=== PATIENT | female | born 1960 | race Caucasian/White ===

== ENCOUNTER 2017-07-21 19:54 | Emergency (ER) | payer BC ==
[~2017-07-21] VITALS: Ht 175.3 cm; Wt 155.4 kg
[2017-07-21 19:58] VITALS: TEMP 36.9; Ht 175.3 cm; Wt 155.4 kg
[2017-07-21] MEDS ORDERED: METO25TA56 PO (20:48)
[2017-07-21] MEDS ORDERED: ALLO100T PO (20:49)
[2017-07-21] MEDS ORDERED: PARO1TAB27 PO (20:50)
[2017-07-21] MEDS ORDERED: LEVO112T4 PO (20:51)
[2017-07-21] MEDS ORDERED: NXM/40 PO (20:52)
[2017-07-21] MEDS ORDERED: NVLGI7030 SQ ×2 (20:53→20:54)
[2017-07-21] MEDS ORDERED: LORA-741 PO (20:55)
[2017-07-21] MEDS ORDERED: DICY20TA35 PO (20:56)
[2017-07-21 21:01] LABS: BASO % 0.6 %; BASO ABS # 0.05 K/uL (0-0.2); COMPLETE YES; EOS % 3.4 %; HEMATOCRIT 39.5 % (37-47); IG% 0.3 %; LYMPH % 35.3 %; LYMPH ABS # 2.73 K/uL (1.2-3.4); MEAN CELL VOLUME 85.1 fL (80-100); MEAN CORPUSCULAR HEMOGLOBIN 29.5 pg (25-34); MEAN CORPUSCULAR HGB CONC 34.7 g/dl (32-36); MEAN PLATELET VOLUME 9.2 fL (7.4-10.4); MONO % 7.8 %; NEUT % 52.6 %; PLATELET COUNT 310 K/uL (130-400); RED BLOOD COUNT 4.64 M/uL (4.2-5.4); WHITE BLOOD COUNT 7.73 K/uL (4.8-10.8)
[2017-07-21 21:07] LABS: ALT/SGPT 22 U/L (12-78); BLOOD UREA NITROGEN 21 mg/dl (7-18); BUN/CREATININE RATIO 25.9 (10-20); CALCIUM 9.3 mg/dl (8.5-10.1); CARBON DIOXIDE 30 mmol/L (21-32); CHLORIDE 103 mmol/L (98-107); CREATININE 0.82 mg/dl (0.60-1.20); GLUCOSE 116 mg/dl (70-99); POTASSIUM 3.7 mmol/L (3.5-5.1); SODIUM 139 mmol/L (136-145)
[2017-07-21 21:12] LABS: ALB/GLOB RATIO 1.1 (0.9-2); ALKALINE PHOSPHATASE 90 U/L (45-117); AST/SGOT 16 U/L (15-37)
--- NOTE | 2017-07-21 21:14 | DIAGNOSTIC IMAGING REPORT ---
CHEST ONE VIEW PORTABLE HISTORY: 57 years-old Female epigastric and chest pain acute epigastric and chest pain with shortness of breath COMPARISON: Chest radiograph 10/09/2014 TECHNIQUE: Upright AP view of the chest FINDINGS: Cardiac silhouette is enlarged. Hazy bibasilar opacities are likely secondary to composite density artifact. Linear subsegmental atelectasis of the lateral left midlung redemonstrated. No pneumothorax, pleural effusion or focal airspace consolidation. Patient obesity noted. Mild convex right curvature of the midthoracic spine. Bones are grossly intact. IMPRESSION: No acute cardiopulmonary process. The above report was generated using voice recognition software. It may contain grammatical, syntax or spelling errors. Electronically signed by: Adonay Hernandez M.D. 07/21/2017 9:13 PM Dictated Date/Time: 07/21/2017 9:12 PM
[2017-07-21 21:58] LABS: URINE APPEARANCE CLEAR (CLEAR); URINE BILIRUBIN NEG (NEG); URINE COLOR YELLOW; URINE EPITHELIAL CELL AUTO >30 /lpf (0-5); URINE NITRITE NEG (NEG); UROBILINOGEN NEG (NEG); ZZUR CULT IF INDIC CLEAN CATCH NO
[2017-07-21] MEDS ORDERED: BENTYL HOME PACK 10 MG VIAL PO ONE (22:15)
[2017-07-21] MEDS ORDERED: RANITIDINE HCL 150 MG TAB PO ONE (22:15)
[2017-07-21 22:22] LABS: MANUAL MICROSCOPIC REQUIRED? NO; REVIEW REQ? NO
[2017-07-21] MEDS ORDERED: DICY10CA55 PO (22:35)
[2017-07-21] MEDS ORDERED: RANITAB6 PO (22:35)
--- NOTE | 2017-07-21 22:37 | EMERGENCY ROOM VISIT NOTE ---
History First contact with patient: 20:06 Chief Complaint: SHORTNESS OF BREATH Stated Complaint: SOB WITH EXERTION,EPIGASTRIC PAIN,UTI SYMPTOMS Nursing Triage Summary: c/o SOB worsening with exertion, difficulty with deep breathing. Urinary frequency and urgency History of Present Illness The patient is a 57 year old female who presents to the Emergency Room with multiple complaints. The patient states that for the past one week, she has had epigastric pain with radiation into the chest. She states she is short of breath at times. She has some nausea, but has not vomited. She also reports a dry cough. She states the pain as a burning sensation and rates the discomfort a 2/10. She does have a history of a hiatal hernia and Perla's esophagus and takes Nexium daily. She is scheduled for an EGD next month. She reports she has had a PE in the past 7 Years Ago. She was seen in an ER in [facility] in December of this year due to similar symptoms or shortness of breath and was admitted for a cardiac workup. At that time, she had a positive stress test but negative heart catheterization. The patient states that she only has one kidney and has frequent UTIs. She states she has had increased frequency of urination the last few days and is concerned she could be developing a urinary tract infection. The patient denies any fevers/chills or recent illness. She denies any changes in bowel movements. She does report she sometimes takes Bentyl which helped her symptoms. Review of Systems A complete 10 point review of systems was reviewed with the patient with pertinent positives and negatives as per history of present illness. All else were negative. Past Medical/Surgical History Medical Problems: (1) Pneumonia Social History Smoking Status: Former Smoker Marital Status: Housing Status: lives with family Occupation Status: employed Current/Historical Medications Scheduled Allopurinol (Zyloprim), 200 MG PO DAILY Dicyclomine Hcl (Bentyl), 1 CAP PO TID Esomeprazole Magnesium (Nexium), 40 MG PO DAILY Insulin Aspart 70/30 (Novolog Mix 70/30), 12 UNITS SQ QAM Insulin Aspart 70/30 (Novolog Mix 70/30), 16 UNITS SQ QPM Levothyroxine Sodium (Levothyroxine Sodium), 112 MCG PO DAILY Metoprolol Tartrate (Lopressor) (Lopressor), 12.5 MG PO BID Paroxetine (Paxil), 20 MG PO DAILY Ranitidine Hcl (Zantac 150 Maximum Streng), 1 TAB PO BID Scheduled PRN Dicyclomine Hcl (Bentyl), 20 MG PO TID PRN for UNDECIDED Lorazepam (Ativan), 0.5 MG PO BID PRN for Anxiety Physical Exam Vital Signs Date Time Temp Pulse Resp B/P (MAP) Pulse Ox O2 Delivery O2 Flow Rate FiO2 07/21/17 22:51 75 18 135/55 96 07/21/17 21:42 67 20 133/46 94 Room Air 07/21/17 20:13 Room Air 07/21/17 19:58 36.9 80 20 180/88 95 Room Air Physical Exam VITALS: Vitals are noted on the nurse's note and reviewed by myself. Vital signs stable. GENERAL: This is a 57-year-old obese female, in no acute distress, nondiaphoretic, well-developed well-nourished. SKIN: The skin was without rashes. EARS: External auditory canals clear, tympanic membranes pearly polanco without erythema or effusion bilaterally. EYES: Pupils equal round and reactive to light and accommodation. MOUTH: Mucous membranes moist. Tonsils are not enlarged. Pharynx without erythema or exudate. NECK: Supple without nuchal rigidity. No lymphadenopathy. HEART: Regular rate and rhythm without murmurs gallops or rubs. LUNGS: Clear to auscultation bilaterally without wheezes, rales or rhonchi. ABDOMEN: Positive bowel sounds x 4. Soft, mild epigastric tenderness to palpation. NEURO: Patient was alert and oriented to person place and time. Medical Decision & Procedures ER Provider Diagnostic Interpretation: CHEST ONE VIEW PORTABLE HISTORY: 57 years-old Female epigastric and chest pain acute epigastric and chest pain with shortness of breath COMPARISON: Chest radiograph 10/09/2014 TECHNIQUE: Upright AP view of the chest FINDINGS: Cardiac silhouette is enlarged. Hazy bibasilar opacities are likely secondary to composite density artifact. Linear subsegmental atelectasis of the lateral left midlung redemonstrated. No pneumothorax, pleural effusion or focal airspace consolidation. Patient obesity noted. Mild convex right curvature of the midthoracic spine. Bones are grossly intact. IMPRESSION: No acute cardiopulmonary process. Laboratory Results 07/21/17 20:46 Red Blood Count 4.64, Mean Corpuscular Volume 85.1, Mean Corpuscular Hemoglobin 29.5, Mean Corpuscular Hemoglobin Concent 34.7, Mean Platelet Volume 9.2, Neutrophils (%) (Auto) 52.6, Lymphocytes (%) (Auto) 35.3, Monocytes (%) (Auto) 7.8, Eosinophils (%) (Auto) 3.4, Basophils (%) (Auto) 0.6, Neutrophils # (Auto) 4.07, Lymphocytes # (Auto) 2.73, Monocytes # (Auto) 0.60, Eosinophils # (Auto) 0.26, Basophils # (Auto) 0.05 07/21/17 20:46 Test 07/21/17 20:46 07/21/17 21:40 White Blood Count 7.73 K/uL (4.8-10.8) Red Blood Count 4.64 M/uL (4.2-5.4) Hemoglobin 13.7 g/dL (12.0-16.0) Hematocrit 39.5 % (37-47) Mean Corpuscular Volume 85.1 fL (80-100) Mean Corpuscular Hemoglobin 29.5 pg (25-34) Mean Corpuscular Hemoglobin Concent 34.7 g/dl (32-36) Platelet Count 310 K/uL (130-400) Mean Platelet Volume 9.2 fL (7.4-10.4) Neutrophils (%) (Auto) 52.6 % Lymphocytes (%) (Auto) 35.3 % Monocytes (%) (Auto) 7.8 % Eosinophils (%) (Auto) 3.4 % Basophils (%) (Auto) 0.6 % Neutrophils # (Auto) 4.07 K/uL (1.4-6.5) Lymphocytes # (Auto) 2.73 K/uL (1.2-3.4) Monocytes # (Auto) 0.60 K/uL (0.11-0.59) Eosinophils # (Auto) 0.26 K/uL (0-0.5) Basophils # (Auto) 0.05 K/uL (0-0.2) RDW Standard Deviation 42.1 fL (36.4-46.3) RDW Coefficient of Variation 13.6 % (11.5-14.5) Immature Granulocyte % (Auto) 0.3 % Immature Granulocyte # (Auto) 0.02 K/uL (0.00-0.02) D-Dimer 280 ug/L FEU (0-500) Anion Gap 6.0 mmol/L (3-11) Est Creatinine Clear Calc Drug Dose 123.2 ml/min Estimated GFR () 92.7 Estimated GFR (Non- 80.0 BUN/Creatinine Ratio 25.9 (10-20) Calcium Level 9.3 mg/dl (8.5-10.1) Total Bilirubin 0.5 mg/dl (0.2-1) Aspartate Amino Transf (AST/SGOT) 16 U/L (15-37) Alanine Aminotransferase (ALT/SGPT) 22 U/L (12-78) Alkaline Phosphatase 90 U/L (45-117) Troponin I < 0.015 ng/ml (0-0.045) Total Protein 7.7 gm/dl (6.4-8.2) Albumin 4.0 gm/dl (3.4-5.0) Globulin 3.7 gm/dl (2.5-4.0) Albumin/Globulin Ratio 1.1 (0.9-2) Lipase 124 U/L (73-393) Urine Color YELLOW Urine Appearance CLEAR (CLEAR) Urine pH 6.0 (4.5-7.5) Urine Specific [place] 1.010 (1.000-1.030) Urine Protein NEG (NEG) Urine Glucose (UA) NEG (NEG) Urine Ketones NEG (NEG) Urine Occult Blood NEG (NEG) Urine Nitrite NEG (NEG) Urine Bilirubin NEG (NEG) Urine Urobilinogen NEG (NEG) Urine Leukocyte Esterase TRACE (NEG) Urine WBC (Auto) 1-5 /hpf (0-5) Urine RBC (Auto) 0-4 /hpf (0-4) Urine Hyaline Casts (Auto) 0 /lpf (0-5) Urine Epithelial Cells (Auto) >30 /lpf (0-5) Urine Bacteria (Auto) NEG (NEG) Date/Time Source Procedure Growth Status 07/21/17 21:40 Urine , Clean Catch Urine Culture - Final Escherichia Coli Complete Medications Administered Medications (Trade) Dose Ordered Sig/Vikki Route Start Time Stop Time Status Last Admin Dose Admin Dicyclomine HCl (Dicyclomine HCl 10MG Home Pack) 1 ea UD ONCE PO 07/21/17 22:15 07/21/17 22:16 DC 07/21/17 22:28 1 EA Ranitidine HCl (zANTac TAB) 150 mg NOW ONCE PO 07/21/17 22:15 07/21/17 22:16 DC 07/21/17 22:28 150 MG ECG Rate (beats per minute): 65 Rhythm: normal sinus Findings: other (poor R-wave progression) Comparison ECG Date: no prior available ED Course The patient was evaluated as above. Labs were drawn and IV access was obtained. Patient was medicated with by mouth Zantac. Discharge instructions were reviewed with the patient. The patient verbalized understanding of my assessment and treatment plan and was discharged home in good condition. Medical Decision Differential diagnosis includes ACS, VT, PE, GERD, gastritis, gallbladder disease, urinary tract infection, among others. The patient is a 57-year-old female who presents today complaining of epigastric discomfort, intermittent shortness of breath as well as urinary burning and frequency. Patient evidently has a long history of GERD and takes Nexium daily. She has an EGD scheduled within the next month. The patient has had a negative heart catheterization within the last year. Her troponin today is negative, and with symptoms for greater than 6 hours if do not feel a repeat troponin is indicated. D-dimer was not elevated. Chest x-ray was unremarkable. Labs showed no leukocytosis, anemia or concerning electrolyte abnormalities. Urinalysis was not suggestive of infection, however given the patient's history of recurrent UTIs a culture will be sent and is pending. Patient was advised to follow-up closely with her primary care provider at home regarding today's symptoms. I do not feel they are likely to be cardiac in nature and seem to be related to her chronic GERD. She was given a dose of Zantac and instructed to start this at home. She requested a prescription for Bentyl and was given this as well. She was advised to return to the emergency department with any worsening or new/concerning symptoms. The patient's case was reviewed with Dr. Cerrato, ED attending physician, who agreed with my assessment and treatment plan. Based on the patient's presentation and work up, I feel the patient is stable for outpatient treatment. The patient was educated to return to the emergency department for any worsening of their current condition or new/concerning symptoms. She will follow up with her PCP. Medication Reconcilliation Current Medication List: was personally reviewed by me Blood Pressure Screening Patient's blood pressure: Normal blood pressure Impression Primary Impression: Epigastric abdominal pain Departure Information Dispostion Home / Self-Care Condition GOOD Prescriptions Ranitidine Hcl (ZANTAC 150 MAXIMUM STRENG) 150 Mg Tab 1 TAB PO BID for 14 Days, #28 TAB Prov: Roxane Vines PA-C 07/21/17 Dicyclomine Hcl (BENTYL) 10 Mg Cap 1 CAP PO TID for 7 Days, #21 CAP Prov: Roxane Vines PA-C 07/21/17 Referrals No Doctor, Assigned (PCP) Patient Instructions My [facility] Additional Instructions Zantac as prescribed. Rest and drink plenty of fluids. Follow up with your PCP this week. Call for appointment. Return to the ED with any worsening or new/concerning symptoms.
[2017-07-21 22:51] VITALS: BP 135/55; PULSE 75; O2SAT 96
--- NOTE | 2017-07-23 12:28 | Pharmacy Progress Note ---
ED Pharmacist Culture FollowUp Date of Service: Jul 23, 2017. Called patient regarding E. coli urine culture. Prescription for bactrim 1 DS tab PO BID X 5 days called to [facility] ([phone]) at the patient's request. Case discussed with Dr. Arredondo, who is the prescribing provider.
== END 2017-07-21 22:53 | disposition home or self-care (01) ==
LOC: C.EDB 19:56
DX: R10.13 Epigastric pain (principal); R06.02 Shortness of breath; R35.0 Frequency of micturition; K21.9 Gastro-esophageal reflux disease without esophagitis; Z87.891 Personal history of nicotine dependence

== ENCOUNTER 2024-09-24 20:07 | Observation (INO) ==
[2024-09-24 21:03] LABS: Albumin Globulin Ratio 1.7 (0.9-2); Albumin Level 4.8 gm/dl (3.4-5.0); BUN Creatinine Ratio 23.3 (10-20); Bilirubin,Total 0.6 mg/dl (0.2-1.0); Calcium 9.8 mg/dl (8.6-10.3); Creatinine Clr Calc Pharmacy 106.7 ml/min; Globulin 2.8 gm/dl (2.5-4.0); Potassium 3.4 mmol/L (3.5-5.1); Total Protein 7.6 gm/dl (6.0-8.3)
[2024-09-24 21:09] LABS: Troponin I High Sensitivity 2.7 pg/ml (0-14)
[2024-09-24 21:22] LABS: INR 0.9 (0.9-1.1); Partial Thromboplastin Time 26 Seconds (21-31); Prothrombin Time 10.3 Seconds (9.0-12.0)
[2024-09-24 21:33] LABS: Adenovirus PCR Not Detected (NotDetected); Bordetella parapertussis PCR Not Detected (NotDetected); Bordetella pertussis PCR Not Detected (NotDetected); Chlamydia pneumoniae PCR Not Detected (NotDetected); Coronavirus 229E PCR Not Detected (NotDetected); Coronavirus CoV-2 (COVID19)PCR Not Detected (NotDetected); Coronavirus HKU1 PCR Not Detected (NotDetected); Coronavirus NL63 PCR Not Detected (NotDetected); Coronavirus OC43PCR Not Detected (NotDetected); Human Metapneumovirus PCR Not Detected (NotDetected); Influenza A PCR Not Detected (NotDetected); Influenza B PCR Not Detected (NotDetected); Mycoplasma pneumoniae PCR Not Detected (NotDetected); Parainfluenza Virus 1 PCR Not Detected (NotDetected); Parainfluenza Virus 2 PCR Not Detected (NotDetected); Parainfluenza Virus 3 PCR Not Detected (NotDetected); Parainfluenza Virus 4 PCR Not Detected (NotDetected); Respiratory Syncytial VirusPCR Not Detected (NotDetected); Rhinovirus/Enterovirus PCR Not Detected (NotDetected)
[2024-09-24] MEDS: NITROGLYCERIN 2% OINTMENT 30GM TUBE EXT STA (21:37)
[2024-09-24 21:38] LABS: Basophils # (auto) 0.07 K/uL (0.00-0.20); Basophils % (auto) 1.3 %; Eosinophils # (auto) 0.18 K/uL (0.00-0.50); Eosinophils % (auto) 3.4 %; Hematocrit (blood only) 37.8 % (37.0-47.0); Immature Granulocytes # (auto) 0.01 K/uL (0.01-0.20); Immature Granulocytes % (auto) 0.2 %; Lymphocytes # (auto) 1.98 K/uL (1.20-3.40); Lymphocytes % (auto) 37.5 %; Mean Corpuscular Hemoglobin 30.2 pg (25.0-34.0); Mean Corpuscular Hgb Conc 34.4 g/dL (32.0-36.0); Mean Corpuscular Volume 87.7 fL (80.0-100.0); Mean Platelet Volume 10.1 fL (9.4-12.4); Monocytes # (auto) 0.51 K/uL (0.11-0.59); Monocytes % (auto) 9.7 %; Neutrophils # (auto) 2.53 K/uL (1.40-6.50); Neutrophils % (auto) 47.9 %; Platelet Count 288 K/uL (130-400); RDW Coefficient of Variation 13.3 % (11.5-14.5); RDW Standard Deviation 42.5 fL (36.4-46.3); Red Blood Count 4.31 M/uL (4.20-5.40); White Blood Count 5.28 K/ul (4.8-10.8)
[2024-09-24] MEDS: FAMOTIDINE 20MG IV PUSH 20 MG/5 ML SYR IV STA (21:38)
[2024-09-24] MEDS: ASPIRIN CHEW 324 MG PO STA (21:38)
--- NOTE | 2024-09-24 21:53 | Emergency Department Note ---
Impression & Plan Precordial chest pain ED Provider Note NAME: RAQUEL HERNANDEZ AGE: 64 SEX: F : 1960 ARRIVES VIA: Walk-In INFORMANT: [Patient] ED PROVIDER(S): [Rufus Yao MD] CHIEF COMPLAINT: Chest pain HISTORY OF PRESENT ILLNESS: The patient is a 64-year-old female who has not felt herself for 3 days. She has been fatigued, she has no energy. She has had some headache and neck pain for several weeks but she states this is not really all that unusual. The headache and neck pain are more of a chronic issue, the fatigue and weakness are new. Today, she was doing some shopping, she was walking. She developed some chest pressure and pain. She felt short of breath and exhausted. She had pain to her left neck and left arm/shoulder. She had to rest the feel better. She has had symptoms now for 2.5 hours. The patient was nauseated with her symptoms, no sweating. The patient has no known coronary disease. She had a stress test performed many years ago and passed. There is a strong family history of aortic stenosis and she is checked yearly with an echo for this possibility. PMHx/PSHx/Social Hx: See Below PHYSICAL EXAM: GENERAL: Patient is in no acute distress. HEENT: No acute trauma, normocephalic atraumatic, mucous membranes moist, no nasal congestion. NECK: No stridor, no adenopathy, no meningismus, trachea is midline. LUNGS: Clear to auscultation bilaterally, no wheeze, no rhonchi, breath sounds equal. HEART: Subtle systolic murmur, regular rate and rhythm. ABDOMEN: Soft, nontender, no peritonitis. Obese. EXTREMITIES: No cyanosis, full range of motion of all the joints without pain or difficulty. NEUROLOGIC: Oriented x 3, no acute motor or sensory deficits, no focal weakness. SKIN: No jaundice, no diaphoresis. DIFFERENTIAL DIAGNOSIS: Cardiac ischemia, [place], reflux, musculoskeletal pain, viral illness, anemia, among others. EMERGENCY DEPARTMENT PROCEDURES: MEDICAL DECISION MAKING: There is no leukocytosis or concerning anemia. There is a normal platelet count. No coagulopathy. Potassium slightly low but not in need of emergent correction. No renal failure. No concerning liver enzyme elevation. TSH was slightly high however, the T4 was normal. Respiratory bio fire was negative. Chest x-ray shows some mild cardiomegaly, there was no pneumonia or CHF. ECG showed a normal sinus rhythm, no ischemia. Cardiac enzyme testing x 1 was not consistent with acute cardiac injury. The patient was given 4 baby aspirin. She was given 1 inch of nitroglycerin paste. She was given IV Pepcid. The patient is currently resting comfortably. She presents with exertional chest pain with shortness of breath and nausea. I do think further cardiac workup is warranted. Angina is a concern. I spoke with the patient and case management. The on-call hospitalist was consulted. Prior/Outside records/notes reviewed: None ECG per my interpretation: Indication was chest pain. The ECG shows a normal sinus rhythm with a rate of 60. There is an incomplete right bundle branch block. There is no ST elevation, no PVCs. There is potential old anterior lateral infarct as there is some poor wave R wave progression. QTc was 420. Continuous Cardiac Monitoring per my interpretation: An order was placed for continuous cardiac monitoring. The monitor shows a rate of 61 with normal sinus rhythm. Imaging/x-ray results per my interpretation: Chest x-ray does show some cardiomegaly, no pneumonia or CHF. Chronic Medical/Social conditions affecting care: None Care/Management discussed with: Case management, the on-call hospitalist. Level of care consideration(s): After review of the information above and other included data: --I believe the patient requires escalation of care to admission DISPOSITION: Admission Past Med/Surg History Problem List (Updated 09/25/24 @ 02:21 by Rufus Yao MD) Precordial chest pain (Acute) Epigastric abdominal pain (Acute) Influenza (Acute) Pneumonitis (Acute) Encounter for pre-operative examination Medical History Sleep apnea cpap Solitary left kidney Hyperlipidemia Hypothyroidism Kidney stones Hypertension GERD (gastroesophageal reflux disease) Deep vein thrombosis ~2010, unknown reason, possibly r/t sedentary job. no problems since. Pulmonary embolism ~2010, unknown reason, possibly r/t sedentary. no problems since. Diabetes mellitus, type 2 hx -- no medications since gastric surgery Surgical History History of cataract surgery RT History of colonoscopy History of esophagogastroduodenoscopy (EGD) S/P cystoscopy with ureteral stent placement multiple S/P bilateral breast reduction History of cholecystectomy History of section H/O eye surgery left tear duct reattachment (as a child) Status post surgery right ureter removal H/O right nephrectomy (~1960) History of bladder surgery as an infant "removed a sac of pus" S/P gastric sleeve procedure sleeve gastrectomy Family History Other No family history of adverse response to anesthesia Social History Smoking Status: Former smoker Tobacco Type: Cigarettes Second Hand Exposure: No; Do You Dip or Chew Tobacco: No; Hx Alcohol Use: Yes Alcohol type: wine Hx Substance Use: No Preferred Language: Armenian Communication Ability: Effective Adult Remedial Education Instructor Required: No Beliefs That Will Affect Care: None Current Living Situation: Alone Feels Safe at Home: Yes Assistive Devices: CPAP and Glasses Allergies Allergies Allergy/AdvReac Type Severity Reaction Status Date / Time diphenhydramine Allergy Severe Anaphylaxis Verified 02/11/24 02:17 nitrofurantoin Allergy Intermediate throat Verified 09/25/24 01:26 [From Macrobid] irritation and itch all over shellfish derived Allergy Intermediate SEAFOOD-RED/ITCH Verified 09/24/24 23:36 ALL OVER Home Meds Home Medications Medication Instructions Recorded Confirmed lorazepam 0.5 mg tablet 0.5 mg PO BID PRN Anxiety 07/04/21 09/24/24 allopurinol 100 mg tablet 200 mg PO QAM kidney stone 08/29/21 09/24/24 prevention atorvastatin 20 mg tablet 20 mg PO 3XWK 08/29/21 09/24/24 biotin 1 mg capsule 1 mg PO 3XWK 08/29/21 09/24/24 levothyroxine 112 mcg tablet 112 mcg PO QAM 08/29/21 09/24/24 multivitamin 1 tab PO QAM 08/29/21 09/24/24 pantoprazole 40 mg tablet,delayed 40 mg PO BID 08/29/21 09/24/24 release aspirin 81 mg tablet,delayed 162 mg PO QAM 09/14/23 09/24/24 release gabapentin 300 mg capsule 300 mg PO HS 09/14/23 09/24/24 ascorbic acid (vitamin C) 500 mg 500 mg PO QAM 02/11/24 09/24/24 tablet (Vitamin C) cyanocobalamin (vitamin B-12) 500 500 mcg PO QAM 02/11/24 09/24/24 mcg tablet (Vitamin B-12) cholecalciferol (vitamin D3) 25 25 mcg PO QAM 09/24/24 09/24/24 mcg (1,000 unit) tablet (Vitamin D3) Results & Data (ED) Vital Signs Vital Signs - 24 hr 09/24/24 20:09 09/24/24 21:08 09/24/24 21:08 Temperature 36.6 C Temperature Source Oral Pulse Rate 68 Pulse Rate [Apical] 65 Respiratory Rate 18 20 Respiratory Effort / Characteristics Non-Labored Spontaneous Non-Labored Spontaneous Respiratory Depth Normal Normal Respiratory Pattern Regular Regular Blood Pressure 160/92 H Blood Pressure [Right Arm] 146/72 H Blood Pressure Mean 114 Blood Pressure Mean [Right Arm] 96 Blood Pressure Position Sitting Pulse Oximetry 100 99 99 Oxygen Delivery Method Room Air Room Air Room Air Sepsis Recent Fever Within 48 Hours No Sepsis New/Unexplained Change in Mental Status N/A Sepsis Action Taken by Nursing No Action Required 09/24/24 21:09 09/24/24 21:09 09/24/24 22:20 Temperature Temperature Source Pulse Rate 61 Pulse Rate [Apical] 77 Respiratory Rate 17 20 Respiratory Effort / Characteristics Respiratory Depth Normal Respiratory Pattern Blood Pressure Blood Pressure [Right Arm] 146/67 H Blood Pressure Mean Blood Pressure Mean [Right Arm] 93 Blood Pressure Position Pulse Oximetry 99 99 98 Oxygen Delivery Method Room Air Room Air Room Air Sepsis Recent Fever Within 48 Hours Sepsis New/Unexplained Change in Mental Status Sepsis Action Taken by [facility] Medications Current Medication List: was personally reviewed by me Laboratory Data Attestation: I reviewed the patient's lab results. 09/24/24 20:30 09/24/24 20:30 Lab Results 09/24/24 Range/Units 20:30 WBC 5.28 (4.8-10.8) K/ul RBC 4.31 (4.20-5.40) M/uL Hgb 13.0 (12.0-16.0) g/dl Hct 37.8 (37.0-47.0) % MCV 87.7 (80.0-100.0) fL MCH 30.2 (25.0-34.0) pg MCHC 34.4 (32.0-36.0) g/dL RDW Std Deviation 42.5 (36.4-46.3) fL RDW Coeff of Silvia 13.3 (11.5-14.5) % Plt Count 288 (130-400) K/uL MPV 10.1 (9.4-12.4) fL Immature Gran % (Auto) 0.2 % Neut % (Auto) 47.9 % Lymph % (Auto) 37.5 % [place] % (Auto) 9.7 % Eos % (Auto) 3.4 % Baso % (Auto) 1.3 % Neut # (Auto) 2.53 (1.40-6.50) K/uL Lymph # (Auto) 1.98 (1.20-3.40) K/uL [place] # (Auto) 0.51 (0.11-0.59) K/uL Eos # (Auto) 0.18 (0.00-0.50) K/uL Baso # (Auto) 0.07 (0.00-0.20) K/uL Immature Gran # (Auto) 0.01 (0.01-0.20) K/uL PT 10.3 (9.0-12.0) Seconds INR 0.9 (0.9-1.1) APTT 26 (21-31) Seconds PTT Ratio 1.0 Sodium 138 (136-145) mmol/L Potassium 3.4 L (3.5-5.1) mmol/L Chloride 101 (98-107) mmol/L Carbon Dioxide 29 (21-32) mmol/L Anion Gap 8 (3-11) BUN 17 (6-23) mg/dl Creatinine 0.73 (0.6-1.2) mg/dl Est Cr Clr Drug Dosing 106.7 ml/min eGFR 92.35 BUN/Creatinine Ratio 23.3 H (10-20) Glucose 86 (70-99(Fasting)) mg/dl Calcium 9.8 (8.6-10.3) mg/dl Magnesium 2.1 (1.7-2.4) mg/dl Total Bilirubin 0.6 (0.2-1.0) mg/dl AST 18 (13-39) U/L ALT 12 (7-52) U/L Alkaline Phosphatase 71 (34-104) U/L Troponin I High Sens 2.7 (0-14) pg/ml Total Protein 7.6 (6.0-8.3) gm/dl Albumin 4.8 (3.4-5.0) gm/dl Globulin 2.8 (2.5-4.0) gm/dl Albumin/Globulin Ratio 1.7 (0.9-2) Adenovirus (PCR) Not Detected (NotDetected) B. pertussis DNA (PCR) Not Detected (NotDetected) B.parapertussis DNA PCR Not Detected (NotDetected) Lyme Disease Screen Negative (Negative) C. pneumoniae DNA (PCR) Not Detected (NotDetected) Coronavirus OC43 (PCR) Not Detected (NotDetected) Coronavirus HKU1 (PCR) Not Detected (NotDetected) Coronavirus 229E (PCR) Not Detected (NotDetected) SARS-CoV-2 (PCR) Not Detected (NotDetected) Coronavirus NL63 (PCR) Not Detected (NotDetected) Human Metapneumovir PCR Not Detected (NotDetected) Influenza Type A (PCR) Not Detected (NotDetected) Influenza Type B (PCR) Not Detected (NotDetected) M. pneumoniae (PCR) Not Detected (NotDetected) Parainfluenza 1 (PCR) Not Detected (NotDetected) Parainfluenza 2 (PCR) Not Detected (NotDetected) Parainfluenza 3 (PCR) Not Detected (NotDetected) Parainfluenza 4 (PCR) Not Detected (NotDetected) RSV (PCR) Not Detected (NotDetected) Entero/Rhino (PCR) Not Detected (NotDetected) Administered Medications Potassium Chloride/Sodium Chloride (Normal Saline W/20 Meq Kcl) 20 meq in 1,000 mls @ 60 mls/hr IV .[id number] ONE Stop: 09/25/24 18:54 Last Admin: 09/25/24 02:05 Dose: 60 mls/hr Documented By: AES Insulin Aspart (Insulin Aspart Per Unit Charge) 0 units SC Q6 JAKE Stop: 10/25/24 01:14 Last Admin: 09/25/24 01:51 Dose: Not Given Documented By: AES Co-signed By: SG Loratadine (Loratadine 10 Mg Tab) 10 mg PO HS [facility] Stop: 10/25/24 01:44 Last Admin: 09/25/24 02:02 Dose: 10 mg Documented By: KENNA Discontinued Medications Acetaminophen (Acetaminophen 325 Mg Tab) 650 mg PO NOW STA Stop: 09/25/24 01:42 Last Admin: 09/25/24 02:01 Dose: 650 mg Documented By: KENNA Aspirin (Aspirin Chew 324 Mg) 324 mg PO NOW STA Stop: 09/24/24 21:32 Last Admin: 09/24/24 21:38 Dose: 324 mg Documented By: JE Gabapentin (Gabapentin 300 Mg Cap) 300 mg PO ONE STA Stop: 09/24/24 23:35 Last Admin: 09/25/24 00:13 Dose: 300 mg Documented By: MICAELA Famotidine (Pepcid 20mg Iv Push) 20 mg in 5 mls @ 2.5 mls/min IV NOW STA Stop: 09/24/24 21:32 Last Admin: 09/24/24 21:38 Dose: 2.5 mls/min Documented By: JE Potassium Chloride/Dextrose/Sod Cl (D5nss + 20meq Kcl) 20 meq in 1,000 mls @ 50 mls/hr IV .Q20H STA Stop: 09/25/24 19:32 Last Infusion: 09/25/24 01:57 Dose: Infused Documented By: Admin: 09/25/24 00:14 Dose: 50 mls/hr Documented By: MICAELA Nitroglycerin (Nitroglycerin 2% Ointment 30gm Tube) 1 inch EXT NOW STA Stop: 09/24/24 21:32 Last Admin: 09/24/24 21:37 Dose: 1 inch Documented By: JE Potassium Chloride (Potassium Chloride Crtab 20 Meq Tabcr) 40 meq PO NOW STA Stop: 09/24/24 21:53 Last Admin: 09/24/24 22:18 Dose: 40 meq Documented By: JE Tizanidine HCl (Tizanidine Hcl 4 Mg Tablet) 2 mg PO NOW STA Stop: 09/25/24 01:44 Last Admin: 09/25/24 02:03 Dose: 2 mg Documented By: KENNA Discharge Plan Visit Data Chief Complaint: Chest Pain Stated Complaint: CHEST PAIN, SOB, WEAK, NAUSEA. ED Provider: Rufus Yao Discharge Problem: Precordial chest pain Patient Disposition: Admitted As Inpatient Condition: Fair Discharge Instructions Interventions: ED Discharge Assessment Last Done: 09/25/24 00:45
[2024-09-24] MEDS: POTASSIUM CHLORIDE CRTAB 20 MEQ TABCR PO STA (22:18)
[2024-09-24 22:21] LABS: Magnesium 2.1 mg/dl (1.7-2.4)
--- NOTE | 2024-09-24 23:23 | History & Physical Report ---
Date of Service September 24, 2024 Assessment & Plan (1) Chest pain: Plan: Chest pain rule out ACS given nitroglycerin relief Patient has risk factors for ischemic heart disease Lacunar infarct on CT head Patient denies prior history of strokes. 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 until patient seen by cardiology in anticipation of ischemic workup Carotid Dopplers and TTE for stroke workup given CT head findings Update lipid profile Recheck TSH outpatient next month Replace potassium ISS BG goal 1 10-1 40 DVT prophylaxis. Lovenox subcu Full code Patient son requesting updates providers. Mr. Rufus Shafer, contact #[phone]. Text document was generated using [employer] voice recognition software. It may contain grammatical or spelling errors. Kindly contact undersigned for clarification of any documentation item in question. History of Present Illness Chief Complaint: Chest pain Primary Care Provider: Mine Beverly MD History obtained from patient, family, and records. Medical history significant for hypertension, hyperlipidemia, history PVCs, PE/DVT status post Coumadin, KEELY on BiPAP, history gastric bypass, history renal agenesis/duplicated ureter status post nephrectomy as per records, DM2 diet- controlled, hypothyroidism, GERD, gout, past tobacco abuse. Patient achy headache, neck pain symptoms the last few weeks. Tired more than usual. Denies depression. Admits to personal stressors. Denies inordinate OTC NSAID intake. Compliant with home medications. No recollection of trauma, no arm or leg weakness. 3 days ago, patient noted intermittent left-sided chest pain going to the neck and arm with some SOB. Discomfort relieved by nitroglycerin at the ER. Medical History as above Surgical History : section, cholecystectomy, nephrectomy, breast reduction, sleeve gastrectomy Family History : Dementia, aortic stenosis, DM Personal/Social history : Past tobacco abuse, no Et[facility] intake, [facility] Allergies Allergy/AdvReac Type Severity Reaction Status Date / Time diphenhydramine Allergy Severe Anaphylaxis Verified 02/11/24 02:17 nitrofurantoin Allergy Intermediate throat Verified 09/25/24 01:26 [From Macrobid] irritation and itch all over shellfish derived Allergy Intermediate SEAFOOD-RED/ITCH Verified 09/24/24 23:36 ALL OVER Home Medications Medication Instructions Recorded Confirmed Type lorazepam 0.5 mg tablet 0.5 mg PO BID PRN Anxiety 07/04/21 09/24/24 History allopurinol 100 mg tablet 200 mg PO QAM kidney stone 08/29/21 09/24/24 History prevention atorvastatin 20 mg tablet 20 mg PO 3XWK 08/29/21 09/24/24 History biotin 1 mg capsule 1 mg PO 3XWK 08/29/21 09/24/24 History levothyroxine 112 mcg tablet 112 mcg PO QAM 08/29/21 09/24/24 History multivitamin 1 tab PO QAM 08/29/21 09/24/24 History pantoprazole 40 mg tablet,delayed 40 mg PO BID 08/29/21 09/24/24 History release aspirin 81 mg tablet,delayed 162 mg PO QAM 09/14/23 09/24/24 History release gabapentin 300 mg capsule 300 mg PO HS 09/14/23 09/24/24 History ascorbic acid (vitamin C) 500 mg 500 mg PO QAM 02/11/24 09/24/24 History tablet (Vitamin C) cyanocobalamin (vitamin B-12) 500 500 mcg PO QAM 02/11/24 09/24/24 History mcg tablet (Vitamin B-12) cholecalciferol (vitamin D3) 25 25 mcg PO QAM 09/24/24 09/24/24 History mcg (1,000 unit) tablet (Vitamin D3) Past Med/Surg History Problem List (Updated 09/25/24 @ 07:38 by Antwan Macdonald MD) Chest pain Precordial chest pain (Acute) Epigastric abdominal pain (Acute) Influenza (Acute) Pneumonitis (Acute) Encounter for pre-operative examination Medical History Sleep apnea cpap Solitary left kidney Hyperlipidemia Hypothyroidism Kidney stones Hypertension GERD (gastroesophageal reflux disease) Deep vein thrombosis ~2010, unknown reason, possibly r/t sedentary job. no problems since. Pulmonary embolism ~2010, unknown reason, possibly r/t sedentary. no problems since. Diabetes mellitus, type 2 hx -- no medications since gastric surgery Surgical History History of cataract surgery RT History of colonoscopy History of esophagogastroduodenoscopy (EGD) S/P cystoscopy with ureteral stent placement multiple S/P bilateral breast reduction History of cholecystectomy History of section H/O eye surgery left tear duct reattachment (as a child) Status post surgery right ureter removal H/O right nephrectomy (~196) History of bladder surgery as an "removed a sac of pus" S/P gastric sleeve procedure sleeve gastrectomy Family History Other No family history of adverse response to anesthesia Social History Smoking Status: Former smoker Tobacco Type: Cigarettes Second Hand Exposure: No; Do You Dip or Chew Tobacco: No; Hx Alcohol Use: Yes Alcohol type: wine Hx Substance Use: No Preferred Language: Georgian Communication Ability: Effective Search Consultant Required: No Beliefs That Will Affect Care: None Current Living Situation: Alone Feels Safe at Home: Yes Assistive Devices: CPAP and Glasses Review of Systems Review of Systems: As per HPI, all other systems reviewed and negative Physical Exam Physical Exam: GENERAL: Comfortable, slightly anxious, morbidly obese, pleasant, no respiratory distress SKIN: Normal color, warm HEENT: Bespectacled, [place] palpebral conjunctivae, no ptosis, moist buccal mucosa NECK : Supple, minimal posterior cervical tenderness CHEST : CTA, no tenderness HEART : RRR, no obvious murmurs ABDOMEN: Some distention, nontender EXTREMITIES : Minimal LE swelling, no LE tenderness, no other conspicuous deformities noted NEUROLOGIC : Coherent, no facial asymmetry, no other gross focality Results & Data Results & Data Vital Signs (Past 12 Hours) Vital Signs Temp Pulse Pulse Resp BP BP Pulse Ox 09/24/24 22:20 77 20 146/67 H 98 09/24/24 21:09 61 17 99 09/24/24 21:09 99 09/24/24 21:08 65 20 146/72 H 99 09/24/24 21:08 99 09/24/24 20:09 36.6 C 68 18 160/92 H 100 O2 Del Method 09/24/24 22:20 Room Air 09/24/24 21:09 Room Air 09/24/24 21:09 Room Air 09/24/24 21:08 Room Air 09/24/24 21:08 Room Air 09/24/24 20:09 Room Air Laboratory Results Laboratory Results WBC 5.28 K/ul (4.8-10.8) 09/24/24 20:30 RBC 4.31 M/uL (4.20-5.40) 09/24/24 20:30 Hgb 13.0 g/dl (12.0-16.0) 09/24/24 20:30 Hct 37.8 % (37.0-47.0) 09/24/24 20:30 MCV 87.7 fL (80.0-100.0) 09/24/24 20:30 MCH 30.2 pg (25.0-34.0) 09/24/24 20:30 MCHC 34.4 g/dL (32.0-36.0) 09/24/24 20:30 RDW Std Deviation 42.5 fL (36.4-46.3) 09/24/24 20:30 RDW Coeff of Silvia 13.3 % (11.5-14.5) 09/24/24 20:30 Plt Count 288 K/uL (130-400) 09/24/24 20:30 MPV 10.1 fL (9.4-12.4) 09/24/24 20:30 Immature Gran % (Auto) 0.2 % 09/24/24 20:30 Neut % (Auto) 47.9 % 09/24/24 20:30 Lymph % (Auto) 37.5 % 09/24/24 20:30 [place] % (Auto) 9.7 % 09/24/24 20:30 Eos % (Auto) 3.4 % 09/24/24 20:30 Baso % (Auto) 1.3 % 09/24/24 20:30 Neut # (Auto) 2.53 K/uL (1.40-6.50) 09/24/24 20:30 Lymph # (Auto) 1.98 K/uL (1.20-3.40) 09/24/24 20:30 [place] # (Auto) 0.51 K/uL (0.11-0.59) 09/24/24 20:30 Eos # (Auto) 0.18 K/uL (0.00-0.50) 09/24/24 20:30 Baso # (Auto) 0.07 K/uL (0.00-0.20) 09/24/24 20:30 Immature Gran # (Auto) 0.01 K/uL (0.01-0.20) 09/24/24 20:30 PT 10.3 Seconds (9.0-12.0) 09/24/24 20:30 INR 0.9 (0.9-1.1) 09/24/24 20:30 APTT 26 Seconds (21-31) 09/24/24 20:30 PTT Ratio 1.0 09/24/24 20:30 Sodium 138 mmol/L (136-145) 09/24/24 20:30 Potassium 3.4 mmol/L (3.5-5.1) L 09/24/24 20:30 Chloride 101 mmol/L (98-107) 09/24/24 20:30 Carbon Dioxide 29 mmol/L (21-32) 09/24/24 20:30 Anion Gap 8 (3-11) 09/24/24 20:30 BUN 17 mg/dl (6-23) 09/24/24 20:30 Creatinine 0.73 mg/dl (0.6-1.2) 09/24/24 20:30 Est Cr Clr Drug Dosing 106.7 ml/min 09/24/24 20:30 eGFR 92.35 09/24/24 20:30 BUN/Creatinine Ratio 23.3 (10-20) H 09/24/24 20:30 Glucose 86 mg/dl (70-99(Fasting)) 09/24/24 20:30 Calcium 9.8 mg/dl (8.6-10.3) 09/24/24 20:30 Magnesium 2.1 mg/dl (1.7-2.4) 09/24/24 20:30 Total Bilirubin 0.6 mg/dl (0.2-1.0) 09/24/24 20:30 AST 18 U/L (13-39) 09/24/24 20:30 ALT 12 U/L (7-52) 09/24/24 20:30 Alkaline Phosphatase 71 U/L (34-104) 09/24/24 20:30 Troponin I High Sens 2.7 pg/ml (0-14) 09/24/24 20:30 Total Protein 7.6 gm/dl (6.0-8.3) 09/24/24 20:30 Albumin 4.8 gm/dl (3.4-5.0) 09/24/24 20:30 Globulin 2.8 gm/dl (2.5-4.0) 09/24/24 20:30 Albumin/Globulin Ratio 1.7 (0.9-2) 09/24/24 20:30 Adenovirus (PCR) Not Detected (NotDetected) 09/24/24 20:30 B. pertussis DNA (PCR) Not Detected (NotDetected) 09/24/24 20:30 B.parapertussis DNA PCR Not Detected (NotDetected) 09/24/24 20:30 C. pneumoniae DNA (PCR) Not Detected (NotDetected) 09/24/24 20:30 Coronavirus OC43 (PCR) Not Detected (NotDetected) 09/24/24 20:30 Coronavirus HKU1 (PCR) Not Detected (NotDetected) 09/24/24 20:30 Coronavirus 229E (PCR) Not Detected (NotDetected) 09/24/24 20:30 SARS-CoV-2 (PCR) Not Detected (NotDetected) 09/24/24 20:30 Coronavirus NL63 (PCR) Not Detected (NotDetected) 09/24/24 20:30 Human Metapneumovir PCR Not Detected (NotDetected) 09/24/24 20:30 Influenza Type A (PCR) Not Detected (NotDetected) 09/24/24 20:30 Influenza Type B (PCR) Not Detected (NotDetected) 09/24/24 20:30 M. pneumoniae (PCR) Not Detected (NotDetected) 09/24/24 20:30 Parainfluenza 1 (PCR) Not Detected (NotDetected) 09/24/24 20:30 Parainfluenza 2 (PCR) Not Detected (NotDetected) 09/24/24 20:30 Parainfluenza 3 (PCR) Not Detected (NotDetected) 09/24/24 20:30 Parainfluenza 4 (PCR) Not Detected (NotDetected) 09/24/24 20:30 RSV (PCR) Not Detected (NotDetected) 09/24/24 20:30 Entero/Rhino (PCR) Not Detected (NotDetected) 09/24/24 20:30 Chest x-ray: No acute pulmonary abnormalities are identified. No interval chnages. CT head: 1. No evidence of acute intracranial hemorrhage, gross territorial infarction or mass-effect. 2. Mild periventricular deep white matter ischemic changes. 3. Small hypodensity is identified in inferior aspect of the basal ganglia bilaterally, likely prominent virchow daria spaces/lacunar infarcts. 4. Tiny hypodensity in left external capsule, likely lacunar infarct 5. Redemonstration of interval stable hyperostosis frontalis interna. CT cervical spine: 1. Straightening of cervical curvature most likely due to paraspinal muscle spasm. 2. No evidence of acute fracture 3. Multilevel disc osteophyte complexes more marked, at C5-C6 and C6-C7. MRI cervical spine may be obtained for further evaluation. 4. Subtle lucent areas, in cervical vertebral bodies at multiple levels, likely due to osteopenia 5. Cervical spondylosis Diagnostic Findings EKG as per my interpretation : Rate 50, sinus bradycardia, LAD, LAFB, incomplete RBBB, T wave abnormalities septal leads
[2024-09-24] MEDS ORDERED: LORazepam 0.5 MG TAB PO PRN (23:26)
[2024-09-24] MEDS ORDERED: MoRPHine SULFATE 4 MG/ML 1 ML CARP\\VIAL IV PRN (23:26)
[2024-09-24] MEDS ORDERED: oxyCODONE HCL IR 5 MG TAB (IMMEDIATE RELEASE) PO PRN (23:26)
[2024-09-24] MEDS ORDERED: PROMETHAZINE 12.5 MG/50.5 ML BAG IV PRN (23:26)
[2024-09-24] MEDS ORDERED: NITROGLYCERIN SL 0.4 MG/TAB TAB SL PRN (23:33)
[2024-09-25] MEDS: GABAPENTIN 300 MG CAP PO STA (00:13)
[2024-09-25] MEDS: D5NSS + 20MEQ KCL 20 MEQ/1,000 ML BAG IV STA (00:14)
[2024-09-25 00:53] LABS: Troponin I High Sensitivity 3.8 pg/ml (0-14)
--- NOTE | 2024-09-25 00:53 | CT Scan Report ---
EXAM: CT head/brain wo con CLINICAL HISTORY: HEADACHE AND NECK PAIN TECHNIQUE: Axial non-contrast CT scan of the brain was performed from the skull base to the high parietal region. One of the following dose reduction techniques were utilized for this exam: Automated exposure control, adjustment of the mA and/or kV according to patient size, use of iterative reconstruction. COMPARISON: This examination has been compared with prior CT dated 02/05/2023. FINDINGS: Brain Parenchyma: Mild diffuse hypodensity in the periventricular deep white matter bilaterally. Tiny hypodensity is identified in left external capsule Normal attenuation of the cerebellum, and brainstem. No evidence of acute infarct, hemorrhage, or mass effect. Small hypodensity is identified in the inferior aspect of the basal ganglia bilaterally Atherosclerotic changes seen bilaterally in internal carotid and vertebral arteries Ventricular System: Ventricles are normal in size and configuration. No evidence of hydrocephalus or ventricular enlargement. Cavum septum pellucidum seen which is a normal variant Subarachnoid Spaces: Normal sulci and cisterns. No evidence of subarachnoid hemorrhage or extra-axial fluid collections. Cerebellum and Brainstem: Normal size and signal. No masses, lesions, or areas of abnormal density Orbits: Normal appearance of the globes, optic nerves, and extraocular muscles. No evidence of orbital masses or abnormal density. Sinuses: Clear paranasal sinuses. No evidence of sinusitis or mucosal thickening. Mild deviation of the nasal septum towards the left side. Mastoid Air Cells: Clear mastoid air cells. No evidence of mastoiditis. Skull and Meninges: Hyperostosis frontalis interna seen IMPRESSION: 1. No evidence of acute intracranial hemorrhage, gross territorial infarction or mass-effect. 2. Mild periventricular deep white matter ischemic changes. 3. Small hypodensity is identified in inferior aspect of the basal ganglia bilaterally, likely prominent virchow daria spaces/lacunar infarcts. 4. Tiny hypodensity in left external capsule, likely lacunar infarct 5. Redemonstration of interval stable hyperostosis frontalis interna. 6. No other significant change since last examination Electronically signed by Shanae Johnson 09-25-2024 12:52 AM
--- NOTE | 2024-09-25 00:59 | CT Scan Report ---
EXAM: CT cervical spine wo con CLINICAL HISTORY: HEADACHE AND NECK PAIN TECHNIQUE: CT scan of the cervical spine was performed without the administration of intravenous contrast. Contiguous axial images were obtained from the skull base to the upper thoracic spine. Coronal and sagittal reformatted images were also reviewed. One of the following dose reduction techniques was utilized for this exam. Automated exposure control, adjustment of the mA and/or kV according to patient size, and use of iterative reconstruction. COMPARISON: No previous studies are available for comparison. FINDINGS: Vertebrae: Straightening of cervical curvature is identified Degenerative changes are identified in cervical spine with osteophytes The vertebral bodies are normal in height and alignment. No evidence of acute fracture or dislocation. The cortical and trabecular bone patterns are normal. Subtle lucent areas are seen, in cervical vertebral bodies at multiple levels Normal configuration of the posterior elements. Intervertebral Discs: Reduced intervertebral disc space at C5-C6 and C6-C7 No calcifications or ossifications noted within the discs. Multilevel disc osteophyte complexes are identified marked at C5-C6 and C6-C7 Facet Joints: Facet arthropathy seen at multiple levels Additional Findings: Suggestion of ossification of posterior longitudinal ligament along C6 IMPRESSION: 1. Straightening of cervical curvature most likely due to paraspinal muscle spasm. 2. No evidence of acute fracture 3. Multilevel disc osteophyte complexes more marked, at C5-C6 and C6-C7. MRI cervical spine may be obtained for further evaluation. 4. Subtle lucent areas, in cervical vertebral bodies at multiple levels, likely due to osteopenia 5. Cervical spondylosis Electronically signed by Shanae Johnson 09-25-2024 12:57 AM
[2024-09-25 01:02] LABS: Thyroid Stimulating Hormone 5.06 uIu/ml (0.300-4.500)
[2024-09-25] MEDS ORDERED: CARBOHYDRATES FOR HYPOGLYCEMIA PO PRN (01:15)
[2024-09-25] MEDS ORDERED: DEXTROSE 50% 50 ML SYRINGE IV PRN (01:15)
[2024-09-25] MEDS ORDERED: GLUCAGON FOR INJ 1 MG VIAL SQ PRN (01:15)
[2024-09-25] MEDS ORDERED: GLUCOSE 10 TAB/TUBE PO PRN (01:15)
[2024-09-25] MEDS ORDERED: GLUCOSE 40% GEL 15 GM TUBE PO PRN (01:15)
[2024-09-25 01:38] LABS: T4 Free Thyroxine 0.84 ng/dl (0.61-1.60)
[2024-09-25] MEDS: INSULIN ASPART PER UNIT CHARGE SC SCH (01:51)
[2024-09-25] MEDS: ACETAMINOPHEN 325 MG TAB PO STA (02:01)
[2024-09-25] MEDS: LORATADINE 10 MG TAB PO SCH (02:02)
[2024-09-25] MEDS: tiZANidine HCL 4 MG TABLET PO STA (02:03)
[2024-09-25] MEDS: NSS + 20MEQ KCL 20 MEQ/1,000 ML BAG IV ONE (02:05)
[2024-09-25] MEDS: LEVOTHYROXINE SODIUM 112 MCG TABLET PO SCH (05:39)
[2024-09-25] MEDS: ACETAMINOPHEN 325 MG TAB PO PRN (05:42)
[2024-09-25 05:55] LABS: Basophils # (auto) 0.07 K/uL (0.00-0.20); Basophils % (auto) 1.7 %; Eosinophils % (auto) 4.7 %; Hematocrit (blood only) 32.7 % (37.0-47.0); Hemoglobin 11.1 g/dl (12.0-16.0); Immature Granulocytes # (auto) 0.01 K/uL (0.01-0.20); Immature Granulocytes % (auto) 0.2 %; Lymphocytes % (auto) 40.3 %; Mean Corpuscular Hemoglobin 29.5 pg (25.0-34.0); Mean Corpuscular Hgb Conc 33.9 g/dL (32.0-36.0); Mean Platelet Volume 9.7 fL (9.4-12.4); Monocytes # (auto) 0.46 K/uL (0.11-0.59); Monocytes % (auto) 10.9 %; Neutrophils # (auto) 1.78 K/uL (1.40-6.50); Neutrophils % (auto) 42.2 %; Platelet Count 230 K/uL (130-400); RDW Coefficient of Variation 13.3 % (11.5-14.5); RDW Standard Deviation 41.9 fL (36.4-46.3); Red Blood Count 3.76 M/uL (4.20-5.40); White Blood Count 4.22 K/ul (4.8-10.8)
[2024-09-25 06:11] LABS: BUN Creatinine Ratio 21.7 (10-20); Calcium 8.9 mg/dl (8.6-10.3); Chol HDL Ratio 2.3 (0-5); Creatinine Clr Calc Pharmacy 113.2 ml/min; Potassium 3.9 mmol/L (3.5-5.1)
[2024-09-25 06:18] LABS: Troponin I High Sensitivity 3.3 pg/ml (0-14)
[2024-09-25 06:22] LABS: Partial Thromboplastin Time 26 Seconds (21-31)
--- NOTE | 2024-09-25 07:32 | XRay Report ---
EXAM: XR chest 1V not portable CLINICAL HISTORY: CHEST PAIN KFK TECHNIQUE: An X-ray image of the chest is obtained in 1 AP projection. COMPARISON: 02/11/2024 CR. FINDINGS: Pulmonary Parenchyma: Lungs are clear bilaterally. No evidence of consolidation, collapse, or focal opacities. No pulmonary nodules are identified. No evidence of pleural effusion or pleural thickening. Heart and Mediastinum: Limited evaluation of the cardiac size given an AP projection. No mediastinal widening or masses. No hilar or mediastinal lymphadenopathy. Bony Thorax: Bony thorax appears intact without fractures or deformities. Soft Tissues: Soft tissues overlying the chest wall are unremarkable. IMPRESSION: No acute pulmonary abnormalities are identified. No interval chnages. Electronically signed by Shanae Johnson 09-25-2024 07:32 AM
--- NOTE | 2024-09-25 08:30 | Cardiology Consultation ---
Date of Consultation September 25, 2024 Assessment & Plan (1) Chest pain: (2) Hypertension: (3) Old cerebrovascular accident (CVA) without late effect: Plan Patient admitted with CP and r/o ACS. Negative cardiac enzymes x3 EKG without ischemic changes. Echo with Normal LVEF at 55-60%, normal wall motion, no intraatrial shunt, nor valvular disease Given risk factors for CAD and intermittent chest pain, recommend ischemic work up with dobutamine stress echo. Patient has chronic knee pain, possible future knee replacement surgery and is not able to ambulate on a treadmill. She had a normal cath in 2017. She has been hypertensive since admission. May be contributing to prior headaches. Resume low dose losartan 25 mg daily. (Previously on 100 mg last year but stopped due to hypotension) Continue ASA and statin Lacunar infarct on head CT - old. No prior knowledge of CVA. Recommend outpatient ZIO monitor, r/o afib. Negative bubble study. No PFO. Further recommendations pending review of DSE Case discussed with Dr. Tatum I spent a total of 65 minutes on the date of service in preparation, delivery, and documentation of the care provided to this patient, excluding any time spent in the performance of separately billed services. Estee Manuel PA-C Department of Cardiology, [facility] This chart was completed in part utilizing Speech Voice Recognition Software. Grammatical errors, random word insertions, pronoun errors, and incomplete sentences are an occasional consequence of this system due to software limitations, ambient noise, and hardware issues. Any formal questions or concerns about the content, text, or information contained within the body of this dictation should be directly addressed to the provider for clarification. Supervising Physician Co-Signing Physician Notes Attending attestation: Case reviewed with the advanced practitioner. I have personally performed a history and physical examination on the patient. I have reviewed the advanced practitioner's documentation on the date of service referenced in note, and I agree with, and take responsibility for the plan of care. Negative serial troponin levels. Resting echocardiogram without resting wall motion abnormalities. Dobutamine stress echocardiogram negative for ischemia. Patient had previously been on losartan 100 mg daily but discontinued as blood pressure improved when she lost weight. Dating back to 2022 her blood pressure has been trending up. Recommend resuming losartan at a lower dose, 25 mg daily. Patient stable from a cardiac perspective for discharge. I spent a total of 20 minutes coordinating, documenting, and providing care for this patient excluding time spent in the performance of separately billed services or time spent by another provider. Vicente Tatum, History of Present Illness Reason for Consultation: Chest pain Requesting Physician: Eriberto Hospitalist Attending Physician: Dr. Tatum History of Present Illness Patient is a 64 year old female who presented to [facility] with complaints of chest pain. Symptoms started last evening when walking into [employer]. She describes the pain as a left sided heaviness with SOB. She went home and symptoms persisted, so she came to the ER for evaluation. CP improved in the ER with SL nitro. She had nitro paste placed which alleviated her symptoms. HS troponin x3 since admission. EKG demonstrating NSR without ischemic changes compared to outpatient EKG Over the last few weeks patient reports significant stressors with son and ill family members. She notes generalized weakness and fatigue. Not sleeping well. 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 She also reports intermittent headaches and neck pain. Her BP has been trending higher as well. She has been off all antihypertensive therapies (previously on losartan and metoprolol). At time of consult, patient reports vague left sided chest pain since nitro oint was removed. Due to headaches and neck pain, patient underwent CT of the head upon admission. She was found to have old lacunar infarct. NO prior knowledge of CVA. no history of atrial fibrillation. History includes: 1. Angiographically normal coronary arteries per cardiac catheterization in 2017, due to false-positive stress testing Normal nuclear stress 10/2020 2. Hypertension 3. KEELY, on BiPAP 4. Morbid obesity, status post gastrectomy 01/2021 5. Type 2 diabetes 6. Chronic ventricular ectopy 7. Single kidney, status post right nephrectomy, 9 months of age 8. Remote hx of PE approx 2011- on AC x 6 months. 9. Familial history of aortic valve disease, mother and brother Allergies Allergy/AdvReac Type Severity Reaction Status Date / Time diphenhydramine Allergy Severe Anaphylaxis Verified 02/11/24 02:17 nitrofurantoin Allergy Intermediate throat Verified 09/25/24 01:26 [From Macrobid] irritation and itch all over shellfish derived Allergy Intermediate SEAFOOD-RED/ITCH Verified 09/24/24 23:36 ALL OVER Home Medications Medication Instructions Recorded Confirmed Type lorazepam 0.5 mg tablet 0.5 mg PO BID PRN Anxiety 07/04/21 09/24/24 History allopurinol 100 mg tablet 200 mg PO QAM kidney stone 08/29/21 09/24/24 History prevention atorvastatin 20 mg tablet 20 mg PO 3XWK 08/29/21 09/24/24 History biotin 1 mg capsule 1 mg PO 3XWK 08/29/21 09/24/24 History levothyroxine 112 mcg tablet 112 mcg PO QAM 08/29/21 09/24/24 History multivitamin 1 tab PO QAM 08/29/21 09/24/24 History pantoprazole 40 mg tablet,delayed 40 mg PO BID 08/29/21 09/24/24 History release aspirin 81 mg tablet,delayed 162 mg PO QAM 09/14/23 09/24/24 History release gabapentin 300 mg capsule 300 mg PO HS 09/14/23 09/24/24 History ascorbic acid (vitamin C) 500 mg 500 mg PO QAM 02/11/24 09/24/24 History tablet (Vitamin C) cyanocobalamin (vitamin B-12) 500 500 mcg PO QAM 02/11/24 09/24/24 History mcg tablet (Vitamin B-12) cholecalciferol (vitamin D3) 25 25 mcg PO QAM 09/24/24 09/24/24 History mcg (1,000 unit) tablet (Vitamin D3) Patient History Medical History Sleep apnea cpap Solitary left kidney Hyperlipidemia Hypothyroidism Kidney stones Hypertension GERD (gastroesophageal reflux disease) Deep vein thrombosis ~2010, unknown reason, possibly r/t sedentary job. no problems since. Pulmonary embolism ~2010, unknown reason, possibly r/t sedentary. no problems since. Diabetes mellitus, type 2 hx -- no medications since gastric surgery Surgical History History of cataract surgery RT History of colonoscopy History of esophagogastroduodenoscopy (EGD) S/P cystoscopy with ureteral stent placement multiple S/P bilateral breast reduction History of cholecystectomy History of section H/O eye surgery left tear duct reattachment (as a child) Status post surgery right ureter removal H/O right nephrectomy (~1960) History of bladder surgery as an infant "removed a sac of pus" S/P gastric sleeve procedure sleeve gastrectomy Family History Other No family history of adverse response to anesthesia Social History Smoking Status: Former smoker Tobacco Type: Cigarettes Second Hand Exposure: No; Do You Dip or Chew Tobacco: No; Hx Alcohol Use: Yes Alcohol type: wine Hx Substance Use: No Preferred Language: Fijian Communication Ability: Effective 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 Beliefs That Will Affect Care: None Current Living Situation: Alone Feels Safe at Home: Yes Assistive Devices: CPAP and Glasses Review of Systems Review of Systems: All systems reviewed & are unremarkable except as noted in HPI & below Physical Exam Constitutional: WD/WN, vitals as above well developed; no acute distress Neck: normal visual inspection Respiratory: normal respiratory effort; no labored breathing Auscultation: lungs clear to auscultation bilaterally Cardiovascular: Rate/Rhythm: regular rate and regular rhythm Heart Sounds: + murmur (I/ systolic murmur) Vessels: no JVD Extremities: no edema Gastrointestinal (Abdomen): normal bowel sounds, soft, nontender, no hepatosplenomegaly Neurologic: PERRL, EOMI, accommodation nl, no face palsy, no dysarthria Psychiatric: A+Ox3, euthymic affect Results & Data Vital Signs (Past 12 Hours) Vital Signs Temp Pulse Pulse Pulse Resp BP BP 09/25/24 08:02 36.5 C 57 L 17 154/70 H 09/25/24 04:01 36.4 C L 52 L 16 125/71 09/25/24 03:05 66 09/25/24 01:15 36.5 C 62 18 139/81 09/25/24 00:45 67 17 121/60 09/24/24 23:33 63 17 136/67 09/24/24 22:20 77 20 146/67 H 09/24/24 21:09 61 17 09/24/24 21:09 09/24/24 21:08 65 20 146/72 H 09/24/24 21:08 Pulse Ox O2 Del Method 09/25/24 08:02 99 Room Air 09/25/24 04:01 98 CPAP 09/25/24 03:05 09/25/24 01:15 98 Room Air 09/25/24 00:45 97 Room Air 09/24/24 23:33 99 Room Air 09/24/24 22:20 98 Room Air 09/24/24 21:09 99 Room Air 09/24/24 21:09 99 Room Air 09/24/24 21:08 99 Room Air 09/24/24 21:08 99 Room Air Laboratory Results Cardiac Enzymes 09/24/24 09/25/24 09/25/24 Range/Units 20:30 00:15 05:30 AST 18 (13-39) U/L Troponin I High Sens 2.7 3.8 3.3 (0-14) pg/ml Coagulation 09/24/24 09/25/24 Range/Units 20:30 05:30 PT 10.3 (9.0-12.0) Seconds APTT 26 26 (21-31) Seconds Lipids 09/25/24 Range/Units 05:30 Triglycerides 83 (0-150) mg/dl Cholesterol 154 (0-200) mg/dl HDL Cholesterol 66 mg/dl Cholesterol/HDL Ratio 2.3 (0-5) CBC 09/24/24 09/25/24 Range/Units 20:30 05:30 WBC 5.28 4.22 L (4.8-10.8) K/ul RBC 4.31 3.76 L (4.20-5.40) M/uL Hgb 13.0 11.1 L (12.0-16.0) g/dl Hct 37.8 32.7 L (37.0-47.0) % Plt Count 288 230 (130-400) K/uL Neut # (Auto) 2.53 1.78 (1.40-6.50) K/uL Lymph # (Auto) 1.98 1.70 (1.20-3.40) K/uL [place] # (Auto) 0.51 0.46 (0.11-0.59) K/uL Eos # (Auto) 0.18 0.20 (0.00-0.50) K/uL Baso # (Auto) 0.07 0.07 (0.00-0.20) K/uL Comprehensive Metabolic Panel 09/24/24 09/25/24 Range/Units 20:30 05:30 Sodium 138 140 (136-145) mmol/L Potassium 3.4 L 3.9 (3.5-5.1) mmol/L Chloride 101 106 (98-107) mmol/L Carbon Dioxide 29 29 (21-32) mmol/L BUN 17 15 (6-23) mg/dl Creatinine 0.73 0.69 (0.6-1.2) mg/dl Glucose 86 88 (70-99(Fasting)) mg/dl Calcium 9.8 8.9 (8.6-10.3) mg/dl AST 18 (13-39) U/L ALT 12 (7-52) U/L Alkaline Phosphatase 71 (34-104) U/L Total Protein 7.6 (6.0-8.3) gm/dl Albumin 4.8 (3.4-5.0) gm/dl Intake and Output 09/24/24 09/25/24 09/25/24 22:59 06:59 14:59 Intake Total 85.833 / 85.833 Balance 85.833 / 85.833 Intake: IV 85.833 / 85.833 D5nss + 20Meq KCl 20 meq In 1, 85.833 / 85.833 000 ml @ 50 mls/hr IV .Q20H STA Rx#:[id number] Other: Other Intake Source NPO # Unmeasured Voids 2 Weight 121.9 kg 122.4 kg Weight Measurement Method Chair Scale Standing Scale Diagnostic Findings Telemetry reviewed: NSR, no arrhythmias Echo report reviewed from 09/25/24: Mild LVH LV systolic is normal EF 55-60% LV wall motion is normal No significant valvular disease No PFO EKG reviewed from admission 09/24/24: NSR LAD incomplete RBBB possible old anterolateral infarct Compared with prior outpatient EKG in Sep 2023, no significant changes noted Repeat EKG reviewed from 09/25/2024: Sinus bradycardia Low voltage QRS incomplete RBBB old anterior infarct Carotid duplex report reviewed: IMPRESSION: 1. There is no sonographic evidence of hemodynamically significant stenosis in the right or left carotid arterial system. 2. Antegrade flow is shown in the vertebral arteries. Chest X-Ray 09/24/24 20:18 IMPRESSION: No acute pulmonary abnormalities are identified. No interval changes Head CT 09/24/24 23:26 IMPRESSION: 1. No evidence of acute intracranial hemorrhage, gross territorial infarction or mass-effect. 2. Mild periventricular deep white matter ischemic changes. 3. Small hypodensity is identified in inferior aspect of the basal ganglia bilaterally, likely prominent virchow daria spaces/lacunar infarcts. 4. Tiny hypodensity in left external capsule, likely lacunar infarct 5. Redemonstration of interval stable hyperostosis frontalis interna. 6. No other significant change since last examination Electronically signed by Shanae Johnson 09-25-2024 12:52 AM Echo report reviewed dated December 2023: Interpretation Summary The examination is adequate to evaluate the referral indication. The LV wall thickness is normal. The left ventricular wall motion is normal. The left ventricular diastolic function is mildly abnormal (grade I). Mild aortic valve sclerosis is present. Aortic stenosis is absent. The qualitative LV ejection fraction is 60-64% (normal). Compared to the previous study dated 12/29/2022, there has been no significant interval change. Medications Administered Current Inpatient Medications Acetaminophen (Acetaminophen 325 Mg Tab) 650 mg PO QID PRN PRN Reason: pain/fever Stop: 10/25/24 01:40 Last Admin: 09/25/24 05:42 Dose: 650 mg Allopurinol (Allopurinol 100 Mg Tab) 200 mg PO QAM JAKE Stop: 10/25/24 08:59 Aspirin (Aspirin 81 Mg Ectab) 162 mg PO QAM JAKE Stop: 10/25/24 08:59 Atorvastatin Calcium (Atorvastatin 20 Mg Tab) 20 mg PO MoWeFr JAKE Stop: 10/26/24 20:59 Dextrose (Dextrose 50% 50 Ml Syringe) 25 - 50 ml IV UD PRN; Protocol PRN Reason: Hypoglycemia Protocol Stop: 10/25/24 01:14 Enoxaparin Sodium (Enoxaparin Inj 40 Mg/0.4 Ml Syr) 40 mg SQ QAM JAEK Stop: 10/25/24 08:59 Gabapentin (Gabapentin 300 Mg Cap) 300 mg PO HS JAKE Stop: 10/25/24 20:59 Glucagon (Glucagon For Inj 1 Mg Vial) 1 mg SQ UD PRN; Protocol PRN Reason: Hypoglycemia Protocol Stop: 10/25/24 01:14 Glucose (Glucose 40% Gel 15 Gm Tube) 15 - 30 gm PO UD PRN; Protocol PRN Reason: Hypoglycemia Protocol Stop: 10/25/24 01:14 Glucose (Glucose 10 Tab/Tube) 4 - 8 tab PO UD PRN; Protocol PRN Reason: Hypoglycemia Protocol Stop: 10/25/24 01:14 Promethazine HCl (Phenergan) 12.5 mg in 50.5 mls @ 202 mls/hr IV Q6H PRN PRN Reason: Nausea And Vomiting Stop: 10/24/24 23:25 Potassium Chloride/Sodium Chloride (Normal Saline W/20 Meq Kcl) 20 meq in 1,000 mls @ 60 mls/hr IV .[id number] ONE Stop: 09/25/24 18:54 Last Admin: 09/25/24 02:05 Dose: 60 mls/hr Insulin Aspart (Insulin Aspart Per Unit Charge) 0 units SC Q6 [facility] Stop: 10/25/24 01:14 Last Admin: 09/25/24 06:01 Dose: Not Given Levothyroxine Sodium (Levothyroxine Sodium 112 Mcg Tablet) 112 mcg PO DAILYBB [facility] Stop: 10/25/24 06:29 Last Admin: 09/25/24 05:39 Dose: 112 mcg Loratadine (Loratadine 10 Mg Tab) 10 mg PO HS [facility] Stop: 10/25/24 01:44 Last Admin: 09/25/24 02:02 Dose: 10 mg Lorazepam (Lorazepam 0.5 Mg Tab) 0.5 mg PO TID PRN PRN Reason: Anxiety Stop: 10/24/24 23:25 Losartan Potassium (Losartan Potassium 25 Mg Tab) 25 mg PO QAM [facility] Stop: 10/26/24 08:59 Miscellaneous (Carbohydrates For Hypoglycemia ) 15 - 30 gm PO UD PRN PRN Reason: Hypoglycemia Protocol Stop: 10/25/24 01:14 Morphine Sulfate (Morphine Sulfate 4 Mg/Ml 1 Ml Carp\\Vial) 4 mg IV Q4H PRN PRN Reason: Pain Stop: 10/08/24 23:25 [facility]ivit[facility] ([facility]amin Tab) [facility] [place] Stop: 10/25/24 08:59 Nitroglycerin (Nitroglycerin Sl 0.4 Mg/Tab Tab) 0.4 mg SL Q5M PRN PRN Reason: Chest Pain Stop: 10/24/24 23:32 Oxycodone HCl (Oxycodone Hcl Ir 5 Mg Tab (Immediate Release)) 5 mg PO Q4H PRN PRN Reason: Pain Stop: 10/08/24 23:25 Pantoprazole Sodium (Pantoprazole 40 Mg Tab) 40 mg PO BID JAKE Stop: 10/25/24 08:59
--- NOTE | 2024-09-25 08:47 | Electrocardiogram Report ---
Test Reason : Blood Pressure : */* mmHG Vent. Rate : 60 BPM Atrial Rate : 60 BPM P-R Int : 206 ms QRS Dur : 104 ms QT Int : 420 ms P-R-T Axes : 50 -33 14 degrees QTcB Int : 420 ms Normal sinus rhythm Left atrial enlargement Left anterior fascicular block Incomplete right bundle branch block Old Anterolateral infarct (cited on or before 21-Jul-2017) Abnormal ECG When compared with ECG of 11-Feb-2024 01:04, No significant change was found Confirmed by Rishi Espinoza ([id number]) on 09/25/2024 8:47:11 AM Referred By: REFERRED SELF Confirmed By: Rishi Espinoza
--- NOTE | 2024-09-25 09:12 | Ultrasound Report ---
ULTRASOUND OF THE CAROTID ARTERIES CLINICAL HISTORY: cva on ct TECHNIQUE: Real-time, grayscale, and color Doppler sonography of the bilateral carotid arteries is pe rformed. Images are reviewed in the transverse and longitudinal planes. COMPARISON: None available at the time of this dictation. FINDINGS: The carotid arteries are patent bilaterally and demonstrate antegrade flow. There is no atherosclerot ic plaque on the right and no atherosclerotic plaque on the left. Normal doppler arterial waveforms a re seen throughout. Velocity measurements are listed below. Common carotid peak systolic velocity (cm/sec): RIGHT: 75 LEFT: 69 ICA peak systolic velocity (cm/sec): RIGHT: 75 LEFT: 88 ICA/CC peak systolic ratio: RIGHT: 1.0 LEFT: 1.3 Antegrade flow was shown in the vertebral arteries. The external carotid arteries are patent. IMPRESSION: 1. There is no sonographic evidence of hemodynamically significant stenosis in the right or left car otid arterial system. 2. Antegrade flow is shown in the vertebral arteries. Society of Radiologists in Ultrasound consensus guidelines: Normal: ICA PSV is <125 cm/sec and no plaque or intimal thickening is visible sonographically additional criteria include ICA/CCA PSV ratio <2.0 and ICA EDV <40 cm/sec <50% ICA stenosis: ICA PSV is <125 cm/sec and plaque or intimal thickening is visible sonographically additional criteria include ICA/CCA PSV ratio <2.0 and ICA EDV <40 cm/sec 50-69% ICA stenosis: ICA PSV is 125-230 cm/sec and plaque is visible sonographically additional criteria include ICA/CCA PSV ratio of 2.0-4.0 and ICA EDV of 40-100 cm/sec ?70% ICA stenosis but less than near occlusion: ICA PSV is >230 cm/sec and visible plaque and luminal narrowing are seen at polanco-scale and color Dopp ler ultrasound (the higher the Doppler parameters lie above the threshold of 230 cm/sec, the greater the likelihood of severe disease) additional criteria include ICA/CCA PSV ratio >4 and ICA EDV >100 cm/sec ACT 112: Negative or not required by law. Electronically signed by: Kofi Greene M.D. 09/25/2024 9:11 AM
[2024-09-25 09:47] LABS: Estimated Average Glucose 108 mg/dl; Hemoglobin A1C 5.4 % (4.5-5.6)
[2024-09-25] MEDS ORDERED: DOBUTamine HCL 12.5 MG/ML 20 ML VIAL IV ONE (11:03)
[2024-09-25] MEDS ORDERED: ATROPINE SULFATE 0.1 MG/ML 10ML SYR IV ONE (11:03)
[2024-09-25] MEDS ORDERED: METOPROLOL TARTRATE 1 MG/ML VIAL IV ONE (11:03)
[2024-09-25] MEDS: allopurinoL 100 MG TAB PO SCH (12:13)
[2024-09-25] MEDS: ASPIRIN 81 MG ECTAB PO SCH (12:13)
[2024-09-25] MEDS: ENOXAPARIN INJ 40 MG/0.4 ML SYR SQ SCH (12:14)
[2024-09-25] MEDS: MULTIVITAMIN TAB PO SCH (12:14)
[2024-09-25] MEDS: PANTOprazole 40 MG TAB PO SCH (12:14)
--- NOTE | 2024-09-25 12:37 | Electrocardiogram Report ---
Test Reason : Blood Pressure : */* mmHG Vent. Rate : 52 BPM Atrial Rate : 52 BPM P-R Int : 202 ms QRS Dur : 108 ms QT Int : 458 ms P-R-T Axes : 58 -10 46 degrees QTcB Int : 425 ms Sinus bradycardia Low voltage QRS Incomplete right bundle branch block Old Anterior infarct (cited on or before 21-Jul-2017) Abnormal ECG When compared with ECG of 24-Sep-2024 20:21, No significant change Confirmed by Rishi Espinoza ([id number]) on 09/25/2024 12:37:43 PM Referred By: REFERRED SELF Confirmed By: Rishi Espinoza
[2024-09-25 15:18] VITALS: RESP 17; TEMP 98.2; O2SAT 96
--- NOTE | 2024-09-25 15:36 | Discharge Summary ---
Date of Service September 25, 2024 Admission HPI Per Admitting Provider History obtained from patient, family, and records. Medical history significant for hypertension, hyperlipidemia, history PVCs, PE/DVT status post Coumadin, KEELY on BiPAP, history gastric bypass, history renal agenesis/duplicated ureter status post nephrectomy as per records, DM2 diet- controlled, hypothyroidism, GERD, gout, past tobacco abuse. Patient achy headache, neck pain symptoms the last few weeks. Tired more than usual. Denies depression. Admits to personal stressors. Denies inordinate OTC NSAID intake. Compliant with home medications. No recollection of trauma, no arm or leg weakness. 3 days ago, patient noted intermittent left-sided chest pain going to the neck and arm with some SOB. Discomfort relieved by nitroglycerin at the ER. Medical History as above Surgical History : section, cholecystectomy, nephrectomy, breast reduction, sleeve gastrectomy Family History : Dementia, aortic stenosis, DM Personal/Social history : Past tobacco abuse, no EtOH intake, [facility] Admission Exam Per Admitting Provider GENERAL: Comfortable, slightly anxious, morbidly obese, pleasant, no respiratory distress SKIN: Normal color, warm HEENT: Bespectacled, [place] palpebral conjunctivae, no ptosis, moist buccal mucosa NECK : Supple, minimal posterior cervical tenderness CHEST : CTA, no tenderness HEART : RRR, no obvious murmurs ABDOMEN: Some distention, nontender EXTREMITIES : Minimal LE swelling, no LE tenderness, no other conspicuous deformities noted NEUROLOGIC : Coherent, no facial asymmetry, no other gross focality Principal Diagnosis Hypertension Chest pain rule out ACS Old CVA Discharge Exam GENERAL: Comfortable, morbidly obese, pleasant, no respiratory distress SKIN: Normal color, warm HEENT: Bespectacled, [place] palpebral conjunctivae, no ptosis, moist buccal mucosa NECK : Supple, minimal posterior cervical tenderness CHEST : CTA, no tenderness HEART : RRR, no obvious murmurs ABDOMEN: No distention, nontender EXTREMITIES : Minimal LE swelling, no LE tenderness, no other conspicuous deformities noted NEUROLOGIC : Coherent, no facial asymmetry, no other gross focality, power 5/5 in all limbs. Discharge Data Allergies Allergy/AdvReac Type Severity Reaction Status Date / Time diphenhydramine Allergy Severe Anaphylaxis Verified 02/11/24 02:17 nitrofurantoin Allergy Intermediate throat Verified 09/25/24 01:26 [From Macrobid] irritation and itch all over shellfish derived Allergy Intermediate SEAFOOD-RED/ITCH Verified 09/24/24 23:36 ALL OVER Consultations 09/24/24 21:46 ED Decision to Admit Stat 09/25/24 01:15 Consult Cardiology Routine Ordered Studies 09/24/24 23:26 CT cervical spine wo con Stat CT head/brain wo con Stat 09/25/24 06:00 Carotid duplex [US carotid doppler BI] Routine Hospital Course (1) Chest pain: per prior attending with addendum: Chest pain rule out ACS given nitroglycerin relief Patient has risk factors for ischemic heart disease Lacunar infarct on CT head Patient denies prior history of strokes. 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 until patient seen by cardiology in anticipation of ischemic workup Carotid Dopplers and TTE for stroke workup given CT head findings Update lipid profile Recheck TSH outpatient next month Replace potassium ISS BG goal 1 10-1 40 DVT prophylaxis. Lovenox subcu Full code Patient son requesting updates providers. Mr. Rufus Shafer, contact #[phone]. Addendum 09/25/2024: Patient was seen and examined at bedside as a follow-up of chest pain rule out ACS/hypertension/old lacunar stroke. Patient underwent stress test, negative for inducible ischemia. Cardiology evaluated, patient started on losartan. Patient was made aware of old lacunar stroke, patient denies any numbness or tingling or any focal weakness of the limbs. Carotid Doppler with no sonographic evidence of hemodynamically significant stenosis in the right or left carotid arterial system. Echo with EF of 55 to 60%, interatrial septum intact. Patient stated that she went back to 20 mg atorvastatin every other day because of concern of calf pain but she is not very sure if the pain was due to the medication, patient is willing to try 20 mg atorvastatin daily for now with a goal to uptitrate to 40 mg daily if she tolerates the statin. Patient has been made aware to coordinate with PCP office for ongoing evaluation/management. Patient has been made aware to follow-up with neurology at least once after discharge, she voiced understanding. Patient's son Rufus was also given a phone call, update him and went over the below instructions with him. Patient is being discharged with following instruction at the point of discharge: Follow-up with your primary care physician within a week time and likely you will need labs CBC/CMP/magnesium/phosphorus. Cardiology evaluated you for your chest pain, you underwent stress test which came back negative. You have been started on losartan at 25 Mg daily. Follow- up with cardiology as an outpatient. You will benefit from outpatient Zio patch monitoring to rule out afib, coordinate with your cardiology office or primary care office to set up the test. As discussed at the bedside, in inpatient head scan you were noted to have old stroke. Take your atorvastatin 20 mg daily instead of 3 times a week and see if it can be uptitrated to 40 mg daily, continue to follow-up with PCP office for continued monitoring/evaluation. Recommend that you visit with neurology at least once after discharge, coordinate with your PCP office to set up the referral. Take your medications as prescribed. Please make sure that you are able to get your medications today by calling your pharmacy before you leave the hospital so that your treatment continuity is not broken. Text document was generated using [employer] voice recognition software. It may contain grammatical or spelling errors. Kindly contact undersigned for clarification of any documentation item in question. Home Health Attestation I certify that this patient is under my care and that I, or a physicians criminal legal assistant working with me, had a face to-face encounter that meets the home health [id number] encounter requirements with this patient. The encounter with the patient was in whole, or in part, for the following medical condition, which is the primary reason for home health care (list medical condition): I certify that, based on my findings, the following services are medically necessary home health services: My clinical findings support the need for the above services because: Further, I certify that my clinical findings support that this patient is homebound (i.e. absences from home require considerable and taxing effort and are for medical reasons or taoist services or infrequently or of short duration when for other reasons) because: Certification for Home Health Services: Based on the above findings, I certify that this patient is confined to the home and needs intermittent alf care, physical therapy and/or speech therapy or continues to need occupational therapy. The patient is under my care, and I have initiated the establishment of the plan of care. This patient will be followed by a physician who will periodically review the plan of care. Total Time Total Time Spent Total Time Spent (In Minutes): 45 Discharge Plan Discharge Items Patient Disposition: Home - Self-Care Reason For Visit: CP Discharge Diagnosis: Incidental finding of old CVA Chest pain, rule out ACS Hypertension Condition on Discharge: Fair Activity: Resume your previous activity Non-emergency contact: Primary Care Provider Call non-emergency contact if: you have any medication questions and your symptoms worsen Follow-up/Referrals: Mine Beverly MD [Primary Care Provider] - Diet: Carb Consistent or DM2 and Heart Healthy Addtl Attending Provider Instructions: Follow-up with your primary care physician within a week time and likely you will need labs CBC/CMP/magnesium/phosphorus. Cardiology evaluated you for your chest pain, you underwent stress test which came back negative. You have been started on losartan at 25 Mg daily. Follow- up with cardiology as an outpatient. You will benefit from outpatient Zio patch monitoring to rule out afib, coordinate with your cardiology office or primary care office to set up the test. As discussed at the bedside, in inpatient head scan you were noted to have old stroke. Take your atorvastatin 20 mg daily instead of 3 times a week and see if it can be uptitrated to 40 mg daily, continue to follow-up with PCP office for continued monitoring/evaluation. Recommend that you visit with neurology at least once after discharge, coordinate with your PCP office to set up the referral. Take your medications as prescribed. Please make sure that you are able to get your medications today by calling your pharmacy before you leave the hospital so that your treatment continuity is not broken. Pending Studies at Discharge: No Stand-Alone Forms: [employer], Smoking Cessation Medications and DC Order Prescriptions: New losartan 25 mg Tablet 25 mg PO QAM Qty: 30 0RF Continued lorazepam 0.5 mg tablet 0.5 mg PO BID PRN (Reason: Anxiety) allopurinol 100 mg Tablet 200 mg PO QAM pantoprazole 40 mg Tablet,Delayed Release (Dr/Ec) 40 mg PO BID levothyroxine 112 mcg Tablet 112 mcg PO QAM multivitamin Tablet 1 tab PO QAM biotin 1 mg Capsule 1 mg PO [id number] Rx Instructions: TAKE SUNDAY,SUNDAY,SUNDAY MORNINGS aspirin [Aspir-Low] 81 mg Tablet,Delayed Release (Dr/Ec) 162 mg PO QAM gabapentin 300 mg capsule 300 mg PO HS cyanocobalamin (vitamin B-12) [Vitamin B-12] 500 mcg Tablet 500 mcg PO QAM ascorbic acid (vitamin C) [Vitamin C] 500 mg Tablet 500 mg PO QAM cholecalciferol (vitamin D3) [Vitamin D3] 25 mcg (1,000 unit) Tablet 25 mcg PO QAM Changed atorvastatin 20 mg Tablet 20 mg PO DAILY Qty: 30 0RF Rx Instructions: TAKE SUNDAY/SUNDAY/FRIDAYS AT BEDTIME Discharge Orders: Discharge Order (Routine); Ordered 09/25/24 Ordered By: Pearl Dumont Admission Data Admit Date/Time: 09/24/24 23:24 Attending Provider: Pearl Dumont Admit Provider: Antwan Macdonald Primary Care Provider: Mine Beverly Other Providers: Antwan Macdonald; Caroline Medina; Vicente Tatum; Todd Msos; Sam Villalobos; Aldo He; Mango Kenny; Estee Manuel; Argelia Lai; Teja Blanchard Ashley M.; Adis Arias; Timmy Suarez; Geno Birmingham; Zoe Correia; Sonia Farrar; Ashley Osullivan; Quan Fernandez; Fabi Tierney; Mila Stahl
--- NOTE | 2024-09-25 15:41 | Communication Note ---
Date of Service: September 25, 2024 Pt reassessed. Having musculoskeletal neck / shoulder pain. No angina. Unrelieved with Tylenol. OK to proceed with Toradol 10 mg IV x 1. OK for DC
[2024-09-25] MEDS: KETOROLAC TROMETHAMINE 15 MG/ML VIAL IV ONE (15:46)
[2024-09-25 16:14] VITALS: BP 154/70; PULSE 63
[2024-09-25] MEDS ORDERED: INSULIN ASPART PER UNIT CHARGE SC SCH (16:30)
[2024-09-25] MEDS ORDERED: GABAPENTIN 300 MG CAP PO SCH (21:00)
[2024-09-26] MEDS ORDERED: LOSARTAN POTASSIUM 25 MG TAB PO SCH (09:00)
--- OUTSIDE RECORDS SUMMARY | 2024-09-26 11:37 | External Medical Summary | Summary of Care ---
Author Name Unknown Organization [facility] Address [address] [place] [address] Phone [phone] Care Team Providers Care Lining Stitcher Name Role Phone Mine Beverly MD Primary Care Provid er Reason for Visit * Reason Comments Follow Up Neck pain Encounter Details Date Type Department Care Team (Late st Contact Info) Description 09/15/2024 5:40 PM EST Office Visit [facility] Evy Rich [address] [phone] Mine Beverly MD [address] [phone] Dysuria*; Need for pneumococcal vaccination; Cervicalgia Allergies Active Allergy Reactions Criticality Noted Date Comments Diphenhydramine Anaphylaxis High 03/12/2019 Nitrofurantoin Anaphylaxis,Itching High 08/12/2024 Shellfish-Derived Products High 2 anaphylaxis documented as of this encounter (statuses as of 09/15/2024) Medications Docusate Sodium 250 MG Oral Capsule Take 1 Capsule by mouth. Active Aspirin 81 MG Oral Tablet Delayed Release Take 2 Tablets by mouth in the morning. Active One-Daily Multi Vitamins Oral Tablet Take 1 Tablet by mouth. Active Vitamin D3 50 MCG (2000 UT) Oral Capsule Take 1 Capsule by mouth in the morning. Active Vitamin C 250 MG Oral Tablet (Ascorbic Acid) Take 1 Tablet by mouth in the morning. Active Vitamin B-12 1000 MCG Oral Tablet Take 0.5 Tablets by mouth in the morning. Active Biotin 10 MG Oral Capsule Take 1 Capsule by mouth every other day. Take 1 tab by mouth every other day Active Zinc 50 MG Oral Tablet Take 1 Tablet by mouth every other day. Take 1 Tab by mouth every other day. Active BiPAP every night at bedtime . Active Polyethylene Glycol 3350 17 GM Oral Packet Take 1 Packet by mouth as needed. Active Melatonin 5 MG Oral Capsule Take 1 Capsule by mouth at bedtime. Active Gabapentin 300 MG Oral Capsule (Neurontin)Indicat ions:Peripheral polyneuropathy TAKE 1 CAPSULE BY MOUTH AT BEDTIME 90 Capsule 3 01/21/20 24 Active EpiPen 2-Caleb 0.3 MG/0.3ML Injection Solution Auto-injectorIndic ations:Severe allergy, initial encounter For a severe reaction: Place orange end against the outer thigh, press firmly, hold in place for 10 seconds and go to the Emergency room. 2 Each 3 02/12/20 24 Active Allopurinol 100 MG Oral Tablet (Zyloprim)Indicati ons:H/O: gout TAKE TWO TABLETS BY MOUTH IN THE MORNING 180 Tablet 3 03/10/20 24 Active Levothyroxine Sodium 112 MCG Oral Tablet (Levoxyl)Indicatio ns:Acquired hypothyroidism Take 1 Tablet by mouth daily first thing in the morning. 30 min before other food or meds. 90 Tablet 05/13/20 24 Active Famotidine 20 MG Oral Tablet (Pepcid)Indication s:Rash and nonspecific skin eruption Take 1 Tablet by mouth in the morning and 1 Tablet before bedtime. 60 Tablet 5 05/15/20 24 Active Additional Information Patient taking differently:20 mg OralPRN, Reported on 09/15/2024 Loratadine 10 MG Oral Tablet (Claritin)Indicati ons:Rash and nonspecific skin eruption Take 1 Tablet by mouth in the morning and 1 Tablet before bedtime. 60 Tablet 3 06/22/20 24 Active LORazepam 0.5 MG Oral Tablet (Ativan)Indication s:Long-term current use of benzodiazepine,Anx iety Take 1 Tablet by mouth 2 times a day as needed for Anxiety. 60 Tablet 07/04/20 24 Active Atorvastatin Calcium 20 MG Oral Tablet (Lipitor)Indicatio ns:takes in the evening Take 1 Tablet by mouth every other day. 45 Tablet 1 07/04/20 24 Active Pantoprazole Sodium 40 MG Oral Tablet Delayed Release (Protonix)Indicati ons:Gastroesophage al reflux disease with esophagitis without hemorrhage Take 1 Tablet by mouth in the morning and 1 Tablet in the evening. 180 Tablet 3 07/04/20 24 Active documented as of this encounter (statuses as of 09/15/2024) Active Problems Problem Noted Date Diagnosed Date Single kidney 05/21/2023 Body mass index (BMI) of 40.0 to 44.9 in adult 0 03/26/2023 Overview: Per Obesity protocol Morbid obesity due to excess calories 02/09/2023 Diet-controlled type 2 diabetes mellitus 023 Severe allergy 04/30/2022 H/O unilateral nephrectomy 07/12/2021 H/O bariatric surgery 07/12/2021 Long-term current use of benzodiazepine 07/12/20 21 Chronic midline back pain 08/25/2020 Gait disturbance 08/25/2020 Primary osteoarthritis of both knees 09/08/2019 KEELY on CPAP Type 2 diabetes mellitus wit hout complication, without long-term current use of insulin Overview (07/12/2021): diet controlled since bariatric surgery Acquired hypothyroidism Other insomnia GERD (gastroesophageal reflux disease) Frequent PVCs documented as of this encounter (statuses as of 09/15/2024) Immunizations Name Administration Dates Next Due COVID-19 mRNA, LNP-s, No Pre serve, 2-Dose Series (Moderna) 11/09/2020,10/12/2020 COVID-19, MRNA-LNP, PF, 25 M CG/0.25 mL, 6MO-11YRS, IM (MODERNA) 07/29/2024 COVID-19, mRNA, LNP-s, PF, B ooster, 100mcg/0.5mg (Moderna) 03/22/2022,09/09/2021 Covid-19, Mrna, Lnp-s, Pf, B ivalent, 50 Mcg, IM, 12 yrs and above (Moderna) 08/09/2022 Pneumococcal Conjugate Vaccine, 20-valent (Prevn ar20) 09/15/2024 Seasonal Influenza Virus Vac cine, Unspecified Formulation 08/09/2022 Seasonal Influenza, Quadrivalent, No Preserve, I M 07/29/2024,08/09/2022 documented as of this encounter Social History Tobacco Use Types Packs/Day Years Used Date Smoking Tobacco: Former Cigarettes 1 5 0 10/15/1975 - 10/15/1980 Smokeless Tobacco: Never Tobacco Cessation:Counseling Given: Not Answered Alcohol Use Standard Drinks/Week Comments Never 0 (1 standard drink = 0.6 oz pur e alcohol) PHQ-2 Answer Date Recorded PHQ Adult Total Score 0 09/15/2024 Hunger Vital Sign Answer Date Recorded Within the past 12 months, y ou worried that your food would run out before you got the money to buy more. Never true 09/15/20 24 Within the past 12 months, t he food you bought just didn't last and you didn't have money to get more. Never true 09/15/2024 Childcare Answer Date Recorded Do you feel overwhelmed with taking care of a child, family member or friend? No 09/15/2024 Does your family need help f inding childcare? (Household - for ages 0-17 years) Not on file 09/15/2024 Clothing Answer Date Recorded Have you been unable to get clothing when it was really needed? No 09/15/2024 Is your family able to get c lothes or diapers when needed? (Household - for ages 0-17 years) Not on file 09/15/2024 Personal Safety Answer Date Recorded Do you feel unsafe or have concerns for your saf ety? No 09/15/2024 Do you have concerns for you r family's safety? (Household - for ages 0-17 years) Not on file 09/15/2024 Utilities Answer Date Recorded Do you have trouble paying y our heating, water, or electric bill? No 09/15/2024 Is your family able to pay t he heat, water, or electric bill? (Household - for ages 0-17 years) Not on file 09/15/2024 Does your family have access to good internet? (Household - for ages 0-17 years) Not on file 09/15/2024 Employment Status Answer Date Recorded Are you unemployed or without regular income? No 09/15/2024 Does the household have a re gular source of income? (Household - for ages 0-17 years) Not on file 09/15/2024 Social Connections Answer Date Recorded How often do you feel lonely or isolated from th ose around you? Never 09/15/2024 Financial Resource Strain Answer Date R ecorded Do you have any trouble payi ng for your medications, or do you think you might in the future? No 09/15/2024 Does your family have troubl e paying for medicine? (Household - for ages 0-17 years) Not on file 09/15/2024 Transportation Needs Answer Date Record ed Do you have trouble getting a ride to medical visits or work? (Adult - for ages 18 years and over) Not on file 09/15/2024 Does your family have a hard time getting a ride to doctors visits? (Household - for ages 0-17 years) Not on file 09/15/2024 Has lack of transportation k ept you from medical appointments, meetings, work, or from getting things needed for daily living? Check all that apply. No 09/15/2024 Do you (or your family) have trouble finding or paying for a ride (transportation)? (Household - for ages 0-17 years) Not on file 09/15/2024 Housing Stability Answer Date Recorded Do you currently live in a s helter or have no steady place to sleep at night? No 09/15/2024 Do you think you are at risk of becoming homeless? (Adult - for ages 18 years and over) Not on file 09/15/2024 Does your family worry about paying for your home or becoming homeless? (Household - for ages 0-17 years) Not on file 1 11/16/2023 Are you homeless or worried that you might be in the future? No 09/15/2024 Are you (or your family) davida eless or worried that you might be in the future? (Household - for ages 0-17 years) Not on file Food Insecurity Answer Date Recorded Do you need food for this week? No 09/15/2024 Are you able to get enough f ood for your family? (Household - for ages 0-17 years) Not on file 09/15/2024 Does your family need food t his week? (Household - for ages 0-17 years) Not on file 09/15/2024 Do you always have enough fo od for your family? (Household - for ages 0-17 years) Not on file 09/15/2024 Comments No Sex and Gender Information Value Date Recorded Sex Assigned at Female 05/19/2022 12:17 PM EDT Legal Sex Female 11:46 AM EDT Gender Identity Female 05/19/2022 12:17 PM EDT Sexual Orientation Straight 05/19/2022 12 :17 PM EDT Occupation Industry Job Start Date Job End Date RN Not on file Not on file Not on file documented as of this encounter Last Filed Vital Signs Vital Sign Reading Time Taken Comments Blood Pressure 122/76 09/15/2024 5:26 PM EST Pulse 62 09/15/2024 5:26 PM EST Temperature 36.3 C (97.3 F) 09/15/2024 5:26 PM ES T Respiratory Rate 18 09/15/2024 5:26 PM EST Oxygen Saturation 99% 09/15/2024 5:26 PM EST Inhaled Oxygen Concentration - - Weight 121.7 kg (268 lb 4.8 oz) 09/15/2024 5:26 PM EST Height 167.6 cm (5' 6") 09/15/2024 5:26 PM EST Body Mass Index 43.3 09/15/2024 5:26 PM EST documented in this encounter Progress Notes * Mine Beverly MD - 09/15/2024 5:59 PM EST ASSESSMENT / PLAN: Angy Shafer is a 64 year old female with PMHx h/o gastric sleeve 2020 / h/o unilateral nephrectomy in childhood / diet controlled T2DM / HTN / OA / PVCs on BB / hypothyroidism / GERD / peripheral neuropathy on gabapentin / KEELY on cpap - here for recheck Dysuria Resolved If recurs - she can message me and I will put in orders for UA and Vag panel Neck pain Related to stress Supportive care Other chronic conditions: #T2DM Remains well controlled on diet alone Last A1C 5.4 Recommend reduce BSG readings to morning/ fasting only Chronic arthritis Knee pain - sees Ortho - plan for surgery - has also gotten plastic surgery removal of excess tissue in prep for knee replacements Limits her physical activity Handicap placard processed today KEELY on CPAP Adherent Insomnia Melatonin and ativan prn #Obesity Weight is increasing somewhat, she is following with GI Nutrition. Did not tolerate ozempic #Epigastric pain Improved with protonix twice daily no longer on pepcid once daily Follows with gastro / s/p gastric bypass #Frequent PVCs Improved Cardiology dc'd BB #Asthma Mild Exacerbated by allergies Cont claritin (benadryl allergy) Add singulair Kidney stone prevention / single kidney Cont allopurinol Screenings/anticipatory guidance reviewed include if applicable nutrition, family planning/contraception, physical activity, healthy weight, injury prevention, misuse of tobacco, alcohol and drugs, sexual behavior and STDs, dental health, mental health, immunizations, age appropriate screenings: Paps with - [facility] - next appt in Oct - went well - annually Next colonoscopy 2032 (10 yr recall) Mammograms UTD - - Dysuria (Primary) Need for pneumococcal vaccination - PNEUMOCOCCAL VACC, PCV20, IM ([id number]) Cervicalgia If needed, prefers contact by: Ok to leave message on phone: SUBJECTIVE: Nursing Notes: Jesica Sims LPN 09/15/24 1543 Signed The patient has been properly identified by confirmation of name and date of . Chief Complaint Patient presents with Follow Up Neck pain Patient reports she is here for a follow up visit from telemedicine visit. Reports symptoms have resolved. Has been having increased pain in neck, arthritis pain in knees/hands HPI: Angy Shafer is a 64 year old female. Here for recheck. Dysuria has resolved Neck pain - she thinks is due to stressors She is trying to lose weight with more swimming Reviewed sources 1- Patient Active Problem List Diagnosis Chronic midline back pain Gait disturbance Primary osteoarthritis of both knees H/O unilateral nephrectomy H/O bariatric surgery KEELY on CPAP Type 2 diabetes mellitus without complication, without long-term current use of insulin ([facility]) Acquired hypothyroidism Other insomnia GERD (gastroesophageal reflux disease) Frequent PVCs Long-term current use of benzodiazepine Severe allergy Morbid obesity due to excess calories ([facility]) Diet-controlled type 2 diabetes mellitus ([facility]) Body mass index (BMI) of 40.0 to 44.9 in adult ([facility]) Single kidney Current Outpatient Medications Medication Sig Dispense Refill Docusate Sodium 250 MG Oral Capsule Take 1 Capsule by mouth. Aspirin 81 MG Oral Tablet Delayed Release Take 2 Tablets by mouth in the morning. One-Daily Multi Vitamins Oral Tablet Take 1 Tablet by mouth. Vitamin D3 50 MCG (1999 UT) Oral Capsule Take 1 Capsule by mouth in the morning. Vitamin C 250 MG Oral Tablet (Ascorbic Acid) Take 1 Tablet by mouth in the morning. Vitamin B-12 1000 MCG Oral Tablet Take 0.5 Tablets by mouth in the morning. Biotin 10 MG Oral Capsule Take 1 Capsule by mouth every other day. Take 1 tab by mouth every other day Zinc 50 MG Oral Tablet Take 1 Tablet by mouth every other day. Take 1 Tab by mouth every other day. BiPAP every night at bedtime . /16 Polyethylene Glycol 3350 17 GM Oral Packet Take 1 Packet by mouth as needed. Melatonin 5 MG Oral Capsule Take 1 Capsule by mouth at bedtime. Gabapentin 300 MG Oral Capsule (Neurontin) TAKE 1 CAPSULE BY MOUTH AT BEDTIME 90 Capsule 3 EpiPen 2-Caleb 0.3 MG/0.3ML Injection Solution Auto-injector For a severe reaction: Place orange end against the outer thigh, press firmly, hold in place for 10 seconds and go to the Emergency room. 2 Each 3 Allopurinol 100 MG Oral Tablet (Zyloprim) TAKE TWO TABLETS BY MOUTH IN THE MORNING 180 Tablet 3 Levothyroxine Sodium 112 MCG Oral Tablet (Levoxyl) Take 1 Tablet by mouth daily first thing in the morning. 30 min before other food or meds. 90 Tablet 0 Famotidine 20 MG Oral Tablet (Pepcid) Take 1 Tablet by mouth in the morning and 1 Tablet before bedtime. (Patient taking differently: Take 1 Tablet by mouth as needed.) 60 Tablet 5 Loratadine 10 MG Oral Tablet (Claritin) Take 1 Tablet by mouth in the morning and 1 Tablet before bedtime. 60 Tablet 3 LORazepam 0.5 MG Oral Tablet (Ativan) Take 1 Tablet by mouth 2 times a day as needed for Anxiety. 60 Tablet 0 Atorvastatin Calcium 20 MG Oral Tablet (Lipitor) Take 1 Tablet by mouth every other day. 45 Tablet 1 Pantoprazole Sodium 40 MG Oral Tablet Delayed Release (Protonix) Take 1 Tablet by mouth in the morning and 1 Tablet in the evening. 180 Tablet 3 No current facility-administered medications for this visit. OBJECTIVE: BP 122/76 | Pulse 62 | Temp 97.3 F (36.3 C) (Tympanic) | Resp 18 | Ht 5' 6" (1.676 m) | Wt 268 lb 4.8 oz (121.7 kg) | SpO2 99% | BMI 43.30 kg/m | BSA 2.38 m Vitals reviewed and is normotensive / afebrile / and not tachycardic General: No acute distress. Neuro: Alert Pleasant & interactive. Respiratory: Good inspiratory effort, no labored breathing. HEENT: Conjunctivae appear clear. No swelling noted face or lips. Skin: No rash visible on exposed skin areas, normal coloration & appears dry. Psych: Normal affect. Fluent speech. I spent a total of 20-29 minutes (exact time 20 mins) on the date of service in preparation, delivery, and documentation of the care provided to Angy Shafer excluding any time spent in the performance of separately billed services or time spent by another provider/QHP. Mine Beverly MD [facility], [address] [phone] There are no Patient Instructions on file for this visit. documented in this encounter Nursing Notes * Jesica Sims LPN - 09/15/2024 5:26 PM EST The patient has been properly identified by confirmation of name and date of . Chief Complaint Patient presents with Follow Up Neck pain Patient reports she is here for a follow up visit from telemedicine visit. Reports symptoms have resolved. Has been having increased pain in neck, arthritis pain in knees/hands documented in this encounter Plan of Treatment Upcoming Encounters Date Type Department Care Team (Late st Contact Info) Description 11/11/2024 2:00 PM EST Office Visit Nutrition & Weight Management, [facility] [address] [address] Celena Hogan PA-C [address] [address] 11/11/2024 3:10 PM EST Nutrition Services Nutrition & Weight Management, [facility] [address] [place] [address] Merissa Shankar RDN [address] [address] 01/01/2025 4:00 PM EDT Cardiac Studies Cardiac Studies, [facility] [address] [facility] [address] [place] [address] 01/14/2025 3:30 PM EDT Office Visit Cardiology, [facility] [address] [facility] [place] [address] Sonia Farrar CRNP [address] [place] [address] 02/27/2025 4:00 PM EDT [facility] [address] [facility] [phone] Mine Beverly MD [address] [facility] [place] [address] Scheduled Procedures Name Priority Associated Diagnoses Date/Ti me COLONOSCOPY FLEXIBLE PROXIMA L DIAGNOSTIC Recall Screening for colon cancer ROBOTIC ARTHROPLASTY KNEE TOTAL Knee osteoarthritis Health Maintenance Due Date Last Done Comments Pap Smear 1982 HPV/Co-Test 1991 Cologuard 2006 Fecal Occult Blood Test 2006 Sigmoidoscopy 2006 Zoster Vaccines (1 of 2) 2011 Mammogram 05/23/2024 05/23/2023, 05/16, 12/16/2019 Diabetic Foot Exam 08/14/2024 08/14/2023, 08/14/2022 COVID-19 Vaccine ( season) 2024 07/29/2024, 08/09/2022, 03/22/2022, Additional history exists Cervical Cancer Screening 10/18/2024 Po stponed from 1991 (Patient Declined After Education) DTap/Tdap Vaccines (1 - Tdap) 10/18/2024 Postponed from 1980 (Patient Declined After Education) Diabetic Eye Exam 10/18/2024 03/27/2023, , 02/07/2022, Additional history exists Postponed from 03/27/2024 (Unavailable) HIV Screening 10/18/2024 Postponed from 1976 (Patient Declined After Education) Hepatitis C Screening 10/18/2024 Postpo ana from 1979 (Patient Declined After Education) HbA1c 01/11/2025 07/14/2024, 03/15, 07/11/2023, Additional history exists Albumin/Creatinine Ratio 03/24/2025 024, 01/30/2023, 01/02/2022 TSH 03/24/2025 03/24/2024, 01/13, 01/02/2022 GFR 07/14/2025 07/14/2024, 06/16, 05/21/2023, Additional history exists Depression Screening 09/15/2025 09/15/2024 Lipid Panel 07/14/2029 07/14/2024, 06/16, 07/07/2022, Additional history exists Colonoscopy 07/06/2033 07/06/2023, 07/06/2023 Colorectal Cancer Screening 07/06/2033 Influenza Vaccine (FLU shot) Completed 07/29/2024, 08/09/2023, 08/09/2022, Additional history exists Pneumococcal Vaccine: Pediatrics (0 to 5 Years) and At-Risk Patients (6 to 64 Years) Completed 09/15/2024 HPV (Gardasil) Vaccine Aged Out No lo nger eligible based on patient's age to complete this topic Hepatitis B Vaccine Aged Out No longe r eligible based on patient's age to complete this topic MENINGOCOCCAL (MENACTRA/MENVEO) Aged Out No longer eligible based on patient's age to complete this topic documented as of this encounter Medical Devices Not on filedocumented as of this encounter Visit Diagnoses Diagnosis Dysuria- Primary Need for pneumococcal vaccination Need for prophylactic vaccination against streptococcus pneumoniae (pneumococcus) Cervicalgia documented in this encounter Care Teams Lining Stitcher Relationship Specialty Start Date End Date Mine Beverly MD [address] [id number] PCP - General Family Medicine 07/12/21 documented as of this encounter
--- OUTSIDE RECORDS SUMMARY | 2024-09-26 11:37 | External Medical Summary | Summary of Care ---
Author Name Unknown Organization [facility] Address [address] [place] [address] Phone [phone] Care Team Providers Care Interventional Physician Name Role Phone Mine Beverly MD Primary Care Provid er Reason for Visit * Reason Onset Date Comments Medication Problem 08/12/2024 Side effects Encounter Details Date Type Department Care Team (Late st Contact Info) Description 08/12/2024 Telephone Family Practice [facility] [address] [place] [address] Cesar Anderson DO [address] [place] [id number] Medication Problem (Side effects) Allergies Active Allergy Reactions Criticality Noted Date Comments Diphenhydramine Anaphylaxis High 03/12/2019 Nitrofurantoin Anaphylaxis,Itching High 08/12/2024 Shellfish-Derived Products High 2 anaphylaxis documented as of this encounter (statuses as of 08/22/2024) Medications Docusate Sodium 250 MG Oral Capsule [...] Patient taking differently:20 mg OralPRN, Reported on 06/10/2024 Loratadine 10 MG Oral Tablet (Claritin)Indicati ons:Rash [...] evening. 180 Tablet 3 07/04/20 24 Active Nitrofurantoin Monohyd Macro 100 MG Oral Capsule (Macrobid)Indicati ons:Dysuria Take 1 Capsule by mouth in the morning and 1 Capsule before bedtime. Do all this for 7 days. With food until gone. 14 Capsule 08/11/20 24 024 documented as of this encounter (statuses as of 08/22/2024) Active Problems Problem Noted Date Diagnosed Date [...] as of this encounter (statuses as of 08/22/2024) Immunizations Name Administration Dates Next Due COVID-19 mRNA, LNP-s, No Pre serve, 2-Dose Series (Moderna) 11/09/2020,10/12/2020 COVID-19, mRNA, LNP-s, PF, B ooster, 100mcg/0.5mg (Moderna) 03/22/2022,09/09/2021 Covid-19, Mrna, Lnp-s, Pf, B ivalent, 50 Mcg, IM, 12 yrs and above (Moderna) 08/09/2022 Seasonal Influenza Virus Vac cine, Unspecified Formulation 08/09/2022 Seasonal Influenza, Quadrivalent, No Preserve, I M 08/09/2022 documented as of this encounter Social History Tobacco Use Types Packs/Day Years Used Date Smoking Tobacco: Former Cigarettes 1 5 0 10/15/1975 - 10/15/1980 Smokeless Tobacco: Never Alcohol Use Standard Drinks/Week Comments Never 0 (1 standard drink = 0.6 oz pur e alcohol) PHQ-2 Answer Date Recorded PHQ Adult Total Score 0 05/19/2022 Hunger Vital Sign Answer Date Recorded Within the past 12 months, y ou worried that your food would run out before you got the money to buy more. Never true 05/19/20 22 Within the past 12 months, t he food you bought just didn't last and you didn't have money to get more. Never true 05/19/2022 Comments No Sex and Gender Information Value Date Recorded Sex Assigned at Female 05/19/2022 12:17 PM EDT Legal Sex Female 11:46 AM EDT Gender Identity Female 05/19/2022 12:17 PM EDT Sexual Orientation Straight 05/19/2022 12 :17 PM EDT Occupation Industry Job Start Date Job End Date RN Not on file Not on file Not on file documented as of this encounter Miscellaneous Notes * Telephone Encounter - Cat Chavez OSA - 08/22/2024 12:05 PM EST Patient scheduled for Sep 15 appt. * Telephone Encounter - Cesar Anderson DO - 08/12/2024 1:58 PM EDT Should be seen in person With PCP/PCP office if possible UA is not suggestive of UTI * Telephone Encounter - Ana Desir [facility] - 08/12/2024 9:21 AM EDT Patient was experiencing itching since started on the Macrobid. Also reports her throat was feelingitchy and swollen. Patient has an allergy to Benadryl. Has epipen at home. Took one dose of Macrobid last night at 5pm. She thinks she remembers now that she has had a problem with Macrobid in the past. Has not taken the medication since then. She took a claritin and famotidine and is feeling better today. Added Macrobid to allergy list based off these symptoms. Patient still does feel malaise. Doesn't usually have pain and burning, but has frequency/urgency and overall not feeling well. Please advise how patient should proceed. As of time note is written, urine culture is not back yet. Thank you, Ana Desir, PharmD Clinical Pharmacist [facility] ([facility]) 08/12/24 9:24 AM [phone] * Telephone Encounter - Phylicia Ibanez CPhT - 08/12/2024 9:15 AM EDT Patient called in with side effects from Nitrofurantoin Monohyd Macro 100 MG Oral Capsule (Macrobid) . Warm transferred to Ana for consultation. Thank you, Phylicia Ibanez CPhT Battery Service Technician III [facility] ([facility]) 08/12/2024, 9:16 AM documented in this encounter Plan of Treatment Upcoming Encounters Date Type Department Care Team (Late st Contact Info) Description 09/15/2024 5:40 PM EST Office Visit [facility] [address] [facility] [address] Mine [facility] [address] [facility] [address] 11/11/2024 2:00 PM EST Office Visit Nutrition & Weight Management, [facility] [address] [place] [address] Celena Hogan PA-C [address] [place] [place] [address] 11/11/2024 2:50 PM EST Nutrition Services Nutrition & Weight Management, [facility] [address] [facility] [place] [address] Merissa Shankar RDN [address] [place] [address] 01/01/2025 4:00 PM EDT Cardiac Studies Cardiac Studies, [facility] [address] [facility] [place] [address] 01/14/2025 3:30 PM EDT Office Visit Cardiology, [facility] [address] [facility] [place] [address] Sonia Farrar CRNP [address] [place] [address] 02/27/2025 4:00 PM EDT Office Visit Family [facility] [address] [place] [address] Mine Beverly MD [address] [place] [address] Scheduled Procedures Name Priority Associated Diagnoses Date/Ti me COLONOSCOPY FLEXIBLE PROXIMA L DIAGNOSTIC Recall Screening for colon cancer ROBOTIC ARTHROPLASTY KNEE TOTAL Knee osteoarthritis Health Maintenance Due Date Last Done Comments Pneumococcal Vaccine: Pediatrics (0 to 5 Years) and At-Risk Patients (6 to 64 Years) (1 of 2 - PCV) 1967 HIV Screening 1976 Hepatitis C Screening 1979 DTap/Tdap Vaccines (1 - Tdap) 1980 Pap Smear 1982 Cervical Cancer Screening 1991 HPV/Co-Test 1991 Cologuard 2006 Fecal Occult Blood Test 2006 Sigmoidoscopy 2006 Zoster Vaccines (1 of 2) 2011 Depression Screening 05/19/2023 05/19/2022 Diabetic Eye Exam 03/27/2024 03/27/2023, , 02/07/2022, Additional history exists Mammogram 05/23/2024 05/23/2023, 05/16, 12/16/2019 COVID-19 Vaccine ( season) 2024 08/09/2022, 03/22/2022, 09/09/2021, Additional history exists Influenza Vaccine (FLU shot) (#1) 2024 08/09/2023, 08/09/2022, 08/09/2022 Diabetic Foot Exam 08/14/2024 08/14/2023, 08/14/2022 HbA1c 01/11/2025 07/14/2024, 03/15, 07/11/2023, Additional history exists Albumin/Creatinine Ratio 03/24/2025 024, 01/30/2023, 01/02/2022 TSH 03/24/2025 03/24/2024, 01/13, 01/02/2022 GFR 07/14/2025 07/14/2024, 06/16, 05/21/2023, Additional history exists Lipid Panel 07/14/2029 07/14/2024, 06/16, 07/07/2022, Additional history exists Colonoscopy 07/06/2033 07/06/2023, 07/06/2023 Colorectal Cancer Screening 07/06/2033 HPV (Gardasil) Vaccine Aged Out No lo nger eligible based on patient's age to complete this topic Hepatitis B Vaccine Aged Out No longe r eligible based on patient's age to complete this topic MENINGOCOCCAL (MENACTRA/MENVEO) Aged Out No longer eligible based on patient's age to complete this topic documented as of this encounter Medical Devices Not on filedocumented as of this encounter Care Teams Interventional Physician Relationship Specialty Start Date End Date Mine Beverly MD [address] [place] [address] PCP - General Family Medicine 07/12/21 documented as of this encounter
--- OUTSIDE RECORDS SUMMARY | 2024-09-26 11:38 | External Medical Summary | Summary of Care ---
Author Name Unknown Organization [facility] Address [address] [place] [address] Phone [phone] Care Team Providers Care Revenue Field Auditor Name Role Phone Mine Beverly MD Primary Care Provid er Reason for Visit * Reason Onset Date Comments Urinary Tract Infection Symptoms 08/11/2024 Encounter Details Date Type Department Care Team (Late st Contact Info) Description 08/11/2024 Telephone [facility] [address] [place] [phone] Mine Beverly MD [address] [place] [address] Urinary Tract Infection Symptoms Allergies Active Allergy Reactions Criticality Noted Date Comments Diphenhydramine Anaphylaxis High 03/12/2019 Shellfish-Derived Products High 2 anaphylaxis documented as of this encounter (statuses as of 08/12/2024) Medications Medication Sig Dispensed Refills Start Date End Date Status Docusate Sodium 250 MG Oral Capsule Take [...] bedtime. Active Gabapentin 300 MG Oral Capsule (Neurontin)Indicatio ns:Peripheral polyneuropathy TAKE 1 CAPSULE BY MOUTH AT BEDTIME 90 Capsule 3 01/21/2024 Active EpiPen 2-Caleb 0.3 MG/0.3ML Injection Solution Auto-injectorIndicat ions:Severe allergy, initial encounter For a severe reaction: Place orange end against the outer thigh, press firmly, hold in place for 10 seconds and go to the Emergency room. 2 Each 3 02/12/2024 Active Allopurinol 100 MG Oral Tablet (Zyloprim)Indication s:H/O: gout TAKE TWO TABLETS BY MOUTH IN THE MORNING 180 Tablet 3 03/10/2024 Active Levothyroxine Sodium 112 MCG Oral Tablet (Levoxyl)Indications :Acquired hypothyroidism Take 1 Tablet by mouth daily first thing in the morning. 30 min before other food or meds. 90 Tablet 05/13/2024 Active Famotidine 20 MG Oral Tablet (Pepcid)Indications: Rash and nonspecific skin eruption Take 1 Tablet by mouth in the morning and 1 Tablet before bedtime. 60 Tablet 5 05/15/2024 Active Additional Information Patient taking differently:20 mg OralPRN, Reported on 06/10/2024 Loratadine 10 MG Oral Tablet (Claritin)Indication s:Rash and nonspecific skin eruption Take 1 Tablet by mouth in the morning and 1 Tablet before bedtime. 60 Tablet 3 06/22/2024 Active LORazepam 0.5 MG Oral Tablet (Ativan)Indications: Long-term current use of benzodiazepine,Anxie ty Take 1 Tablet by mouth 2 times a day as needed for Anxiety. 60 Tablet 07/04/2024 Active Atorvastatin Calcium 20 MG Oral Tablet (Lipitor)Indications :takes in the evening Take 1 Tablet by mouth every other day. 45 Tablet 1 07/04/2024 Active Pantoprazole Sodium 40 MG Oral Tablet Delayed Release (Protonix)Indication s:Gastroesophageal reflux disease with esophagitis without hemorrhage Take 1 Tablet by mouth in the morning and 1 Tablet in the evening. 180 Tablet 3 07/04/2024 Active documented as of this encounter (statuses as of 08/12/2024) Active Problems Problem Noted Date Diagnosed Date [...] complication, without long-term current use of insulin Overview: diet controlled since bariatric surgery Acquired hypothyroidism Other insomnia GERD (gastroesophageal reflux disease) Frequent PVCs documented as of this encounter (statuses as of 08/12/2024) Immunizations Name Administration Dates Next Due COVID-19 [...] money to get more. Never true 05/19/2022 Sex and Gender Information Value Date Recorded Sex Assigned at Female 05/19/2022 12:17 PM EDT Gender Identity Female 05/19/2022 12:17 PM EDT Sexual Orientation Straight 05/19/2022 12 :17 PM EDT Job Start Date Occupation Industry Not on file Not on file Not on file documented as of this encounter Miscellaneous Notes * Telephone Encounter - Angela Vaz LPN - 08/12/2024 9:10 AM EDT Sent MyG message to patient regarding message from provider. * Telephone Encounter - Cesar Anderson DO - 08/12/2024 9:05 AM EDT Unlikely to be UTI given clear urine But can follow culture out Advise f/u in clinic with Dr Beverly to explore reasons for dysuria in the absence of UTI - her last few cultures have been negative * Telephone Encounter - Corrina John LPN - 08/11/2024 1:37 PM EDT Urine orders signed for UA and Urine Culture. Pt notified. * Telephone Encounter - Phylicia Hylton LPN - 08/11/2024 1:30 PM EDT Patient calling in to check on the status of urine order. She wants to be able to go prior to the appt as she does not think that she will be able to go after her video visit. Spoke with Jody in office, she is sending message high priority and sending a teams message to be addressed. * Telephone Encounter - Marcela Purvis LPN - 08/11/2024 9:44 AM EDT UTI Symptoms Review Patient is an Adult Female ages 18-65: yes Patient called to c/o of dysuria, frequency or urgency: yes Chief Complaint: Dysuria: no Frequency: yes Urgency: yes Symptoms above greater than 7 days: no- 2-3 days Focus Questions: Temperature greater than 101 degrees F: no- Low grade fever Flank Pain (mid-back, severe, new occurring with onset of these symptoms): no Blood in Urine: no Nausea: yes Vomiting: no Abdominal Pain: no History of Urinary Tract Infections: yes Greater than or equal to 4 UTI's within last 12 months: yes Have you completed a course of antibiotics for a UTI within the past 28 days: no History: Recent onset of/or change in vaginal discharge, odor, itching or painful sexual intercourse: yes- odor Contact with a partner infected with an STD: no Currently : no Renal Calculi (kidney stones) or structural urologic abnormalities: no Acute Pyelonephritis within last 3 months: no Urinary Tract Catheterization (or other urologic procedure or instrumentation within last 2 weeks):no Discharge from hospital or jail within last 2 weeks: no Are you a diabetic: yes Immunosuppressed (taking steroids, chemotherapy): no [id number] Results for orders placed or performed in visit on 08/15/23 CULTURE, URINE, QUANTITATIVE Specimen: Urine, Clean Catch Result Value Ref Range Culture Growth No significant growth Requested Video Visit. Refused urgent care Scheduled today at 3:20 with for Video visit. Request UA C& S orders prior to appt. Will go to [facility]. Please call her back if orders signed. Please advice documented in this encounter Plan of Treatment Upcoming Encounters Date Type Department Care Team (Late st Contact Info) Description 11/11/2024 2:00 PM EST Office Visit Nutrition & Weight Management, [address] [place] [address] Celena Hogan PA-C [address] [facility] [place] [address] 11/11/2024 2:50 PM EST Nutrition Services Nutrition & Weight Management, [facility] [address] [place] [address] Merissa Shankar, RUFINA [address] [facility] [address] 01/01/2025 4:00 PM EDT Cardiac Studies Cardiac Studies, [facility] [address] [place] [address] 01/14/2025 3:30 PM EDT Office Visit Cardiology, [facility] [address] [place] [address] Sonia Farrar CRNP [address] [facility] [place] [address] 02/27/2025 4:00 PM EDT Office Visit [place] [address] [place] [phone] Mine Beverly MD [address] [place] [address] Scheduled Orders Name Type Priority Associated Diagnoses Orde r Schedule URINALYSIS, REFLEX TO MICROSCOPIC Lab Routine Dysuria Expected: 08/11/2024, Expires: 08/11/2025 Scheduled Procedures Name Priority Associated Diagnoses Date/Ti [...] 03/24/2025 024, 01/30/2023, 01/02/2022 TSH 03/24/2025 03/24/2024, 0405/2023, 01/02/2022 GFR 07/14/2025 07/14/2024, 06/16, 05/21/2023, Additional [...] this encounter Visit Diagnoses Diagnosis Dysuria- Primary documented in this encounter Care Teams Revenue Field Auditor Relationship Specialty Start Date End Date Mine Beverly MD [address] [place] [address] PCP - General Family Medicine 07/12/21 documented as of this encounter
--- OUTSIDE RECORDS SUMMARY | 2024-09-26 11:38 | External Medical Summary | Summary of Care ---
Author Name Unknown Organization [facility] Address [address] [place] [address] Phone [phone] Care Team Providers Care Front Tender Name Role Phone Mine Beverly MD Primary Care Provid er Reason for Visit * Reason Onset Date Comments Medication Problem 08/12/2024 Side effects Encounter Details Date Type Department Care Team (Late st Contact Info) Description 08/12/2024 Telephone Family Practice [facility] [address] [place] [address] Cesar Anderson DO [address] [place] [phone] Medication Problem (Side effects) Allergies Active Allergy [...] the evening. 180 Tablet 3 07/04/2024 Active Nitrofurantoin Monohyd Macro 100 MG Oral Capsule (Macrobid)Indication s:Dysuria Take 1 Capsule by mouth in the morning and 1 Capsule before bedtime. Do all this for 7 days. With food until gone. 14 Capsule 08/11/2024 4 Active documented as of this encounter (statuses [...] encounter Miscellaneous Notes * Telephone Encounter - Cesar Anderson DO - 08/12/2024 1:58 PM EDT Should be seen in person With PCP/PCP office if possible UA is not suggestive of UTI * Telephone Encounter - Ana Desir, [facility] - 08/12/2024 9:21 AM EDT Patient was [...] Clinical Pharmacy Services ([facility]) 08/12/24 9:24 AM [phone] Electronically signed by Ana Desir [facility] at 08/12/2024 9:28 AM EDT * Telephone Encounter - Phylicia Ibanez CPhT - 08/12/2024 9:15 AM EDT Patient called in with side effects from Nitrofurantoin Monohyd Macro 100 MG Oral Capsule (Macrobid) . Warm transferred to Ana for consultation. Thank you, Phylicia Ibanez CPhT Manganese Heater III [facility] ([facility]) 08/12/2024, 9:16 AM documented in this encounter Plan of Treatment Upcoming Encounters Date Type Department Care Team (Late st Contact Info) Description 11/11/2024 2:00 PM EST Office Visit Nutrition & Weight Management, [facility] [place] [address] Celena Hogan PA-C [address] [place] [address] 11/11/2024 2:50 PM EST Nutrition Services Nutrition & Weight Management, [facility] [address] [place] [address] Merissa Shankar RDN [address] [place] [address] 01/01/2025 4:00 PM EDT Cardiac Studies Cardiac Studies, [facility] [address] [facility] [place] [address] 01/14/2025 3:30 PM EDT Office Visit Cardiology, [facility] [address] [place] [address] Sonia Farrar CRNP [address] [place] [address] 02/27/2025 4:00 PM EDT Office Visit [facility] [address] [facility] [address] Mine Beverly MD [address] [facility] [place] [id number] Scheduled Procedures Name Priority Associated Diagnoses Date/Ti [...] filedocumented as of this encounter Care Teams Front Tender Relationship Specialty Start Date End Date Mine Beverly MD [address] [facility] [address] PCP - General Family Medicine 07/12/21 documented as of this encounter
--- OUTSIDE RECORDS SUMMARY | 2024-09-26 11:38 | External Medical Summary | Summary of Care ---
Author Name Unknown Organization [facility] Address [address] [place] [address] Phone [phone] Care Team Providers Care Load Out Person Name Role Phone Meaghan Dominguez MD Primary Care Provid er Reason for Visit * Reason Onset Date Comments Urinary Tract Infection Symptoms 08/11/2024 Encounter Details Date Type Department Care Team (Late st Contact Info) Description 08/11/2024 Telephone [facility] [address] [place] [phone] Meaghan Dominguez MD [address] [place] [address] Urinary Tract Infection Symptoms Allergies Active Allergy Reactions Criticality Noted Date Comments Diphenhydramine Anaphylaxis High 03/12/2019 Nitrofurantoin Anaphylaxis,Itching High 08/12/2024 Shellfish-Derived Products High anaphylaxis documented as of this encounter (statuses [...] as of this encounter Miscellaneous Notes * Addendum Note - Meaghan Dominguez MD - 08/12/2024 1:16 PM EDTAddended by: MEAGHAN DOMINGUEZ on: 08/12/2024 01:16 PM Modules accepted: Orders * Telephone Encounter - Angela Vaz LPN - 08/12/2024 9:10 AM EDT Sent Digly message to patient regarding message from provider. * Telephone Encounter - Cesar Anderson DO - 08/12/2024 9:05 AM EDT Unlikely to be UTI given clear urine But can follow culture out Advise f/u in clinic with Dr Dominguez to explore reasons for dysuria in the [...] last 2 weeks):no Discharge from hospital or halfway within last 2 weeks: no Are you a diabetic: yes Immunosuppressed (taking steroids, chemotherapy): no [id number] [address] [facility] Results for orders placed or performed in visit on 08/15/23 CULTURE, URINE, QUANTITATIVE Specimen: Urine, Clean Catch Result Value Ref Range Culture Growth No significant growth Requested Video Visit. Refused urgent care Scheduled today at 3:20 with for Video visit. Request UA C& S orders prior to appt. Will go to [facility]. Please call her back if orders signed. Please advice documented in this encounter Plan of Treatment Upcoming Encounters Date Type Department Care Team (Late st Contact Info) Description 11/11/2024 2:00 PM EST Office Visit Nutrition & Weight Management, [facility] [address] [facility] [place] [address] Celena Hogan PA-C 132 [facility] [place] [address] 11/11/2024 2:50 PM EST Nutrition Services Nutrition & Weight Management, [facility] [address] [facility] [place] [address] Merissa Shankar RDN [address] [facility] [address] 01/01/2025 4:00 PM EDT Cardiac Studies Cardiac Studies, [facility] [address] [facility] [place] [address] 01/14/2025 3:30 PM EDT Office Visit Cardiology, [facility] [address] [facility] [place] [address] Sonia Farrar CRNP [address] [facility] [place] [address] 02/27/2025 4:00 PM EDT Office Visit Family [facility] [address] [place] [phone] Meaghan Dominguez MD [address] [place] [address] Scheduled Orders Name Type Priority Associated Diagnoses Orde r Schedule URINALYSIS, REFLEX TO MICROSCOPIC Lab Routine Dysuria Expected: 08/11/2024, Expires: 08/11/2025 VAGINOSIS PANEL, PCR Lab Routine Dysuria Expected: 08/12/2024, Expires: 08/12/2025 Scheduled Procedures Name Priority Associated Diagnoses Date/Ti [...] Primary documented in this encounter Care Teams Load Out Person Relationship Specialty Start Date End Date Meaghan Dominguez MD [address] [place] [address] PCP - General Family Medicine 07/12/21 documented as of this encounter
--- OUTSIDE RECORDS SUMMARY | 2024-09-26 11:38 | External Medical Summary | Summary of Care ---
Author Name Unknown Organization [facility] Address [address] [place] [address] Phone [phone] Care Team Providers Care Manufacturing Area Manager Name Role Phone Mine Beverly MD Primary Care Provid er Reason for Visit * Reason Onset Date Comments Medication Problem 08/12/2024 Side effects Encounter Details Date Type Department Care Team (Late st Contact Info) Description 08/12/2024 Telephone Family Practice [facility] [address] [place] [address] Cesar Anderson DO [address] [place] [id number] Medication Problem (Side effects) Allergies Active Allergy [...] encounter Miscellaneous Notes * Telephone Encounter - Ana Desir [facility] - 08/12/2024 9:21 AM EDT Patient was [...] Clinical Pharmacy Services ([facility]) 08/12/24 9:24 AM [phone] * Telephone Encounter - Phylicia Ibanez CPhT - 08/12/2024 9:15 AM EDT Patient called in with side effects from Nitrofurantoin Monohyd Macro 100 MG Oral Capsule (Macrobid) . Warm transferred to Ana for consultation. Thank you, Phylicia Ibanez CPhT Boat Finisher III Centralized Clinical Pharmacy Services ([facility]) 08/12/2024, 9:16 AM documented in this encounter Plan of Treatment Upcoming Encounters Date Type Department Care Team (Late st Contact Info) Description 11/11/2024 2:00 PM EST Office Visit Nutrition & Weight Management, [facility] [address] [place] [address] Celena Hogan PA-C [address] [place] [address] 11/11/2024 2:50 PM EST Nutrition Services Nutrition & Weight Management, [facility] [address] [place] [address] Merissa Shankar RDN [address] [place] [address] 01/01/2025 4:00 PM EDT Cardiac Studies Cardiac Studies, [facility] [address] [place] [address] 01/14/2025 3:30 PM EDT Office Visit Cardiology, [facility] [place] [address] Sonia Farrar CRNP [address] [place] [address] 02/27/2025 4:00 PM EDT Office Visit [place] [address] [facility] [address] Mine Beverly MD [address] [place] [address] Scheduled Procedures Name Priority Associated Diagnoses Date/Ti [...] filedocumented as of this encounter Care Teams Manufacturing Area Manager Relationship Specialty Start Date End Date Mine Beverly MD [address] [place] [facility] [place] [address] PCP - General Family Medicine 07/12/21 documented as of this encounter
--- OUTSIDE RECORDS SUMMARY | 2024-09-26 11:38 | External Medical Summary | Summary of Care ---
Author Name Unknown Organization [facility] Address [address] [place] [address] Phone [phone] Care Team Providers Care Customer Service Trainer Name Role Phone Mine Beverly MD Primary Care Provid er Reason for Visit * Reason Onset Date Comments Medication Problem 08/12/2024 Side effects Encounter Details Date Type Department Care Team (Late st Contact Info) Description 08/12/2024 Telephone Family Practice [facility] [address] [place] [address] Cesar Anderson DO [address] [place] [phone] Medication Problem (Side effects) Allergies Active Allergy [...] Notes * Telephone Encounter - Ana Desir [facility] - 08/12/2024 9:21 AM EDT Patient was [...] Clinical Pharmacy Services ([facility]) 08/12/24 9:24 AM [phone] * Telephone Encounter - Phylicia Ibanez CPhT - 08/12/2024 9:15 AM EDT Patient called in with side effects from Nitrofurantoin Monohyd Macro 100 MG Oral Capsule (Macrobid) . Warm transferred to Ana for consultation. Thank you, Phylicia Ibanez CPhT Oil Well Service Operator Helper III Centralized [facility] Pharmacy Services ([facility]) 08/12/2024, 9:16 AM documented in this encounter Plan of Treatment Upcoming Encounters Date Type Department Care Team (Late st Contact Info) Description 11/11/2024 2:00 PM EST Office Visit Nutrition & Weight Management, [facility] [address] [place] [address] Celena Hogan PA-C [address] [place] [address] 11/11/2024 2:50 PM EST Nutrition Services Nutrition & Weight Management, [facility] [address] [place] [address] Merissa Shankar RDN [address] [place] [address] 01/01/2025 4:00 PM EDT Cardiac Studies Cardiac Studies, [facility] [address] [place] [address] 01/14/2025 3:30 PM EDT Office Visit Cardiology, [facility] [place] [address] Sonia Farrar CRNP [address] [place] [address] 02/27/2025 4:00 PM EDT Office Visit [place] [address] [facility] [phone] Mine Beverly MD [address] [place] [address] Scheduled Procedures Name Priority Associated Diagnoses Date/Ti [...] filedocumented as of this encounter Care Teams Customer Service Trainer Relationship Specialty Start Date End Date Mine Beverly MD [address] [facility] [place] [address] PCP - General Family Medicine 07/12/21 documented as of this encounter
--- OUTSIDE RECORDS SUMMARY | 2024-09-26 11:38 | External Medical Summary | Summary of Care ---
Author Name Unknown Organization [facility] Address [address] [place] [address] Phone [phone] Care Team Providers Care Certified Driver Examiner Name Role Phone Mine Beverly MD Primary Care Provid er Reason for Visit * Reason Comments Outpatient Testing Encounter Details Date Type Department Care Team (Late st Contact Info) Description 08/11/2024 3:40 PM EDT Laboratory Laboratory, [facility] [address] [place] [phone] [facility] [address], [place] [phone] Dysuria Allergies Active Allergy Reactions Criticality Noted Date Comments Diphenhydramine Anaphylaxis High 03/12/2019 Shellfish-Derived Products High 2 anaphylaxis documented as of this encounter (statuses as of 08/11/2024) Medications Medication Sig Dispensed Refills Start Date [...] as of this encounter (statuses as of 08/11/2024) Active Problems Problem Noted Date Diagnosed Date [...] as of this encounter (statuses as of 08/11/2024) Immunizations Name Administration Dates Next Due COVID-19 [...] on file documented as of this encounter Plan of Treatment Upcoming Encounters Date Type Department Care Team (Late st Contact Info) Description 11/11/2024 2:00 PM EST Office Visit Nutrition & Weight Management, [facility] [address] [place] [address] Celena Hogan PA-C [address] [place] [address] 11/11/2024 2:50 PM EST Nutrition Services Nutrition & Weight Management, [facility] [address] [place] [address] Merissa Shankar RDN [address] [place] [address] 01/01/2025 4:00 PM EDT Cardiac Studies Cardiac Studies, [facility] [address] [place] [address] 01/14/2025 3:30 PM EDT Office Visit Cardiology, [facility] [address] [place] [address] Sonia Farrar CRNP [address] [place] [address] 02/27/2025 4:00 PM EDT [address] [address] Mine Lunsford MD [address] [place] [address] Pending Results Name Type Priority Associated Diagnoses Date /Time CULTURE, URINE, QUANTITATIVE Lab Routine Dysuria 08/11/2024 3:12 PM EDT URINALYSIS WITH MICROSCOPIC EXAM Lab Routine Dysuria 08/11/2024 3:12 PM EDT Scheduled Procedures Name Priority Associated Diagnoses Date/Ti [...] as of this encounter Visit Diagnoses Diagnosis Dysuria documented in this encounter Care Teams Certified Driver Examiner Relationship Specialty Start Date End Date Mine Beverly MD [address] [place] [address] PCP - General Family Medicine 07/12/21 documented as of this encounter
--- OUTSIDE RECORDS SUMMARY | 2024-09-26 11:38 | External Medical Summary | Summary of Care ---
Author Name Unknown Organization [facility] Address [address] [place] [address] Phone [phone] Care Team Providers Care Casting Molder Name Role Phone Mine Beverly MD Primary Care Provid er Reason for Visit * Reason Onset Date Comments Test Results 08/12/2024 Encounter Details Date Type Department Care Team (Late st Contact Info) Description 08/12/2024 Telephone Family Practice [facility] [address] [facility] [place] [address] Corrina John LPN Test Results Allergies Active Allergy Reactions Criticality Noted Date [...] encounter Miscellaneous Notes * Telephone Encounter - Corrina John LPN - 08/12/2024 1:53 PM EDT Contacted pt by phone to discuss information per Dr. Anderson on 08/11/24 and 08/12/24 TE. Also, discussed with pt as per [employer] G message per Dr. Beverly of information for vaginal culture order. Pt is aware of information. documented in this encounter Plan of Treatment Upcoming Encounters Date Type Department Care Team (Late st Contact Info) Description 11/11/2024 2:00 PM EST Office Visit Nutrition & Weight Management, [facility] [address] [place] [address] Celena Hogan PA-C [address] [place] [address] 11/11/2024 2:50 PM EST Nutrition Services Nutrition & Weight Management, [facility] [address] [place] [address] Merissa Shankar RDN [address] [place] [address] 01/01/2025 4:00 PM EDT Cardiac Studies Cardiac Studies, [facility] [address] [facility] [place] [address] 01/14/2025 3:30 PM EDT Office Visit Cardiology, [facility] [address] [facility] [place] [address] Sonia Farrar CRNP [address] [place] [address] 02/27/2025 4:00 PM EDT Office Visit [facility] [address] [place] [address] Mine Beverly MD [address] [place] [address] Scheduled Procedures Name Priority Associated Diagnoses Date/Ti [...] filedocumented as of this encounter Care Teams Casting Molder Relationship Specialty Start Date End Date Mine Beverly MD [address] [place] [address] PCP - General Family Medicine 07/12/21 documented as of this encounter
--- OUTSIDE RECORDS SUMMARY | 2024-09-26 11:38 | External Medical Summary | Summary of Care ---
Author Name Unknown Organization [facility] Address [address] [place] [address] Phone [phone] Care Team Providers Care Rectangular Tank Cooper Name Role Phone Mine Beverly MD Primary Care Provid er Reason for Visit * Reason Onset Date Comments Urinary Tract Infection Symptoms 08/11/2024 Encounter Details Date Type Department Care Team (Late st Contact Info) Description 08/11/2024 Telephone [facility] [address] [place] [phone] Mine Beverly MD [address] [place] [address] Urinary Tract Infection Symptoms Allergies [...] yes Immunosuppressed (taking steroids, chemotherapy): no E [id number] Results for orders placed or performed in visit on 08/15/23 CULTURE, URINE, QUANTITATIVE Specimen: Urine, Clean Catch Result Value Ref Range Culture Growth No significant growth Requested Video Visit. Refused urgent care Scheduled today at 3:20 with for Video visit. Request UA C& S orders prior to appt. Will go to [facility]. Please call her back if orders signed. Please advice documented in this encounter Plan of Treatment Upcoming Encounters Date Type Department Care Team (Late st Contact Info) Description 11/11/2024 2:00 PM EST Office Visit Nutrition & Weight Management, [address] [place] [address] Celena Hogan PA-C [address] [place] [address] 11/11/2024 2:50 PM EST Nutrition Services Nutrition & Weight Management, [facility] [address] [place] [address] Merissa Shankar, RUFINA 132 [place] [address] 01/01/2025 4:00 PM EDT Cardiac Studies Cardiac Studies, [facility] [address] [place] [address] 01/14/2025 3:30 PM EDT Office Visit Cardiology, [facility] [address] [place] [address] Sonia Farrar CRNP [address] [place] [address] 02/27/2025 4:00 PM EDT Office Visit [place] [address] [place] [phone] Mine Beverly MD [address] [place] [address] Scheduled Orders Name Type Priority Associated Diagnoses [...] Primary documented in this encounter Care Teams Rectangular Tank Cooper Relationship Specialty Start Date End Date Mine Beverly MD [address] [place] [address] PCP - General Family Medicine 07/12/21 documented as of this encounter
--- OUTSIDE RECORDS SUMMARY | 2024-09-26 11:38 | External Medical Summary | Summary of Care ---
Author Name Unknown Organization [facility] Address [address] [place] [address] Phone [phone] Care Team Providers Care Fisher Sponge Hooking Name Role Phone Mine Beverly MD Primary Care Provid er Encounter Details Date Type Department Care Team (Late st Contact Info) Description 08/13/2024 Orders Only PATIENT PORTAL DO NOT DELETE THIS DEPT USED BY [place] [address] Allergies Active Allergy Reactions Criticality Noted Date Comments Diphenhydramine Anaphylaxis High 03/12/2019 Nitrofurantoin Anaphylaxis,Itching High 08/12/2024 Shellfish-Derived Products High 2 anaphylaxis documented as of this encounter (statuses as of 08/13/2024) Medications Medication Sig Dispensed Refills Start Date [...] as of this encounter (statuses as of 08/13/2024) Active Problems Problem Noted Date Diagnosed Date [...] as of this encounter (statuses as of 08/13/2024) Immunizations Name Administration Dates Next Due COVID-19 [...] EST Office Visit Nutrition & Weight Management, [facility] [address] [place] [address] Celena Hogan PA-C [address] [place] [address] 11/11/2024 2:50 PM EST Nutrition Services Nutrition & Weight Management, [facility] [address] [place] [address] Merissa Shankar RDN [address] [place] [address] 01/01/2025 4:00 PM EDT Cardiac Studies Cardiac Studies, [facility] [address] [place] [address] 01/14/2025 3:30 PM EDT Office Visit Cardiology, [facility] [address] [place] [address] Sonia Farrar CRNP [address] [place] [address] 02/27/2025 4:00 PM EDT Office Visit [address] [place] [address] Mine Beverly MD [address] [facility] [place] [address] Scheduled Procedures Name Priority Associated Diagnoses Date/Ti [...] 03/15, 07/11/2023, Additional history exists Albumin/Creatinine Ratio 03/24/20252 024, 01/30/2023, 01/02/2022 TSH 03/24/2025 03/24/2024, 01/13, [...] filedocumented as of this encounter Care Teams Fisher Sponge Hooking Relationship Specialty Start Date End Date Mine Beverly MD [address] [place] [address] PCP - General Family Medicine 07/12/21 documented as of this encounter
--- OUTSIDE RECORDS SUMMARY | 2024-09-26 11:38 | External Medical Summary | Summary of Care ---
Author Name Unknown Organization [facility] Address [address] [place] [address] Phone [phone] Care Team Providers Care Slitter Service And Setter Name Role Phone Mine Beverly MD Primary Care Provid er Reason for Visit * Reason Onset Date Comments Medication Problem 08/12/2024 Side effects Encounter Details Date Type Department Care Team (Late st Contact Info) Description 08/12/2024 Telephone Family Practice [facility] [address] [place] [address] Cesar Anderson DO [address] [place] [phone] Medication Problem (Side effects) Allergies Active Allergy [...] UTI * Telephone Encounter - Ana Desir, [facility] - 08/12/2024 9:21 AM EDT Patient was [...] Clinical Pharmacy Services ([facility]) 08/12/24 9:24 AM [phone] * Telephone Encounter - Phylicia Ibanez CPhT - 08/12/2024 9:15 AM EDT Patient called in with side effects from Nitrofurantoin Monohyd Macro 100 MG Oral Capsule (Macrobid) . Warm transferred to Ana for consultation. Thank you, Phylicia Ibanez CPhT Lawn Mower Mechanic III Centralized Clinical Pharmacy Services ([facility]) 08/12/2024, 9:16 AM documented in this encounter Plan of Treatment Upcoming Encounters Date Type Department Care Team (Late st Contact Info) Description 11/11/2024 2:00 PM EST Office Visit Nutrition & Weight Management, [facility] [place] [address] Celena Hogan PA-C [address] [place] [address] 11/11/2024 2:50 PM EST Nutrition Services Nutrition & Weight Management, [facility] [address] [place] [address] Merissa Shankar RDN [address] [place] [address] 01/01/2025 4:00 PM EDT Cardiac Studies Cardiac Studies, [facility] [place] [address] 01/14/2025 3:30 PM EDT Office Visit Cardiology, [facility] [address] [place] [address] Sonia Farrar CRNP [address] [place] [address] 02/27/2025 4:00 PM EDT Office Visit [facility] [address] [facility] [address] Mine Beverly MD [address] [facility] [place] [phone] Scheduled Procedures Name Priority Associated Diagnoses Date/Ti [...] filedocumented as of this encounter Care Teams Slitter Service And Setter Relationship Specialty Start Date End Date Mine Beverly MD [address] [facility] [address] PCP - General Family Medicine 07/12/21 documented as of this encounter
--- OUTSIDE RECORDS SUMMARY | 2024-09-26 11:38 | External Medical Summary | Summary of Care ---
Author Name Unknown Organization [facility] Address [address] [place] [address] Phone [phone] Care Team Providers Care Laser Cutter Name Role Phone Mine Beverly MD Primary Care Provid er Encounter Details Date Type Department Care Team (Late st Contact Info) Description 08/11/2024 3:20 PM EDT Telemedicine Family [facility] [address] [place] [address] Cesar Anderson DO [address] [place] [address] Dysuria* Allergies Active Allergy Reactions Criticality Noted Date [...] With food until gone. 14 Capsule 08/11/2024 Active documented as of this encounter (statuses [...] on file documented as of this encounter Progress Notes * Cesar Anderson, - 08/11/2024 3:30 PM EDT Images from the original note were not included. Assessment and Plan Assessment & Plan Suspected Urinary Tract Infection History of recurrent UTIs, currently symptomatic. Past treatments have included Bactrim, Macrobid, and Cipro. Urine culture pending. -Start Macrobid empirically. -Monitor urine culture results and adjust treatment as necessary. History of Diabetes Increased risk for UTIs. -No changes to current management. History of Renal Surgery Single kidney due to past surgical removal. -No changes to current management. History of Present Illness Angy Shafer is a 64 year old female that presents for No chief complaint on file. History of Present Illness The patient, with a history of diabetes and a single kidney due to past surgeries, presents with symptoms suggestive of a urinary tract infection (UTI). She reports not feeling well and has a historyof recurrent UTIs, often treated at an urgent care center. She has previously been treated with various antibiotics including sulfa, Bactrim, Macrobid, and Cipro. The patient notes that on one occasion, initial antibiotic treatment was ineffective, necessitating a switch to Cipro. She also mentionsthat she has occasionally experienced UTI symptoms, but subsequent urine cultures have been negative. Physical Exam There were no vitals filed for this visit. Physical Exam Constitutional: Appearance: Normal appearance. Neurological: General: No focal deficit present. Mental Status: She is alert and oriented to person, place, and time. Wrap-Up Time: Total time today was 20 minutes excluding any time spent in the performance of separately billed services. Telemedicine: Patient location: HOME. I was in a hospital or clinic location. After connecting through televideo,patient was verified with two unique identifiers. Patient (or authorized legal ambulatory services representative) was then informed that this was a Telemedicine visit and being conducted confidentially over secure lines. Methods to assure confidentiality were taken. Patient acknowledged consent and understanding of pr ivacy and security of the Telemedicine visit. The patient agreed to participate. Text in this note was generated using an [employer] documentation service. I discussed the use of a device to record and summarize our discussion today. All persons present during the encounter consented to its use. documented in this encounter Plan of Treatment Upcoming Encounters Date Type Department Care Team (Late st Contact Info) Description 11/11/2024 2:00 PM EST Office Visit Nutrition & Weight Management, [facility] 132 [facility] [place] [address] Celena Hogan PA-C [address] [place] [address] 11/11/2024 2:50 PM EST Nutrition Services Nutrition & Weight Management, [facility] [place] [address] Merissa Shankar RDN [address] [place] [address] 01/01/2025 4:00 PM EDT Cardiac Studies Cardiac Studies, [facility] 132 [facility] [place] [address] 01/14/2025 3:30 PM EDT Office Visit Cardiology, [facility] 132 [facility] [place] [address] Sonia Farrar CRNP [address] [place] [address] 02/27/2025 4:00 PM EDT Office Visit [facility] [address] [facility] [address] Mine Beverly MD [address] [facility] [place] [phone] Scheduled Procedures Name Priority Associated Diagnoses Date/Ti [...] Primary documented in this encounter Care Teams Laser Cutter Relationship Specialty Start Date End Date Mine Beverly MD [address] [place] [address] PCP - General Family Medicine 07/12/21 documented as of this encounter
--- OUTSIDE RECORDS SUMMARY | 2024-09-26 11:38 | External Medical Summary | Summary of Care ---
Author Name Unknown Organization [facility] Address [address] [place] [address] Phone [phone] Care Team Providers Care Assistant Spa Manager Name Role Phone Mine Beverly MD Primary Care Provid er Reason for Visit * Reason Onset Date Comments Urinary Tract Infection Symptoms 08/11/2024 Encounter Details Date Type Department Care Team (Late st Contact Info) Description 08/11/2024 Telephone [facility] [address] [place] [phone] Mine Beverly MD [address] [place] [address] Urinary Tract Infection Symptoms Allergies [...] last 2 weeks):no Discharge from hospital or [facility] within last 2 weeks: no Are you a diabetic: yes Immunosuppressed (taking steroids, chemotherapy): no E [id number] [facility] Results for orders placed or performed in visit on 08/15/23 CULTURE, URINE, QUANTITATIVE Specimen: Urine, Clean Catch Result Value Ref Range Culture Growth No significant growth Requested Video Visit. Refused urgent care Scheduled today at 3:20 with for Video visit. Request UA C& S orders prior to appt. Will go to [facility]. Please call her back if orders signed. Please advice documented in this encounter Plan of Treatment Upcoming Encounters Date Type Department Care Team (Late st Contact Info) Description 11/11/2024 2:00 PM EST Office Visit Nutrition & Weight Management, [facility] [address] [place] [address] Celena Hogan PA-C [address] [place] [address] 11/11/2024 2:50 PM EST Nutrition Services Nutrition & Weight Management, [facility] 132 [facility] [place] [address] Merissa Shankar RDN 132 [facility] [place] [address] 01/01/2025 4:00 PM EDT Cardiac Studies Cardiac Studies, [facility] [address] [facility] [place] [address] 01/14/2025 3:30 PM EDT Office Visit Cardiology, [facility] [address] [facility] [place] [address] Sonia Farrar CRNP [address] [place] [address] 02/27/2025 4:00 PM EDT Office Visit [facility] [address] [place] [phone] Mine Beverly MD [address] [place] [address] Scheduled Orders Name Type Priority Associated Diagnoses [...] Primary documented in this encounter Care Teams Assistant Spa Manager Relationship Specialty Start Date End Date Mine Beverly MD [address] [place] [address] PCP - General Family Medicine 07/12/21 documented as of this encounter
--- OUTSIDE RECORDS SUMMARY | 2024-09-26 11:38 | External Medical Summary | Summary of Care ---
Author Name Unknown Organization [facility] Address [address] [place] [address] Phone [phone] Care Team Providers Care Shop Manager Name Role Phone Mine Beverly MD Primary Care Provid er Reason for Visit * Reason Onset Date Comments Pre Cert/Prior Auth 08/08/2024 Encounter Details Date Type Department Care Team (Late st Contact Info) Description 08/08/2024 Telephone [facility] [address] [place] [phone] Mine Beverly MD [address] [place] [address] Pre Cert/Prior Auth Allergies Active Allergy Reactions Criticality Noted Date [...] by mouth. Active Vitamin D3 50 MCG (1999 UT) Oral [...] encounter Miscellaneous Notes * Telephone Encounter - Aleksandra Mcbride LPN - 08/08/2024 2:24 PM EDT Prior auth submitted through [facility] for protonix, Access esparza is [id number] documented in this encounter Plan of Treatment Upcoming Encounters Date Type Department Care Team (Late st Contact Info) Description 08/11/2024 3:20 PM EDT Telemedicine Family Practice [facility] [address] [address] Cesar Anderson DO [address] [address] 11/11/2024 2:00 PM EST Office Visit Nutrition & Weight Management, [facility] [address] [address] Celena Hogan PA-C [address] [address] 11/11/2024 2:50 PM EST Nutrition Services Nutrition & Weight Management, [facility] [address] [address] Merissa Shankar RDN [address] [address] 01/01/2025 4:00 PM EDT Cardiac Studies Cardiac Studies, [facility] 132 [facility] [place] [address] 01/14/2025 3:30 PM EDT Office Visit [facility]iology, [facility] [place] [address] Sonia Farrar CRNP 132 [facility] [place] [place] [address] 02/27/2025 4:00 PM EDT Office Visit Family [facility] [address] [place] [phone] Mine Beverly MD [address] [place] [address] Scheduled Orders Name Type Priority Associated Diagnoses Orde r Schedule CULTURE, URINE, QUANTITATIVE Lab Routine Dysuria Expected: 08/11/2024, Expires: 08/11/2025 URINALYSIS WITH MICROSCOPIC EXAM Lab Routine Dysuria Expected: 08/11/2024 (Approximate), Expires: 08/11/2025 Scheduled Procedures Name Priority Associated [...] this encounter Visit Diagnoses Diagnosis Dysuria- Primary Dysuria- Primary documented in this encounter Care Teams Shop Manager Relationship Specialty Start Date End Date Mine Beverly MD [address] [place] [address] PCP - General Family Medicine 07/12/21 documented as of this encounter
--- OUTSIDE RECORDS SUMMARY | 2024-09-26 11:39 | External Medical Summary | Summary of Care ---
Author Name Unknown Organization [facility] Address [address] [place] [address] Phone [phone] Care Team Providers Care Asp Developer Name Role Phone Mine Beverly MD Primary Care Provid er Encounter Details Date Type Department Care Team (Latest Contact Info) Description 07/28/2024 2:30 PM EDT Office Visit Orthopaedics [facility] [address] [facility] [place] [address] Jay Pacheco DO [address] [place] [place] [address] Primary osteoarthritis of both knees* Allergies Active Allergy Reactions Criticality Noted Date Comments Diphenhydramine Anaphylaxis High 03/12/2019 Shellfish-Derived Products High 2 anaphylaxis documented as of this encounter (statuses as of 07/28/2024) Medications Medication Sig Dispensed Refills Start Date [...] the evening. 180 Tablet 3 07/04/2024 Active Hospital, Clinic, or Other Facility Administered Medication Ordered Dose Route Frequency Start Date End Date Status sodium hyaluronate (Gelsyn-3) 16.8 MG/2ML inj 16.8 mgIndications:Primary osteoarthritis of both knees 16.8 mg IX ONCE 07/28/2024 07/28/2024 Ended sodium hyaluronate (Gelsyn-3) 16.8 MG/2ML inj 16.8 mgIndications:Primary osteoarthritis of both knees 16.8 mg IX ONCE 07/28/2024 07/28/2024 Ended documented as of this encounter (statuses as of 07/28/2024) Active Problems Problem Noted Date Diagnosed Date [...] as of this encounter (statuses as of 07/28/2024) Immunizations Name Administration Dates Next Due COVID-19 [...] money to buy more. Never true 05/19/20 Within the past 12 months, t he [...] as of this encounter Progress Notes * Jay Pacheco, DO - 07/28/2024 2:30 PM EDT Angy Hernandez [id number] Angy Hernandez is a 64 year old female who presents for follow up of bilateral knee pain to [facility]. Here for Gelsyn #3 Angy Hernandez is here unaccompanied HISTORY: Patient last seen by me August 2023 for Gelsyn series TODAY: Here for Gelsyn #3 She has had liposuction of her knees. She is also hoping for a TKA in early 2024. Patient Active Problem List Diagnosis Chronic midline back pain Gait disturbance Primary osteoarthritis of both knees H/O unilateral nephrectomy H/O bariatric surgery KEELY on CPAP Type 2 diabetes mellitus without complication, without long-term current use of insulin ([facility]) Acquired hypothyroidism Other insomnia GERD (gastroesophageal reflux disease) Frequent PVCs Long-term current use of benzodiazepine Severe allergy Morbid obesity due to excess calories ([facility]) Diet-controlled type 2 diabetes mellitus ([facility]) Body mass index (BMI) of 40.0 to 44.9 in adult ([facility]) Single kidney Current Outpatient Medications Medication Sig Dispense Refill Docusate Sodium 250 MG Oral Capsule Take 1 Capsule by mouth. Aspirin 81 MG Oral Tablet Delayed Release Take 2 Tablets by mouth in the morning. One-Daily Multi Vitamins Oral Tablet Take 1 Tablet by mouth. Vitamin D3 50 MCG (2000 UT) Oral [...] day. BiPAP every night at bedtime . / Polyethylene Glycol 3350 17 GM Oral Packet [...] No current facility-administered medications for this visit. Hemoglobin AIC Results: Lab Results Component Value Date/Time HEMOGLOBIN A1C - [facility] 5.7 (H) 07/14/2024 03:10 PM HEMOGLOBIN A1C - [facility] 5.7 (H) 03/24/2024 11:01 AM HEMOGLOBIN A1C - [facility] 5.4 07/11/2023 04:06 PM ROS EXAM: Constitional: No change in weight, No weakness, No fatigue, and No fevers, sweats, or chills Physical Exam Gait and Station: slightly antalgic Assessment and Plan: See procedure note for Gelsyn injections. Follow up PRN, sports she is moving in May. Primary osteoarthritis of both knees (Primary) - POINT OF CARE US MAJOR JOINT INJECTION, ORTHO - sodium hyaluronate (Gelsyn-3) 16.8 MG/2ML inj 16.8 mg - sodium hyaluronate (Gelsyn-3) 16.8 MG/2ML inj 16.8 mg Jay Pacheco, DO Primary Care Sports Medicine Orthopaedics [address] [address] This chart was completed in part utilizing [employer] Speech Voice Recognition Software. Grammatical errors, random word insertions, pronoun errors, and incomplete sentences are an occasional consequence of this system due to software limitations, ambient noise, and hardware issues. Any formal questions or concerns about the content, text, or information contained within the body of this dictation should be directly addressed to the provider for clarification. PROCEDURE NOTE: KNEE INJECTION - ULTRASOUND Laterality: Bilateral Time out: Prior to injection, a time out was called to confirm the administration of appropriate medicine, patient name, procedure and confirm to the best of our ability and knowledge the presence of any necessary risks and benefits. Patient verbalized understanding. Ultrasound utilized to guide injection. During the procedure, the needle was visualized in plane and was advanced with continuous ultrasound guidance to the appropriate anatomical landmark as described in the procedure. Ultrasound required due to high risk for complications without ultrasound guidance (risk for neurovascular damage) Sterile technique applied using gloves, chlorhexadine, and alcohol swabs. Ethyl chloride spray for local anesthetic. Knee injected at superior-lateral recess 1.5 inch, 21 gauge needle. Injected with Gelsyn. Patient tolerated procedure with no significant bleeding or adverse reaction. Patient instructed to call or return to clinic for fever, warmth, unusual redness at injection sitefor potential infection. Patient also advised regarding post-procedural pain. Jay Pacheco DO Sports Medicine Primary Care Orthopaedics [facility] [address] [place] [address] documented in this encounter Plan of Treatment Upcoming Encounters Date Type Department Care Team (Late st Contact Info) Description 11/11/2024 2:00 PM EST Office Visit Nutrition & Weight Management, [facility] [address] [facility] [place] [place] [address] Celena Hogan PA-C [address] [place] [address] 11/11/2024 2:50 PM EST Nutrition Services Nutrition & Weight Management, [facility] [address] [facility] [address] [place] [address] Merissa Shankar RDN [address] [place] [address] 01/01/2025 4:00 PM EDT Cardiac Studies Cardiac Studies, [facility] [address] [facility] [place] [address] 01/14/2025 3:30 PM EDT Office Visit Cardiology, [facility] [address] [facility] [address] [place] [address] Sonia Farrar CRNP [address] [place] [address] 02/27/2025 4:00 PM EDT Office Visit [facility] [address] [place] [facility] [place] [phone] Mine Beverly MD [address] [facility] [address] Scheduled Procedures Name Priority Associated Diagnoses Date/Ti [...] of 2) 2011 Depression Screening 05/19/2023 05/19/2022 Mammogram 05/23/2024 05/23/2023, 05/16, 12/16/2019 COVID-19 Vaccine ( season) 2024 08/09/2022, 03/22/2022, 09/09/2021, Additional history exists Influenza Vaccine (FLU shot) (#1) 2024 08/09/2023, 08/09/2022, 08/09/2022 Diabetic Eye Exam 08/06/2024 03/27/2023, , 02/07/2022, Additional history exists Postponed from 03/27/2024 (Other) Diabetic Foot Exam 08/14/2024 08/14/2023, 08/14/2022 HbA1c [...] Not on filedocumented as of this encounter Procedures Procedure Name Priority Date/Time Associated Diagnosis Comments POINT OF CARE US MAJOR JOINT INJECTION, ORTHO Routine 07/28/2024 1:27 PM EDT Primary osteoarthritis of both knees documented in this encounter Results * POINT OF CARE US MAJOR JOINT INJECTION, ORTHO (07/28/2024 1:27 PM EDT) Anatomical Region Laterality Modality Musculoskeletal Radiographic Stephanie ging 07/28/2024 1:27 PM EDT Narrative 07/28/2024 3:51 PM EDT Patient Name: ANGY HERNANDEZ : 1960 (64y) Female Performing Provider: Jay Pacheco (digitally signed Jul 28, 2024 15:51 EDT) Attending: Jay Pacheco (digitally signed Jul 28, 2024 15:51 EDT) [Impression] : PROCEDURE NOTE: KNEE INJECTION - ULTRASOUND Laterality: Bilateral Time out: Prior to injection, a time out was called to confirm the administration of appropriate medicine, patient name, procedure and confirm to the best of our ability and knowledge the presence of any necessary risks and benefits. Patient verbalized understanding. Ultrasound utilized to guide injection. During the procedure, the needle was visualized in plane and was advanced with continuous ultrasound guidance to the appropriate anatomical landmark as described in the procedure. Ultrasound required due to high risk for complications without ultrasound guidance (risk for neurovascular damage) Sterile technique applied using gloves, chlorhexadine, and alcohol swabs. Ethyl chloride spray for local anesthetic. Knee injected at superior-lateral recess 1.5 inch, 21 gauge needle. Injected with Gelsyn. Patient tolerated procedure with no significant bleeding or adverse reaction. Patient instructed to call or return to clinic for fever, warmth, unusual redness at injection site for potential infection. Patient also advised regarding post-procedural pain. Jay Pacheco DO Sports Medicine Primary Care Orthopaedics [address] [address] Procedure Note Jay Pacheco DO - 07/28/2024 Patient Name: ANGY HERNANDEZ : 1960 (64y) Female Performing Provider: Jay Pacheco (digitally signed Jul 28, 2024 15:51EDT) Attending: Jay Pacheco (digitally signed Jul 28, 2024 15:51 EDT) [Impression] : PROCEDURE NOTE: KNEE INJECTION - ULTRASOUND Laterality: Bilateral Time out: Prior to injection, a time out was called to confirm the administration ofappropriate medicine, patient name, procedure and confirm to the best ofour ability and knowledge the presence of any necessary risks andbenefits. Patient verbalized understanding. Ultrasound utilized to guide injection. During the procedure, the needle was visualized in plane and was advancedwith continuous ultrasound guidance to the appropriate anatomical landmarkas described in the procedure. Ultrasound required due to high risk for complications without ultrasoundguidance (risk for neurovascular damage) Sterile technique applied using gloves, chlorhexadine, and alcoholswabs. Ethyl chloride spray for local anesthetic. Knee injected at superior-lateral recess 1.5 inch, 21 gauge needle.Injected with Gelsyn. Patient tolerated procedure with no significant bleeding or adversereaction. Patient instructed to call or return to clinic for fever, warmth, unusualredness at injection site for potential infection. Patient also advisedregarding post- procedural pain. Jay Pacheco DO Sports Medicine Primary Care Orthopaedics [address] [address] Jay Pacheco DO RAD ULTRASOUND documented in this encounter Visit Diagnoses Diagnosis Primary osteoarthritis of both knees- Primary Primary localized osteoarthrosis, lower leg documented in this encounter Administered Medications Inactive Administered Medications - up to 3 most recent administrations Medication Order MAR Action Action Date Dose Rate Site sodium hyaluronate (Gelsyn-3) 16.8 MG/2ML inj 16.8 mg 16.8 mg, Intra-Articular, ONCE, On Sun07/28/24 at 1615, For 1 dose Given 07/28/2024 4:03 PM EDT 16.8 mg K nee Right sodium hyaluronate (Gelsyn-3) 16.8 MG/2ML inj 16.8 mg 16.8 mg, Intra-Articular, ONCE, On Sun07/28/24 at 1615, For 1 dose Given 07/28/2024 4:03 PM EDT 16.8 mg K nee Left documented in this encounter Care Teams Asp Developer Relationship Specialty Start Date End Date Mine Beverly MD [address] [place] [address] PCP - General Family Medicine 07/12/21 documented as of this encounter
--- OUTSIDE RECORDS SUMMARY | 2024-09-26 11:39 | External Medical Summary | Summary of Care ---
Author Name Unknown Organization [facility] Address [address] [place] [address] Phone [phone] Care Team Providers Care Bedspring Assembler Name Role Phone Mine Beverly MD Primary Care Provid er Reason for Visit * Reason Onset Date Comments Durable Medical Equipment 07/11/2024 CPAP s upplies Encounter Details Date Type Department Care Team (Late st Contact Info) Description 07/11/2024 Telephone Sleep Disorders [facility]tr [facility] [address] [place] [phone] Diamond Kwong [address] [place] [address] Durable Medical Equipment (CPAP supplies ) Allergies Active Allergy Reactions Criticality Noted Date Comments Diphenhydramine Anaphylaxis High 03/12/2019 Shellfish-Derived Products High 2 anaphylaxis documented as of this encounter (statuses as of 08/04/2024) Medications Medication Sig Dispensed Refills Start Date [...] as of this encounter (statuses as of 08/04/2024) Active Problems Problem Noted Date Diagnosed Date [...] as of this encounter (statuses as of 08/04/2024) Immunizations Name Administration Dates Next Due COVID-19 [...] encounter Miscellaneous Notes * Telephone Encounter - Paola Poe OSA - 08/04/2024 12:41 PM EDT Per TH: "Your DME Supplier, [employer] ([place]), has canceled order citing unable to reach the patient. We would encourage you to consult with your patient for the best next steps in regards to treatment." * Telephone Encounter - aPola Poe OSA - 07/11/2024 2:08 PM EDT DME order for CPAP supplies submitted to [facility]. documented in this encounter Plan of Treatment Upcoming Encounters Date Type Department Care Team (Late st Contact Info) Description 11/11/2024 2:00 PM EST Office Visit Nutrition & Weight Management, [facility] [address] [address] Celena Hogan PA-C [address] [address] 11/11/2024 2:50 PM EST Nutrition Services Nutrition & Weight Management, [facility] [address] [address] Merissa Shankar RDN 132 [facility] [place] [address] 01/01/2025 4:00 PM EDT Cardiac Studies Cardiac Studies, [facility] [place] [address] 01/14/2025 3:30 PM EDT Office Visit Cardiology, [facility] 132 [place] [address] Sonia Farrar CRNP [facility] [place] [address] 02/27/2025 4:00 PM EDT Office Visit [facility] [address] [place] [address] Mine Beverly MD [address] [place] [address] Scheduled Procedures Name Priority Associated Diagnoses Date/Ti [...] filedocumented as of this encounter Care Teams Bedspring Assembler Relationship Specialty Start Date End Date Mine Beverly MD [address] [facility] [place] [address] PCP - General Family Medicine 07/12/21 documented as of this encounter
--- OUTSIDE RECORDS SUMMARY | 2024-09-26 11:39 | External Medical Summary | Summary of Care ---
Author Name Unknown Organization [facility] Address [address] [place] [address] Phone [phone] Care Team Providers Care Registration Representative Name Role Phone Mine Beverly MD Primary Care Provid er Encounter Details Date Type Department Care Team ([facility] st Contact Info) Description 07/24/2024 Patient Reported Data Patient Survey Ortho OBERD Allergies Active Allergy Reactions Criticality Noted Date Comments Diphenhydramine Anaphylaxis High 03/12/2019 Shellfish-Derived Products High 2 anaphylaxis documented as of this encounter (statuses as of 07/24/2024) Medications Medication Sig Dispensed Refills Start Date [...] as of this encounter (statuses as of 07/24/2024) Active Problems Problem Noted Date Diagnosed Date [...] as of this encounter (statuses as of 07/24/2024) Immunizations Name Administration Dates Next Due COVID-19 [...] Care Team (Late st Contact Info) Description 07/28/2024 2:30 PM EDT Office Visit Orthopaedics [facility] [address] [address] Jay Pacheco DO [address] [place] [address] 11/11/2024 2:00 PM EST Office Visit Nutrition & Weight Management, [facility] [address] [place] [address] Celena Hogan PA-C [address] [place] [address] 11/11/2024 2:50 PM EST Nutrition Services Nutrition & Weight Management, [facility] [address] [place] [address] Merissa Shankar RDN [address] [place] [address] 01/01/2025 4:00 PM EDT Cardiac Studies Cardiac Studies, [facility] [address] [facility] [place] [address] 01/14/2025 3:30 PM EDT Office Visit Cardiology, [facility] [address] [place] [address] Sonia Farrar CRNP [address] [place] [address] 02/27/2025 4:00 PM EDT [address] [phone] Mine Beverly MD [address] [place] [address] Scheduled Procedures Name Priority Associated Diagnoses Date/Ti [...] filedocumented as of this encounter Care Teams Registration Representative Relationship Specialty Start Date End Date Mine Beverly MD [address] [place] [address] PCP - General Family Medicine 07/12/21 documented as of this encounter
--- OUTSIDE RECORDS SUMMARY | 2024-09-26 11:39 | External Medical Summary | Summary of Care ---
Author Name Unknown Organization [facility] Address [address] [place] [address] Phone [phone] Care Team Providers Care Hydrogenation Operator Name Role Phone Mine Beverly MD Primary Care Provid er Encounter Details Date Type Department Care Team (Latest Contact Info) Description 07/21/2024 2:30 PM EDT Office Visit Orthopaedics [facility] [address] [facility] [place] [address] Jay Pacheco DO [address] [place] [address] Primary osteoarthritis of both knees* Allergies Active Allergy Reactions Criticality Noted Date Comments Diphenhydramine Anaphylaxis High 03/12/2019 Shellfish-Derived Products High 2 anaphylaxis documented as of this encounter (statuses as of 07/21/2024) Medications Medication Sig Dispensed Refills Start Date [...] of both knees 16.8 mg IX ONCE 07/21/2024 07/21/2024 Ended sodium hyaluronate (Gelsyn-3) 16.8 MG/2ML inj 16.8 mgIndications:Primary osteoarthritis of both knees 16.8 mg IX ONCE 07/21/2024 07/21/2024 Ended documented as of this encounter (statuses as of 07/21/2024) Active Problems Problem Noted Date Diagnosed Date [...] as of this encounter (statuses as of 07/21/2024) Immunizations Name Administration Dates Next Due COVID-19 [...] as of this encounter Progress Notes * Jya Pacheco, DO - 07/21/2024 2:30 PM EDT Angy Shafer [id number] Angy Shafer is a 64 year old female who presents for follow up of bilateral knee pain to [facility]. Here for Gelsyn #2 Angy Shafer is here unaccompanied HISTORY: Patient last seen by me September 03, 2023 for Gelsyn series TODAY: Here for Gelsyn #2 She has had liposuction of her knees. She is also hoping for a TKA in early 2024. Patient Active Problem List Diagnosis Chronic midline back pain Gait disturbance Primary osteoarthritis of both knees H/O unilateral nephrectomy H/O bariatric surgery KEELY on CPAP Type 2 diabetes mellitus without complication, without long-term current use of insulin ([facility]) Acquired hypothyroidism Other insomnia GERD (gastroesophageal reflux disease) Frequent PVCs Long-term current use of benzodiazepine Severe allergy Morbid obesity due to excess calories ([facility]) Diet-controlled type 2 diabetes mellitus ([facility]) Body mass index (BMI) of 40.0 to 44.9 in adult ([facility]) Single kidney Current Outpatient Medications Medication Sig [...] day. BiPAP every night at bedtime . Polyethylene Glycol 3350 17 GM Oral Packet [...] procedure note for Gelsyn injections. Follow up next week for Gelsyn #3 Primary osteoarthritis of both knees (Primary) - POINT OF CARE US MAJOR JOINT INJECTION, ORTHO - sodium hyaluronate (Gelsyn-3) 16.8 MG/2ML inj 16.8 mg - sodium hyaluronate (Gelsyn-3) 16.8 MG/2ML inj 16.8 mg Jay Pacheco DO Primary Care Sports Medicine Orthopaedics [address] [address] This chart was completed in part utilizing [employer] Speech Voice Recognition Software. Grammatical errors, random [...] Pacheco DO Sports Medicine Primary Care Orthopaedics [facility] [address] [place] [address] documented in this encounter Plan of Treatment Upcoming Encounters Date Type Department Care Team (Late st Contact Info) Description 07/21/2024 3:00 PM EDT Imaging Radiology [address] [place] [address] Arrived 07/28/2024 2:30 PM EDT Office Visit Orthopaedics [facility] [address] [place] [address] Jay Pacheco DO [address] [place] [address] 08/05/2024 3:00 PM EDT Office Visit Nutrition & Weight Management, [facility] [address] [place] [address] Cande Do PA-C [address] [place] [address] 08/05/2024 3:50 PM EDT Nutrition Services Nutrition & Weight Management, [facility] [address] [place] [address] Merissa Shankar RDN [address] [place] [address] 01/01/2025 4:00 PM EDT Cardiac Studies Cardiac Studies, [facility] [address] [place] [address] 01/14/2025 3:30 PM EDT Office Visit Cardiology, [facility] [address] [place] [address] Sonia Farrar CRNP [address] [place] [address] 02/27/2025 4:00 PM EDT Office Visit [facility] [address] [facility] [address] Mine Beverly MD [address] [facility] [place] [id number] Scheduled Orders Name Type Priority Associated Diagnoses Orde r Schedule POINT OF CARE US MAJOR JOINT INJECTION, ORTHO Medical Imaging Routine Primary osteoarthritis of both knees Ordered: 07/21/2024 Scheduled Procedures Name Priority Associated Diagnoses Date/Ti [...] as of this encounter Visit Diagnoses Diagnosis Primary osteoarthritis of both knees- Primary Primary localized osteoarthrosis, lower leg documented in this encounter Administered Medications Inactive Administered Medications - up to 3 most recent administrations Medication Order MAR Action Action Date Dose Rate Site sodium hyaluronate (Gelsyn-3) 16.8 MG/2ML inj 16.8 mg 16.8 mg, Intra-Articular, ONCE, On Sun07/21/24 at 1530, For 1 dose Given 07/21/2024 2:55 PM EDT 16.8 mg K nee Right sodium hyaluronate (Gelsyn-3) 16.8 MG/2ML inj 16.8 mg 16.8 mg, Intra-Articular, ONCE, On Sun07/21/24 at 1530, For 1 dose Given 07/21/2024 2:55 PM EDT 16.8 mg K nee Left documented in this encounter Care Teams Hydrogenation Operator Relationship Specialty Start Date End Date Mine Beverly MD [address] [place] [address] PCP - General Family Medicine 07/12/21 documented as of this encounter
--- OUTSIDE RECORDS SUMMARY | 2024-09-26 11:39 | External Medical Summary | Summary of Care ---
Author Name Unknown Organization [facility] Address [address] [place] [address] Phone [phone] Care Team Providers Care Jet Pilot Name Role Phone Mine Beverly MD Primary Care Provid er Reason for Visit * Reason Onset Date Comments Urinary Tract Infection Symptoms 08/11/2024 Encounter Details Date Type Department Care Team (Late st Contact Info) Description 08/11/2024 Telephone [facility] [address] [place] [phone] Mine Beverly MD [address] [place] [address] Urinary Tract Infection Symptoms Allergies [...] last 2 weeks):no Discharge from hospital or long term within last 2 weeks: no Are you a diabetic: yes Immunosuppressed (taking steroids, chemotherapy): no E [id number] [place] Results for orders placed or performed in visit on 08/15/23 CULTURE, URINE, QUANTITATIVE Specimen: Urine, Clean Catch Result Value Ref Range Culture Growth No significant growth Requested Video Visit. Refused urgent care Scheduled today at 3:20 with for Video visit. Request UA C& S orders prior to appt. Will go to [facility]. Please call her back if orders signed. Please advice documented in this encounter Plan of Treatment Upcoming Encounters Date Type Department Care Team (Late st Contact Info) Description 08/11/2024 3:20 PM EDT Telemedicine Family Practice [facility] [address] [place] [address] Cesar Anderson DO [address] [place] [address] 11/11/2024 2:00 PM EST Office Visit Nutrition & Weight Management, [facility] [address] [place] [address] Celena Hogan PA-C [address] [place] [address] 11/11/2024 2:50 PM EST Nutrition Services Nutrition & Weight Management, [facility] [address] [place] [address] Merissa Sahnkar RDN [address] [place] [address] 01/01/2025 4:00 PM EDT Cardiac Studies Cardiac Studies, [facility] 132 [place] [address] 01/14/2025 3:30 PM EDT Office Visit Cardiology, [facility] [address] [place] [address] Sonia Farrar CRNP [address] [place] [address] 02/27/2025 4:00 PM EDT Office Visit [place] [address] [place] [phone] Mine Beverly MD [address] [place] [address] Scheduled Orders Name Type Priority Associated Diagnoses Orde r Schedule URINALYSIS, REFLEX TO MICROSCOPIC Lab Routine Dysuria Expected: 08/11/2024, Expires: 08/11/2025 CULTURE, URINE, QUANTITATIVE Lab Routine Dysuria Expected: [...] Primary documented in this encounter Care Teams Jet Pilot Relationship Specialty Start Date End Date Mine Beverly MD [address] [place] [address] PCP - General Family Medicine 07/12/21 documented as of this encounter
--- OUTSIDE RECORDS SUMMARY | 2024-09-26 11:39 | External Medical Summary ---
Author Name Unknown Address Unknown Organization K01:[facility] - [address] [facility] [address] Laboratory Report Ordering Provider Test Date Status KRISTIN DOSHI 08/11/2024 15:12:40 Final Observation Date Value Abnormality Reference (Units) Status Bacteria identified in Specimen by Culture 08/11/2024 15:12:40 No significant growth Final Test: Culture, Urine, Quanti tative
Specimen Source: Urine, Clean Catch
Specimen Type: Urine
Specimen Date: 08/11/2024 1512
Result Date: 08/12/2024 1627
Result Status: Final result
Resulting Lab: [facility]
[address]
[facility] [address]

CULTURE

No significant growth

null Performing Location [facility] - [address] [facility] [address]
--- OUTSIDE RECORDS SUMMARY | 2024-09-26 11:39 | External Medical Summary | Summary of Care ---
Author Name Unknown Organization [facility] Address [address] [place] [address] Phone [phone] Care Team Providers Care Copy Writer Name Role Phone Mine Beverly MD Primary Care Provid er Encounter Details Date Type Department Care Team (Latest Contact Info) Description 07/21/2024 2:30 PM EDT Office Visit Orthopaedics [facility] [address] [facility] [place] [address] Jay Pacheco DO [address] [place] [address] Primary osteoarthritis of both knees* Allergies Active [...] Progress Notes * Jay Pacheco, DO - 07/21/2024 2:30 PM EDT Angy Hernandez [id number] Angy Hernandez is a 64 year old female who presents for follow up of bilateral knee pain to [facility]. Here for Gelsyn #2 Angy Hernandez is here unaccompanied HISTORY: Patient [...] complication, without long-term current use of insulin ([facility]) Acquired hypothyroidism Other insomnia GERD (gastroesophageal reflux disease) Frequent PVCs Long-term current use of benzodiazepine Severe allergy Morbid obesity due to excess calories ([facility]) Diet-controlled type 2 diabetes mellitus ([facility]) Body mass index (BMI) of 40.0 to 44.9 in adult ([facility]) Single kidney Current Outpatient Medications [...] Pacheco DO Primary Care Sports Medicine Orthopaedics [address] [address] This chart was completed in part utilizing [employer] Speech Voice Recognition Software. Grammatical errors, random [...] Medicine Primary Care Orthopaedics [facility] [address] [place] [address] documented in this encounter Plan of Treatment Upcoming Encounters Date Type Department Care Team (Late st Contact Info) Description 07/28/2024 2:30 PM EDT Office Visit Orthopaedics [facility] [address] [place] [address] Jay Pacheco DO [address] [place] [address] 08/05/2024 3:00 PM EDT Office Visit Nutrition & Weight Management, [facility] [address] [place] [address] Cande Do PA-C [address] [place] [address] 08/05/2024 3:50 PM EDT Nutrition Services Nutrition & Weight Management, [facility] [address] [place] [address] Merissa Shankar RDN [address] [place] [address] 01/01/2025 4:00 PM EDT Cardiac Studies Cardiac Studies, [facility] [address] [place] [address] 01/14/2025 3:30 PM EDT Office Visit [facility], [facility] [place] [address] Sonia Farrar CRNP [address] [place] [address] 02/27/2025 4:00 PM EDT Office Visit [facility] [address] [place] [address] Mine Beverly MD [address], [place] [phone] Scheduled Procedures Name Priority Associated Diagnoses Date/Ti [...] CARE US MAJOR JOINT INJECTION, ORTHO Routine 07/21/2024 1:10 PM EDT Primary osteoarthritis of both knees documented in this encounter Results * POINT OF CARE US MAJOR JOINT INJECTION, ORTHO (07/21/2024 1:10 PM EDT) Anatomical Region Laterality Modality Musculoskeletal Radiographic Stephanie ging 07/21/2024 1:10 PM EDT Narrative 07/21/2024 2:57 PM EDT Patient Name: ANGY HERNANDEZ : 1960 (64y) Female Performing Provider: Jay Pacheco (digitally signed Jul 21, 2024 14:57 EDT) Attending: Jay Pacheco (digitally signed Jul 21, 2024 14:57 EDT) [Impression] : PROCEDURE NOTE: KNEE INJECTION [...] Pacheco DO Sports Medicine Primary Care Orthopaedics [address] [address] Procedure Note Jay Pacheco DO - 07/21/2024 Patient Name: ANGY HERNANDEZ : 1960 (64y) Female Performing Provider: Jay Pacheco (digitally signed Jul 21, 2024 14:57EDT) Attending: Jay Pacheco (digitally signed Jul 21, 2024 14:57 EDT) [Impression] : PROCEDURE NOTE: KNEE INJECTION [...] Pacheco DO Sports Medicine Primary Care Orthopaedics [address] [address] Jay Pacheco DO RAD ULTRASOUND documented in [...] Left documented in this encounter Care Teams Copy Writer Relationship Specialty Start Date End Date Mine Beverly MD [address] [place] [address] PCP - General Family Medicine 07/12/21 documented as of this encounter
--- OUTSIDE RECORDS SUMMARY | 2024-09-26 11:39 | External Medical Summary ---
Author Name Unknown Address Unknown Organization K01:[facility] - [address] [facility] [address] Laboratory Report Ordering Provider Test Date Status KRISTIN DOSHI 08/11/2024 15:12:40 Final Observation Date Value Abnormality Reference (Units ) Status Color of Urine by Auto 08/11/2024 15:12:40 Colorless Colorless, Light Yellow, Yellow, Dark Yellow Final Clarity, Urine 08/11/2024 15:12:40 Clear Clear Final Glucose [Mass/volume] in Urine by Automated test strip 08/11/2024 15:12:40 Negative Negative (mg/dL) Final Bilirubin.total [Presence] in Urine by Automated test strip 08/11/2024 15:12:40 Negative Negative Final Ketones [Mass/volume] in Urine by Automated test strip 08/11/2024 15:12:40 Negative Negative (mg/dL) Final Specific gravity, Urine 08/11/2024 15:12:40 1.009 1.003-1.030 Final Hemoglobin [Presence] in Urine by Automated test strip 08/11/2024 15:12:40 Negative Negative Final pH, Urine 08/11/2024 15:12:40 6.5 5.0-7.5 (Units) Final Protein [Mass/volume] in Urine by Automated test strip 08/11/2024 15:12:40 Negative Negative (mg/dL) Final Urobilinogen [Mass/volume] in Urine by Automated test strip 08/11/2024 15:12:40 Normal Normal (mg/dL) Final Nitrite [Presence] in Urine by Automated test strip 08/11/2024 15:12:40 Negative Negative Final Leukocyte esterase [Presence] in Urine by Automated test strip 08/11/2024 15:12:40 Negative Negative Final RBC, Urine 08/11/2024 15:12:40 0-2 0-2 (/HPF) Final WBC, Urine 08/11/2024 15:12:40 0-2 0-2 (/HPF) Final Bacteria [#/area] in Urine sediment by Microscopy high power field 08/11/2024 15:12:40 0-25 0-25 (/HPF) Final Performing Location [facility] - [facility] [address] [facility] [address]
--- OUTSIDE RECORDS SUMMARY | 2024-09-26 11:39 | External Medical Summary | Summary of Care ---
Author Name Unknown Organization [facility] Address [address] [place] [address] Phone [phone] Care Team Providers Care Granite Polisher Machine Name Role Phone Mine Beverly MD Primary Care Provid er Reason for Visit * Reason Comments Outpatient Testing Encounter Details Date Type Department Care Team (Late st Contact Info) Description 07/14/2024 3:30 PM EDT Laboratory Laboratory, [facility] 132 [place] [phone] [facility] [address] [place] [address] [employer] Other*[id number]; Long-term current use of benzodiazepine; Type 2 diabetes mellitus without complication, without long-term current use of insulin ([facility]); Diet-controlled type 2 diabetes mellitus ([facility]); Acquired hypothyroidism; KEELY on CPAP; Frequent PVCs; Body mass index (BMI) of 40.0 to 44.9 in adult ([facility]); Gastroesophageal reflux disease, unspecified whether esophagitis present; Dyslipidemia, goal LDL below 70; Single kidney; Anxiety; Gastroesophageal reflux disease with esophagitis without hemorrhage Allergies Active Allergy Reactions Criticality Noted Date Comments Diphenhydramine Anaphylaxis High 03/12/2019 Shellfish-Derived Products High 2 anaphylaxis documented as of this encounter (statuses as of 07/14/2024) Medications Medication Sig Dispensed Refills Start Date [...] as of this encounter (statuses as of 07/14/2024) Active Problems Problem Noted Date Diagnosed Date [...] as of this encounter (statuses as of 07/14/2024) Immunizations Name Administration Dates Next Due COVID-19 [...] Team (Late st Contact Info) Description 07/21/2024 2:30 PM EDT Office Visit Orthopaedics [facility] [address] [place] [address] Jay Pacheco DO [address] [place] [address] 07/28/2024 2:30 PM EDT Office Visit Orthopaedics [facility] [address] [place] [address] Jay Pacheco DO [address] [place] [address] 08/05/2024 3:00 PM EDT Office Visit Nutrition & Weight Management, [facility] [address] [place] [address] Cande Do PA-C [address] [place] [address] 08/05/2024 3:50 PM EDT Nutrition Services Nutrition & Weight Management, [facility] 132 [facility] [place] [address] Merissa Shankar RDN [address] [facility] [place] [address] 01/01/2025 4:00 PM EDT Cardiac Studies Cardiac Studies, [facility] 132 [facility] [place] [address] 01/14/2025 3:30 PM EDT Office Visit [facility]iology, [facility] [address] [facility] [place] [address] Sonia Farrar CRNP [address] [place] [address] 02/27/2025 4:00 PM EDT Office Visit [facility] [address] [place] [phone] Mine Beverly MD [address] [place] [address] Pending Results Name Type Priority Associated Diagnoses Date /Time MYCODE SUBSEQUENT ADULT Lab Routine [employer] Other*[id number] 07/14/2024 3:10 PM EDT HEMOGLOBIN A1C Lab Routine Long-term current use of benzodiazepine Type 2 diabetes mellitus without complication, without long-term current use of insulin (HCC) Diet-controlled type 2 diabetes mellitus (HCC) Acquired hypothyroidism KEELY on CPAP Frequent PVCs Body mass index (BMI) of 40.0 to 44.9 in adult ([facility]) Gastroesophageal reflux disease, unspecified whether esophagitis present Dyslipidemia, goal LDL below 70 Single kidney Anxiety Gastroesophageal reflux disease with esophagitis without hemorrhage 07/14/2024 3:10 PM EDT COMPREHENSIVE METABOLIC PANEL Lab Routine Long-term current use of benzodiazepine Type 2 diabetes mellitus without complication, without long-term current use of insulin (HCC) Diet-controlled type 2 diabetes mellitus (HCC) Acquired hypothyroidism KEELY on CPAP Frequent PVCs Body mass index (BMI) of 40.0 to 44.9 in adult (HCC) Gastroesophageal reflux disease, unspecified whether esophagitis present Dyslipidemia, goal LDL below 70 Single kidney Anxiety Gastroesophageal reflux disease with esophagitis without hemorrhage 07/14/2024 3:10 PM EDT LIPID PANEL WITH DIRECT LDL IF TG IS HIGH Lab Routine Long-term current use of benzodiazepine Type 2 diabetes mellitus without complication, without long-term current use of insulin (HCC) Diet-controlled type 2 diabetes mellitus (HCC) Acquired hypothyroidism KEELY on CPAP Frequent PVCs Body mass index (BMI) of 40.0 to 44.9 in adult (HCC) Gastroesophageal reflux disease, unspecified whether esophagitis present Dyslipidemia, goal LDL below 70 Single kidney Anxiety Gastroesophageal reflux disease with esophagitis without hemorrhage 07/14/2024 3:10 PM EDT VITAMIN B12 Lab Routine Gastroesophageal reflux disease with esophagitis without hemorrhage 07/14/2024 3:10 PM EDT MYCODE SST1 Lab Routine [employer] Other*[id number] 07/14/2024 3:10 PM EDT MYCODE SST2 Lab Routine [employer] Other*[id number] 07/14/2024 3:10 PM EDT Scheduled Procedures Name Priority Associated [...] (FLU shot) (#1) 2024 08/09/2023, 08/09/2022, 08/09/2022 GFR 07/11/2024 07/11/2023, 08/0 04/2023, 01/30/2023, Additional history exists Diabetic Eye Exam 08/06/2024 03/27/2023, , 02/07/2022, Additional history exists Postponed from 03/27/2024 (Other) Diabetic Foot Exam 08/14/2024 08/14/2023, 08/14/2022 HbA1c 09/23/2024 03/24/2024, 06/16, 01/30/2023, Additional history exists Albumin/Creatinine Ratio 03/24/2025 024, 01/30/2023, 01/02/2022 TSH 03/24/2025 03/24/2024, 041 05/2023, 01/02/2022 Lipid Panel 07/11/2028 07/11/2023, 06/16, 01/26/2022 Colonoscopy 07/06/2033 07/06/2023, 07/06/2023 Colorectal Cancer Screening [...] as of this encounter Visit Diagnoses Diagnosis [employer] Other*[id number] Long-term current use of benzodiazepine Type 2 diabetes mellitus without complication, without long-term current use of insulin (HCC) Diet-controlled type 2 diabetes mellitus (HCC) Type II or unspecified type diabetes mellitus without mention of complication, not stated as uncontrolled Acquired hypothyroidism Unspecified hypothyroidism KEELY on CPAP Obstructive sleep apnea (adult) (pediatric) Frequent PVCs Other premature beats Body mass index (BMI) of 40.0 to 44.9 in adult (HCC) Gastroesophageal reflux disease, unspecified whether esophagitis present Dyslipidemia, goal LDL below 70 Other and unspecified hyperlipidemia Single kidney Congenital renal agenesis and dysgenesis Anxiety Anxiety state, unspecified Gastroesophageal reflux disease with esophagitis without hemorrhage documented in this encounter Care Teams Granite Polisher Machine Relationship Specialty Start Date End Date Mine Beverly MD [address] [place] [address] PCP - General Family Medicine 07/12/21 documented as of this encounter
--- OUTSIDE RECORDS SUMMARY | 2024-09-26 11:39 | External Medical Summary | Summary of Care ---
Author Name Unknown Organization [facility] Address [address] [place] [address] Phone [phone] Care Team Providers Care Inclusion Special Education Teacher Name Role Phone Mine Beverly MD Primary Care Provid er Encounter Details Date Type Department Care Team (Latest Contact Info) Description 07/28/2024 2:30 PM EDT Office Visit Orthopaedics [facility] [address] [facility] [place] [address] Jay Pacheco DO [address] [place] [address] Primary osteoarthritis of both knees* Allergies Active [...] both knees 16.8 mg IX ONCE 07/28/2024 07/29/2024 Active sodium hyaluronate (Gelsyn-3) 16.8 MG/2ML inj 16.8 mgIndications:Primary osteoarthritis of both knees 16.8 mg IX ONCE 07/28/2024 07/29/2024 Active documented as of this encounter (statuses [...] DO - 07/28/2024 2:30 PM EDT Angy Shafer [id number] Angy Shafer is a 64 year old female who presents for follow up of bilateral knee pain to [facility] Sports Medicine. Here for Gelsyn #3 Angy Shafer is here unaccompanied HISTORY: Patient [...] complication, without long-term current use of insulin ([facility]) Acquired hypothyroidism Other insomnia GERD (gastroesophageal reflux disease) Frequent PVCs Long-term current use of benzodiazepine Severe allergy Morbid obesity due to excess calories ([facility]) Diet-controlled type 2 diabetes mellitus ([facility]) Body mass index (BMI) of 40.0 to 44.9 in adult ([facility]) Single kidney Current Outpatient Medications Medication [...] Pacheco, DO Primary Care Sports Medicine Orthopaedics [address] [address] This chart was completed in part utilizing [employer] Speech Voice Recognition Software. Grammatical errors, random [...] Pacheco DO Sports Medicine Primary Care Orthopaedics [facility] [address] [facility] [place] [address] documented in this encounter Plan of Treatment Upcoming Encounters Date Type Department Care Team (Late st Contact Info) Description 11/11/2024 2:00 PM EST Office Visit Nutrition & Weight Management, [facility] [address] [facility] [place] [address] Celena Hogan PA-C [address] [place] [address] 11/11/2024 2:50 PM EST Nutrition Services Nutrition & Weight Management, [facility] [address] [facility] [place] [address] Merissa Shankar RDN [address] [place] [address] 01/01/2025 4:00 PM EDT Cardiac Studies Cardiac Studies, [facility] [address] [facility] [place] [address] 01/14/2025 3:30 PM EDT Office Visit Cardiology, [facility] [address] [facility] [place] [address] Sonia Farrar CRNP [address] [place] [address] 02/27/2025 4:00 PM EDT Office Visit [facility] [address] [facility] [address] Mine Beverly MD [address] [facility] [address] Scheduled Orders Name Type Priority Associated Diagnoses Orde r Schedule POINT OF CARE US MAJOR JOINT INJECTION, ORTHO Medical Imaging Routine Primary osteoarthritis of both knees Ordered: 07/28/2024 Scheduled Procedures Name Priority Associated Diagnoses Date/Ti [...] osteoarthrosis, lower leg documented in this encounter Care Teams Inclusion Special Education Teacher Relationship Specialty Start Date End Date Mine Beverly MD [address] [place] [address] PCP - General Family Medicine 07/12/21 documented as of this encounter
--- OUTSIDE RECORDS SUMMARY | 2024-09-26 11:39 | External Medical Summary | Summary of Care ---
Author Name Unknown Organization [facility] Address [address] [place] [address] Phone [phone] Care Team Providers Care Automatic Silk Screen Printer Name Role Phone Mine Beverly MD Primary Care Provid er Reason for Visit * Reason Comments Follow Up Bilateral knee gelsy n Encounter Details Date Type Department Care Team (Latest Contact Info) Description 07/14/2024 2:30 PM EDT Office Visit Orthopaedics [facility] [address] [facility] [place] [address] Jay Pacheco, [address] [facility] [place] [address] Primary osteoarthritis of left knee*; Primary osteoarthritis of right knee Allergies Active Allergy Reactions Criticality Noted Date [...] 16.8 MG/2ML inj 16.8 mgIndications:Primary osteoarthritis of left knee,Primary osteoarthritis of right knee 16.8 mg IX ONCE 07/14/2024 07/14/2024 Ended sodium hyaluronate (Gelsyn-3) 16.8 MG/2ML inj 16.8 mgIndications:Primary osteoarthritis of left knee,Primary osteoarthritis of right knee 16.8 mg IX ONCE 07/14/2024 07/14/2024 Ended documented as of this encounter (statuses [...] Progress Notes * Jay Pacheco, DO - 07/14/2024 2:30 PM EDT Angy Shafer [id number] Angy Shafer is a 64 year old female who presents for follow up of bilateral knee injury to [facility] Sports Medicine. Angy Shafer is here unaccompanied HISTORY: Patient last seen by me September 03, 2023 for Gelsyn series TODAY: She reports no change in health status. She would like to restart Gelsyn series. She has had liposuction of her knees. She is also hoping for a TKA in early 2024. Past Medical History: Diagnosis Date GERD (gastroesophageal reflux disease) Other insomnia Sleep apnea, obstructive Type 2 diabetes mellitus without complication, without long-term current use of insulin ([facility]) diet controlled since bariatric surgery Patient Active Problem List Diagnosis Chronic midline back pain Gait disturbance Primary osteoarthritis of both knees H/O unilateral nephrectomy H/O bariatric surgery KEELY on CPAP Type 2 diabetes mellitus without complication, without long-term current use of insulin ([facility]) Acquired hypothyroidism Other insomnia GERD (gastroesophageal reflux disease) Frequent PVCs Long-term current use of benzodiazepine Severe allergy Morbid obesity due to excess calories ([facility]) Diet-controlled type 2 diabetes mellitus ([facility]) Body mass index (BMI) of 40.0 to 44.9 in adult ([facility]) Single kidney Current Outpatient Medications Medication [...] Date/Time HEMOGLOBIN A1C - [facility] 5.7 (H) 03/24/2024 11:01 AM HEMOGLOBIN A1C - [facility] 5.4 07/11/2023 04:06 PM HEMOGLOBIN A1C - [facility] 5.5 01/30/2023 12:47 PM ROS EXAM: Constitional: No change in weight, No weakness, No fatigue, and No fevers, sweats, or chills Physical Exam Gait and Station: slightly antalgic Knee exam, bilateral Effusion: trace on Bilateral Palpation: tenderness to palpation at medial joint line on the Bilateral ROM: R - Flexion - 120 degrees, Extension - 0 degrees L - Flexion - 120 degrees, Extension -0 degrees R- Strength: Extension - 5/5 Flexion - 5/5 L - Strength: Extension - 5/5 Flexion - 5/5 Radiology : Repeat imaging not indicated Assessment and Plan: We will do ultrasound-guided Gelsyn injections. Patient will follow up next week. Please see procedure note. 1) Primary osteoarthritis of left knee (Primary) - sodium hyaluronate (Gelsyn-3) 16.8 MG/2ML inj 16.8 mg - POINT OF CARE US MAJOR JOINT INJECTION, ORTHO - sodium hyaluronate (Gelsyn-3) 16.8 MG/2ML inj 16.8 mg Primary osteoarthritis of right knee - sodium hyaluronate (Gelsyn-3) 16.8 MG/2ML inj 16.8 mg - POINT OF CARE US MAJOR JOINT INJECTION, ORTHO - sodium hyaluronate (Gelsyn-3) 16.8 MG/2ML inj 16.8 mg Jay Pacheco, DO Primary Care Sports Medicine Orthopaedics [address] [address] This chart was completed in part utilizing [employer] Speech Voice Recognition Software. Grammatical errors, random [...] Pacheco DO Sports Medicine Primary Care Orthopaedics [facility] [address] [facility] [address] documented in this encounter Nursing Notes * Manuela Parada MED ASSIST - 07/14/2024 2:50 PM EDT Bilateral knee, 1st gelsyn documented in this encounter Plan of Treatment Upcoming Encounters Date Type Department Care Team (Late st Contact Info) Description 07/14/2024 3:30 PM EDT Laboratory Laboratory, [facility] [address] [facility] [place] [address] Ashlee Reyna [address] [place] [address] [employer] Other*[id number]; Long-term current use of benzodiazepine; Type 2 diabetes mellitus without complication, without long-term current use of insulin ([facility]); Diet-controlled type 2 diabetes mellitus ([facility]); Acquired hypothyroidism; KEELY on CPAP; Frequent PVCs; Body mass index (BMI) of 40.0 to 44.9 in adult ([facility]); Gastroesophageal reflux disease, unspecified whether esophagitis present; Dyslipidemia, goal LDL below 70; Single kidney; Anxiety; Gastroesophageal reflux disease with esophagitis without hemorrhage 07/21/2024 2:30 PM EDT Office Visit Orthopaedics [facility] [address] [place] [address] Jay Pacheco, [address] [place] [address] 07/28/2024 2:30 PM EDT Office Visit [facility] [address] [place] [address] Jay Pacheco DO [address] [place] [address] 08/05/2024 3:00 PM EDT Office Visit Nutrition & Weight Management, [facility] [place] [address] Cande Do PA-C [address] [place] [address] 08/05/2024 3:50 PM EDT Nutrition Services Nutrition & Weight Management, [facility] [address] [place] [address] Merissa Shankar RDN [address] [place] [address] 01/01/2025 4:00 PM EDT Cardiac Studies Cardiac Studies, [facility] [address] [place] [address] 01/14/2025 3:30 PM EDT Office Visit Cardiology, [facility] [address] [place] [address] Sonia Farrar CRNP [address] [place] [address] 02/27/2025 4:00 PM EDT Office Visit [facility] [address] [place] [id number] Mine Beverly MD [address] [place] [address] Scheduled Orders Name Type Priority Associated Diagnoses Orde r Schedule POINT OF CARE US MAJOR JOINT INJECTION, ORTHO Medical Imaging Routine Primary osteoarthritis of left knee Primary osteoarthritis of right knee Ordered: 07/14/2024 Scheduled Procedures Name Priority Associated Diagnoses Date/Ti [...] 2024 08/09/2023, 08/09/2022, 08/09/2022 GFR 07/11/2024 07/11/2023, 0804/2023, 01/30/2023, Additional history exists Diabetic Eye Exam 08/06/2024 03/27/2023, , 02/07/2022, Additional history exists Postponed from 03/27/2024 (Other) Diabetic Foot Exam 08/14/2024 08/14/2023, 08/14/2022 HbA1c 09/23/2024 03/24/2024, 06/16, 01/30/2023, Additional history exists Albumin/Creatinine Ratio 03/24/2025 024, 01/30/2023, 01/02/2022 TSH 03/24/2025 03/24/2024, 01/13, 01/02/2022 Lipid Panel 07/11/2028 07/11/2023, 06/16, 01/26/2022 [...] encounter Visit Diagnoses Diagnosis Primary osteoarthritis of left knee- Primary Primary localized osteoarthrosis, lower leg Primary osteoarthritis of right knee Primary localized osteoarthrosis, lower leg [employer] Other*[id number] Long-term current use of benzodiazepine Type 2 [...] esophagitis without hemorrhage documented in this encounter Administered Medications Inactive Administered Medications - up to 3 most recent administrations Medication Order MAR Action Action Date Dose Rate Site sodium hyaluronate (Gelsyn-3) 16.8 MG/2ML inj 16.8 mg 16.8 mg, Intra-Articular, ONCE, On Sun07/14/24 at 1545, For 1 dose Given 07/14/2024 3:08 PM EDT 16.8 mg K nee Right sodium hyaluronate (Gelsyn-3) 16.8 MG/2ML inj 16.8 mg 16.8 mg, Intra-Articular, ONCE, On Sun07/14/24 at 1545, For 1 dose Given 07/14/2024 3:08 PM EDT 16.8 mg K nee Left documented in this encounter Care Teams Automatic Silk Screen Printer Relationship Specialty Start Date End Date Mine Beverly MD [address] [place] [facility] [place] [address] PCP - General Family Medicine 07/12/21 documented as of this encounter
--- OUTSIDE RECORDS SUMMARY | 2024-09-26 11:40 | External Medical Summary ---
Author Name Unknown Address Unknown Organization [id number][place] [place] [address] [facility] [address] Laboratory Report Ordering Provider Test Date Status OSMAN FLOWER 07/14/2024 15:10:09 Final Observation Date Value Abnormality Reference (Units ) Status MYCODE SPECIMEN-SST 07/14/2024 15:10:09 Freezing of extracted DNA, whole blood and/or serum. Final Performing Location [facility] [place] [address] [facility] [address]
--- OUTSIDE RECORDS SUMMARY | 2024-09-26 11:40 | External Medical Summary ---
Author Name Unknown Address Unknown Organization [id number]:[facility] [place] [address] [place] [address] Laboratory Report Ordering Provider Test Date Status ANGELICA HARDING 07/14/2024 15:10:09 Final Observation Date Value Abnormality Reference (Units ) Status BUN 07/14/2024 15:10:09 14 6-20 (mg/dL) Final Creatinine 07/14/2024 15:10:09 0.7 0.5-1.0 (mg/dL) Final Glomerular filtration rate/1.73 sq M.predicted [Volume Rate/Area] in Serum, Plasma or Blood by Creatinine-based formula (CKD-EPI) 07/14/2024 15:10:09 >90 >=60 (mL/min) Final eGFR is calculated based on the CKD-EPI 2020 equation. Sodium 07/14/2024 15:10:09 141 135-146 (m mol/L) Final Potassium 07/14/2024 15:10:09 4.3 3.5-5.1 (m mol/L) Final Cl 07/14/2024 15:10:09 101 98-107 (mm ol/L) Final CO2 07/14/2024 15:10:09 29 22-32 (mmo l/L) Final Anion gap 07/14/2024 15:10:09 11 7-15 (mmol /L) Final Glucose 07/14/2024 15:10:09 86 70-120 (mg /dL) Final Albumin 07/14/2024 15:10:09 4.6 3.8-5.0 (g /dL) Final AST (Aspartate aminotransferase) 07/14/2024 15:10:09 18 10-35 (U/L) Final Alk Phos 07/14/2024 15:10:09 96 35-130 (U/ L) Final Bilirubin, Total 07/14/2024 15:10:09 0.7 <=1 .2 (mg/dL) Final Calcium 07/14/2024 15:10:09 10.2 8.4-10.2 ( mg/dL) Final Protein 07/14/2024 15:10:09 7.2 6.0-8.3 (g /dL) Final ALT (Alanine aminotransferase) 07/14/2024 15:10:09 14 10-35 (U/L) Final Performing Location LAB[facility]ATORY [place] [address] - [address] [facility] [address]
--- OUTSIDE RECORDS SUMMARY | 2024-09-26 11:40 | External Medical Summary | Summary of Care ---
Author Name Unknown Organization [facility] Address [address] [place] [address] Phone [phone] Care Team Providers Care Vp Information Technology Name Role Phone Mine Beverly MD Primary Care Provid er Reason for Visit * Reason Comments Follow Up atorvastatin and Pro tonix will need a new script on file for refills Was feeling bad a few days ago and thought it was a UTI and then the pain went away. Thought it was flank pain but this has since went away and does not know if that was due to bowel issues Still having swelling and having hardness in the area she had removed on her R leg Had an injection and did well, is going to have gel injectionsSometimes will not make it when she has to walk too far of a distance, would like parking plcd Encounter Details Date Type Department Care Team (Late st Contact Info) Description 07/04/2024 3:00 PM EDT Office Visit [facility] [address] [place] [address] Mine Beverly MD [address], [place] [id number] Type 2 diabetes mellitus without complication, without long-term current use of insulin (HCC)*; Long-term current use of benzodiazepine; Diet-controlled type 2 diabetes mellitus (HCC); Acquired hypothyroidism; KEELY on CPAP; Frequent PVCs; Body mass index (BMI) of 40.0 to 44.9 in adult (HCC); Gastroesophageal reflux disease, unspecified whether esophagitis present; Dyslipidemia, goal LDL below 70; Single kidney; Anxiety; Gastroesophageal reflux disease with esophagitis without hemorrhage Allergies Active Allergy Reactions Criticality Noted Date Comments Diphenhydramine Anaphylaxis High 03/12/2019 Shellfish-Derived Products High 2 anaphylaxis documented as of this encounter (statuses as of 07/04/2024) Medications Medication Sig Dispensed Refills Start Date [...] bedtime. Active Gabapentin 300 MG Oral Capsule (Neurontin)Indicati ons:Peripheral polyneuropathy TAKE 1 CAPSULE BY MOUTH AT BEDTIME 90 Capsule 3 01/21/2024 Active EpiPen 2-Caleb 0.3 MG/0.3ML Injection Solution Auto-injectorIndica tions:Severe allergy, initial encounter For a severe reaction: Place orange end against the outer thigh, press firmly, hold in place for 10 seconds and go to the Emergency room. 2 Each 3 02/12/2024 Active Allopurinol 100 MG Oral Tablet (Zyloprim)Indicatio ns:H/O: gout TAKE TWO TABLETS BY MOUTH IN THE MORNING 180 Tablet 3 03/10/2024 Active Levothyroxine Sodium 112 MCG Oral Tablet (Levoxyl)Indication s:Acquired hypothyroidism Take 1 Tablet by mouth daily first thing in the morning. 30 min before other food or meds. 90 Tablet 05/13/2024 Active Famotidine 20 MG Oral Tablet (Pepcid)Indications :Rash and nonspecific skin eruption Take 1 Tablet by mouth in the morning and 1 Tablet before bedtime. 60 Tablet 5 05/15/2024 Active Additional Information Patient taking differently:20 mg OralPRN, Reported on 06/10/2024 Loratadine 10 MG Oral Tablet (Claritin)Indicatio ns:Rash and nonspecific skin eruption Take 1 Tablet by mouth in the morning and 1 Tablet before bedtime. 60 Tablet 3 06/22/2024 Active LORazepam 0.5 MG Oral Tablet (Ativan)Indications :Long-term current use of benzodiazepine,Anxi ety Take 1 Tablet by mouth 2 times a day as needed for Anxiety. 60 Tablet 07/04/2024 Active Atorvastatin Calcium 20 MG Oral Tablet (Lipitor)Indication s:takes in the evening Take 1 Tablet by mouth every other day. 45 Tablet 1 07/04/2024 Active Pantoprazole Sodium 40 MG Oral Tablet Delayed Release (Protonix)Indicatio ns:Gastroesophageal reflux disease with esophagitis without hemorrhage Take 1 Tablet by mouth in the morning and 1 Tablet in the evening. 180 Tablet 3 07/04/2024 Active Pantoprazole Sodium 40 MG Oral Tablet Delayed Release (Protonix)Indicatio ns:Gastroesophageal reflux disease with esophagitis without hemorrhage Take 1 Tablet by mouth in the morning and 1 Tablet in the evening. 180 Tablet 3 08/14/2023 4 Discontinu ed(Refill) Atorvastatin Calcium 20 MG Oral Tablet (Lipitor)Indication s:takes in the evening TAKE 1 TABLET BY MOUTH EVERY OTHER DAY 45 Tablet 1 03/12/2024 4 Discontinu ed(Refill) LORazepam 0.5 MG Oral Tablet (Ativan)Indications :Long-term current use of benzodiazepine Take 1 Tablet by mouth 2 times a day as needed for Anxiety. 60 Tablet 03/24/2024 4 Discontinu ed(Refill) documented as of this encounter (statuses as of 07/04/2024) Active Problems Problem Noted Date Diagnosed Date [...] as of this encounter (statuses as of 07/04/2024) Immunizations Name Administration Dates Next Due COVID-19 [...] Sign Reading Time Taken Comments Blood Pressure 118/80 07/04/2024 2:56 PM EDT Pulse 60 07/04/2024 2:56 PM EDT Temperature 36.7 C (98 F) 07/04/2024 2:56 PM EDT Respiratory Rate 17 07/04/2024 2:56 PM EDT Oxygen Saturation 97% 07/04/2024 2:56 PM EDT Inhaled Oxygen Concentration - - Weight 119.3 kg (262 lb 14.4 oz) 07/04/2024 2:56 PM EDT Height 168 cm (5' 6.14") 07/04/2024 2:56 PM EDT Body Mass Index 42.25 07/04/2024 2:56 PM EDT documented in this encounter Progress Notes * Mine Beverly MD - 07/04/2024 3:12 PM EDT Images from the original note were not included. ASSESSMENT / PLAN: Angy Shafer is a 64 year old female with PMHx h/o gastric sleeve 2020 / h/o unilateral nephrectomy in childhood / diet controlled T2DM / HTN / OA / PVCs on BB / hypothyroidism / GERD / peripheral neuropathy on gabapentin / KEELY on cpap - here for recheck #T2DM Remains well controlled on diet alone [...] 2032 (10 yr recall) Mammograms UTD - Follow Up: Return in about 8 months (around 03/03/2025) for Fasting Labs Soon. | For: Fasting Labs Soon Type 2 diabetes mellitus without complication, without long-term current use of insulin (HCC) (Primary) - HEMOGLOBIN A1C; Future; Expected date: 07/04/2024 - COMPREHENSIVE METABOLIC PANEL; Future; Expected date: 07/04/2024 - LIPID PANEL WITH DIRECT LDL IF TG IS HIGH; Future; Expected date: 07/04/2024 Long-term current use of benzodiazepine - LORazepam 0.5 MG Oral Tablet (Ativan); Take 1 Tablet by mouth 2 times a day as needed for Anxiety. - HEMOGLOBIN A1C; Future; Expected date: 07/04/2024 - COMPREHENSIVE METABOLIC PANEL; Future; Expected date: 07/04/2024 - LIPID PANEL WITH DIRECT LDL IF TG IS HIGH; Future; Expected date: 07/04/2024 Diet-controlled type 2 diabetes mellitus (HCC) - HEMOGLOBIN A1C; Future; Expected date: 07/04/2024 - COMPREHENSIVE METABOLIC PANEL; Future; Expected date: 07/04/2024 - LIPID PANEL WITH DIRECT LDL IF TG IS HIGH; Future; Expected date: 07/04/2024 Acquired hypothyroidism - HEMOGLOBIN A1C; Future; Expected date: 07/04/2024 - COMPREHENSIVE METABOLIC PANEL; Future; Expected date: 07/04/2024 - LIPID PANEL WITH DIRECT LDL IF TG IS HIGH; Future; Expected date: 07/04/2024 KEELY on CPAP - HEMOGLOBIN A1C; Future; Expected date: 07/04/2024 - COMPREHENSIVE METABOLIC PANEL; Future; Expected date: 07/04/2024 - LIPID PANEL WITH DIRECT LDL IF TG IS HIGH; Future; Expected date: 07/04/2024 Frequent PVCs - HEMOGLOBIN A1C; Future; Expected date: 07/04/2024 - COMPREHENSIVE METABOLIC PANEL; Future; Expected date: 07/04/2024 - LIPID PANEL WITH DIRECT LDL IF TG IS HIGH; Future; Expected date: 07/04/2024 Body mass index (BMI) of 40.0 to 44.9 in adult (HCC) - HEMOGLOBIN A1C; Future; Expected date: 07/04/2024 - COMPREHENSIVE METABOLIC PANEL; Future; Expected date: 07/04/2024 - LIPID PANEL WITH DIRECT LDL IF TG IS HIGH; Future; Expected date: 07/04/2024 Gastroesophageal reflux disease, unspecified whether esophagitis present - HEMOGLOBIN A1C; Future; Expected date: 07/04/2024 - COMPREHENSIVE METABOLIC PANEL; Future; Expected date: 07/04/2024 - LIPID PANEL WITH DIRECT LDL IF TG IS HIGH; Future; Expected date: 07/04/2024 Dyslipidemia, goal LDL below 70 - Atorvastatin Calcium 20 MG Oral Tablet (Lipitor); Take 1 Tablet by mouth every other day. - HEMOGLOBIN A1C; Future; Expected date: 07/04/2024 - COMPREHENSIVE METABOLIC PANEL; Future; Expected date: 07/04/2024 - LIPID PANEL WITH DIRECT LDL IF TG IS HIGH; Future; Expected date: 07/04/2024 Single kidney - HEMOGLOBIN A1C; Future; Expected date: 07/04/2024 - COMPREHENSIVE METABOLIC PANEL; Future; Expected date: 07/04/2024 - LIPID PANEL WITH DIRECT LDL IF TG IS HIGH; Future; Expected date: 07/04/2024 Anxiety - LORazepam 0.5 MG Oral Tablet (Ativan); Take 1 Tablet by mouth 2 times a day as needed for Anxiety. - HEMOGLOBIN A1C; Future; Expected date: 07/04/2024 - COMPREHENSIVE METABOLIC PANEL; Future; Expected date: 07/04/2024 - LIPID PANEL WITH DIRECT LDL IF TG IS HIGH; Future; Expected date: 07/04/2024 Gastroesophageal reflux disease with esophagitis without hemorrhage - Pantoprazole Sodium 40 MG Oral Tablet Delayed Release (Protonix); Take 1 Tablet by mouth in the morning and 1 Tablet in the evening. - HEMOGLOBIN A1C; Future; Expected date: 07/04/2024 - COMPREHENSIVE METABOLIC PANEL; Future; Expected date: 07/04/2024 - LIPID PANEL WITH DIRECT LDL IF TG IS HIGH; Future; Expected date: 07/04/2024 - VITAMIN B12; Future; Expected date: 07/04/2024 Follow Up: Return in about 8 months (around 03/03/2025) for Fasting Labs Soon. | For: Fasting Labs Soon If needed, prefers contact by: Ok to leave message on phone: SUBJECTIVE: Nursing Notes: Aleksandra Mcbride LPN 07/04/24 0549 Signed The patient has been properly identified by confirmation of name and date of . Chief Complaint Patient presents with Follow Up atorvastatin and Protonix will need a new script on file for refills Was feeling bad a few days ago and thought it was a UTI and then the pain went away. Thought it wasflank pain but this has since went away and does not know if that was due to bowel issues Still having swelling and having hardness in the area she had removed on her R leg Had an injection and did well, is going to have gel injections Sometimes will not make it when she has to walk too far of a distance, would like parking plcd HPI: Angy Shafer is a 64 year old female. Here for recheck. R knee planned surgery in Oct Healing from liposuction on bilateral medial thighs Plan for starting gelsyn injections Reviewed sources -06/10/24 - Cardiology - functional capacity unchanged - TTE to reeval ao v sclerosis 06/05/24 - [facility]? - R knee pain 04/15/24 - ER visit at request of plastic surgeon to r/o DVT d/t postop cellulitis and pain - diagnosed w hematomas on u/s - hi home. Patient Active Problem List Diagnosis Chronic midline back pain Gait disturbance Primary osteoarthritis of both knees H/O unilateral nephrectomy H/O bariatric surgery KEELY on CPAP Type 2 diabetes mellitus without complication, without long-term current use of insulin ([facility]) Acquired hypothyroidism Other insomnia GERD (gastroesophageal reflux disease) Frequent PVCs Long-term current use of benzodiazepine Severe allergy Morbid obesity due to excess calories ([facility]) Diet-controlled type 2 diabetes mellitus ([facility]) Body mass index (BMI) of 40.0 to 44.9 in adult ([facility]) Single kidney Current Outpatient Medications [...] day. BiPAP every night at bedtime . 20/16 Polyethylene Glycol 3350 17 GM Oral Packet [...] facility-administered medications for this visit. OBJECTIVE: BP 118/80 | Pulse 60 | Temp 36.7 C (98 F) | Resp 17 | Ht 1.68 m (5' 6.14") | Wt 119.3 kg (262 lb 14.4 oz) | SpO2 97% | BMI 42.25 kg/m | BSA 2.36 m Vitals reviewed and is normotensive / afebrile / and not tachycardic General: No acute distress. Neuro: Alert Pleasant & interactive. Respiratory: Good inspiratory effort, no labored breathing. CTAB CV: RRR no M R G HEENT: Conjunctivae appear clear. No swelling noted face or lips. Skin: No rash visible on exposed skin areas, normal coloration & appears dry. Psych: Normal affect. Fluent speech. Mine Beverly MD [facility], [address] [phone] There are no Patient Instructions on file for this visit. documented in this encounter Nursing Notes * Aleksandra Mcbride LPN - 07/04/2024 3:05 PM EDT The patient has been properly identified by confirmation of name and date of . Chief Complaint Patient presents with Follow Up atorvastatin and Protonix will need a new script on file for refills Was feeling bad a few days ago and thought it was a UTI and then the pain went away. Thought it wasflank pain but this has since went away and does not know if that was due to bowel issues Still having swelling and having hardness in the area she had removed on her R leg Had an injection and did well, is going to have gel injections Sometimes will not make it when she has to walk too far of a distance, would like parking plcd documented in this encounter Plan of Treatment Upcoming Encounters Date Type Department Care Team (Late st Contact Info) Description 07/11/2024 11:40 AM EDT Office Visit [facility] [address] [place] [phone] Diamond Kwong, DO [address] [place] [address] 07/14/2024 2:30 PM EDT Office Visit Orthopaedics [facility] [address] [place] [address] Jay Pacheco, DO [address] [place] [address] 07/21/2024 2:30 PM EDT Office Visit Orthopaedics [facility] [address] [facility] [address] Jay Pacheco, DO [address] [place] [address] 07/28/2024 2:30 PM EDT Office Visit Orthopaedics [facility] [address] [place] [address] Jay Pacheco, DO [address] [place] [address] 08/05/2024 3:00 PM EDT Office Visit Nutrition & Weight Management, [facility] [address] [facility] [place] [address] Cande Do PA-C [facility] [place] [address] 08/05/2024 3:50 PM EDT Nutrition Services Nutrition & Weight Management, [facility] [address] [facility] [place] [address] Merissa Shankar RDN [facility] [place] [address] 01/01/2025 4:00 PM EDT Cardiac Studies Cardiac Studies, [facility] [address] [facility] [place] [address] 01/14/2025 3:30 PM EDT Office Visit Cardiology, [facility] [address] [facility] [place] [address] Sonia Farrar CRNP [address] [place] [address] 02/27/2025 4:00 PM EDT Office Visit [address], [place] [phone] Mine Beverly MD [address] [place] [address] Scheduled Orders Name Type Priority Associated Diagnoses Orde r Schedule HEMOGLOBIN A1C Lab Routine Long-term current use of benzodiazepine Type 2 diabetes mellitus without complication, without long-term current use of insulin ([facility]) Diet-controlled type 2 diabetes mellitus (HCC) Acquired hypothyroidism KEELY on CPAP Frequent PVCs Body mass index (BMI) of 40.0 to 44.9 in adult ([facility]) Gastroesophageal reflux disease, unspecified whether esophagitis present Dyslipidemia, goal LDL below 70 Single kidney Anxiety Gastroesophageal reflux disease with esophagitis without hemorrhage Expected: 07/04/2024 (Approximate), Expires: 07/04/2025 COMPREHENSIVE METABOLIC PANEL Lab Routine Long-term current use of benzodiazepine Type 2 diabetes mellitus without complication, without long-term current use of insulin (HCC) Diet-controlled type 2 diabetes mellitus (HCC) Acquired hypothyroidism KEELY on CPAP Frequent PVCs Body mass index (BMI) of 40.0 to 44.9 in adult ([facility]) Gastroesophageal reflux disease, unspecified whether esophagitis present Dyslipidemia, goal LDL below 70 Single kidney Anxiety Gastroesophageal reflux disease with esophagitis without hemorrhage Expected: 07/04/2024 (Approximate), Expires: 07/04/2025 LIPID PANEL WITH DIRECT LDL IF TG [...] Gastroesophageal reflux disease with esophagitis without hemorrhage Expected: 07/04/2024, Expires: 07/04/2025 VITAMIN B12 Lab Routine Gastroesophageal reflux disease with esophagitis without hemorrhage Expected: 07/04/2024 (Approximate), Expires: 07/04/2025 Scheduled Procedures Name Priority Associated Diagnoses Date/Ti [...] as of this encounter Visit Diagnoses Diagnosis Type 2 diabetes mellitus without complication, without long-term current use of insulin (HCC)- Primary Long-term current use of benzodiazepine Diet-controlled type 2 diabetes mellitus (HCC) Type [...] hemorrhage documented in this encounter Care Teams Vp Information Technology Relationship Specialty Start Date End Date Mine Beverly MD [address] [place] [address] PCP - General Family Medicine 07/12/21 documented as of this encounter
--- OUTSIDE RECORDS SUMMARY | 2024-09-26 11:40 | External Medical Summary ---
Author Name Unknown Address Unknown Organization K01:[facility] [place] [address] [facility] [place] [address] Laboratory Report Ordering Provider Test Date Status GENARO HARDINGO 07/14/2024 15:10:09 Final Observation Date Value Abnormality Reference (Units ) Status Triglyceride 07/14/2024 15:10:09 69 <=174 ( mg/dL) Final Triglyceride Reference Range s (mg/dL):
<150 Acceptable
150-174 Borderline high
175-499 High
>=500 Very high Cholesterol 07/14/2024 15:10:09 184 <200 (mg /dL) Final Total Cholesterol Reference Ranges (mg/dL):
<200 Desirable
200-239 Borderline high
>=240 High HDL 07/14/2024 15:10:09 76 >49 (mg/dL ) Final HDL Cholesterol Reference Ra nges (mg/dL):
>=60 High (Desirable)
<50 Low (Undesirable) For Females
<40 Low (Undesirable) For Males NON-HDL CHOLESTEROL 07/14/2024 15:10:09 108 <=159 (mg/dL) Final Non-HDL Cholesterol Referenc e Range (mg/dL):
<100 Target level for high risk ASCVD patient
<130 Optimal for general population
130-159 Near optimal for general population
160-189 Borderline High
190-219 High
>=220 Very High LDL, (calculated) 07/14/2024 15:10:09 94 <= 129 (mg/dL) Final LDL Cholesterol Reference Ra nges (mg/dL):
<70 Target level for high risk ASCVD patient
<100 Optimal for general population
100-129 Near optimal for general population
130-159 Borderline high
160-189 High
>=190 Very high Performing Location [facility] [place] [address] [facility] [address]
--- OUTSIDE RECORDS SUMMARY | 2024-09-26 11:40 | External Medical Summary | Summary of Care ---
Author Name Unknown Organization [facility] Address [address] [place] [address] Phone [phone] Care Team Providers Care Head Of Strategy Name Role Phone Mine Beverly MD Primary Care Provid er Encounter Details Date Type Department Care Team (Late st Contact Info) Description 07/08/2024 Orders Only PATIENT PORTAL DO NOT DELETE THIS DEPT USED BY [place] [id number] Allergies Active Allergy Reactions Criticality Noted Date Comments Diphenhydramine Anaphylaxis High 03/12/2019 Shellfish-Derived Products High 2 anaphylaxis documented as of this encounter (statuses as of 07/08/2024) Medications Medication Sig Dispensed Refills Start Date [...] as of this encounter (statuses as of 07/08/2024) Active Problems Problem Noted Date Diagnosed Date [...] as of this encounter (statuses as of 07/08/2024) Immunizations Name Administration Dates Next Due COVID-19 [...] AM EDT Office Visit [facility] [address] [place] [phone] Diamond Kwong, DO [address] [place] [address] 07/14/2024 2:30 PM EDT Office Visit [facility] [address] [place] [address] Jay Pacheco, DO [address] [place] [address] 07/21/2024 2:30 PM EDT Office Visit [facility] [address] [place] [address] Jay Pacheco, DO [address] [place] [address] 07/28/2024 2:30 PM EDT Office Visit [facility] [address] [place] [address] Jay Pacheco, DO [address] [place] [address] 08/05/2024 3:00 PM EDT Office Visit Nutrition & Weight Management, [facility] [address] [place] [address] Cande Do PA-C [address] [place] [address] 08/05/2024 3:50 PM EDT Nutrition Services Nutrition & Weight Management, [facility] [address] [facility] [place] [address] Merissa Shankar RDN [address] [facility] [place] [address] 01/01/2025 4:00 PM EDT Cardiac Studies Cardiac Studies, [facility] [address] [facility] [place] [address] 01/14/2025 3:30 PM EDT Office Visit Cardiology, [facility] [address] [facility] [place] [address] Sonia Farrar CRNP [address] [facility] [place] [address] 02/27/2025 4:00 PM EDT Office Visit [facility] [address] [place] [address] Mine Beverly MD [address] [place] [address] Scheduled Procedures Name Priority Associated Diagnoses Date/Ti [...] 01/30/2023, 01/02/2022 TSH 03/24/2025 03/24/2024, 0405/2023, 01/02/2022 Lipid Panel 07/11/2028 07/11/2023, 06/16, 01/26/2022 [...] filedocumented as of this encounter Care Teams Head Of Strategy Relationship Specialty Start Date End Date Mine Beverly MD [address] [place] [address] PCP - General Family Medicine 07/12/21 documented as of this encounter
--- OUTSIDE RECORDS SUMMARY | 2024-09-26 11:40 | External Medical Summary | Summary of Care ---
Author Name Unknown Organization [facility] Address [address] [place] [address] Phone [phone] Care Team Providers Care Keycase Assembler Name Role Phone Meaghan Dominguez MD Primary Care Provid er Reason for Visit * Reason Onset Date Comments Medication Refill 05/15/2024 Encounter Details Date Type Department Care Team (Late st Contact Info) Description 05/15/2024 Refill [facility] [address] [place] [facility] [place] [phone] Meaghan Dominguez MD [address], [place] [id number] Rash and nonspecific skin eruption Allergies Active Allergy Reactions Criticality Noted Date Comments Diphenhydramine Anaphylaxis High 03/12/2019 Shellfish-Derived Products High 2 anaphylaxis documented as of this encounter (statuses as of 05/15/2024) Medications Medication Sig Dispensed Refills Start Date [...] 0.5 Tablets by mouth in the morning. Take 1 tab by mouth every other day. . Active Biotin 10 MG Oral Capsule Take [...] Oral Packet Take 1 Packet by mouth in the morning. Active LORazepam 0.5 MG Oral Tablet Take 1 Tablet by mouth. Active Melatonin 5 MG Oral Capsule Take 1 Capsule by mouth at bedtime. Active Pantoprazole Sodium 40 MG Oral Tablet Delayed Release (Protonix)Indication s:Gastroesophageal reflux disease with esophagitis without hemorrhage Take 1 Tablet by mouth in the morning and 1 Tablet in the evening. 180 Tablet 3 08/14/2023 Active Montelukast Sodium 10 MG Oral Tablet (Singulair)Indicatio ns:Mild intermittent extrinsic asthma without complication Take 1 Tablet by mouth at bedtime. 90 Tablet 3 12/31/2023 Active Gabapentin 300 MG Oral Capsule (Neurontin)Indicatio ns:Peripheral polyneuropathy TAKE 1 CAPSULE BY MOUTH AT BEDTIME 90 Capsule 3 01/21/2024 Active buPROPion HCl ER (SR) 150 MG Oral Tablet Extended Release 12 Hour (Wellbutrin SR) Take 1 tab by mouth once a day for 1 week then take 1 tab twice a day (morning & late afternoon) 60 Tablet 2 01/22/2024 Active Naltrexone HCl 50 MG Oral Tablet (Revia) Take 1/2 tab by mouth once a day for 1 week then take 1/2 tab twice a day (morning & late afternoon) 30 Tablet 2 01/22/2024 Active EpiPen 2-Caleb 0.3 MG/0.3ML Injection Solution Auto-injectorIndicat ions:Severe allergy, initial encounter For a severe reaction: Place orange end against the outer thigh, press firmly, hold in place for 10 seconds and go to the Emergency room. 2 Each 3 02/12/2024 Active Allopurinol 100 MG Oral Tablet (Zyloprim)Indication s:H/O: gout TAKE TWO TABLETS BY MOUTH IN THE MORNING 180 Tablet 3 03/10/2024 Active Atorvastatin Calcium 20 MG Oral Tablet (Lipitor)Indications :takes in the evening TAKE 1 TABLET BY MOUTH EVERY OTHER DAY 45 Tablet 1 03/12/2024 Active LORazepam 0.5 MG Oral Tablet (Ativan)Indications: Long-term current use of benzodiazepine Take 1 Tablet by mouth 2 times a day as needed for Anxiety. 60 Tablet 03/24/2024 Active Levothyroxine Sodium 112 MCG Oral Tablet (Levoxyl)Indications :Acquired hypothyroidism Take 1 Tablet by mouth daily first thing in the morning. 30 min before other food or meds. 90 Tablet 05/13/2024 Active Loratadine 10 MG Oral Tablet (Claritin)Indication s:Rash and nonspecific skin eruption Take 1 Tablet by mouth in the morning and 1 Tablet before bedtime. 60 Tablet 05/13/2024 Active Famotidine 20 MG Oral Tablet (Pepcid)Indications: Rash and nonspecific skin eruption Take 1 Tablet by mouth in the morning and 1 Tablet before bedtime. 60 Tablet 5 05/15/2024 Active Famotidine 20 MG Oral Tablet (Pepcid)Indications: Rash and nonspecific skin eruption Take 1 Tablet by mouth in the morning and 1 Tablet before bedtime. 60 Tablet 03/24/2024 Discontinue d(Refill) documented as of this encounter (statuses as of 05/15/2024) Active Problems Problem Noted Date Diagnosed Date [...] as of this encounter (statuses as of 05/15/2024) Immunizations Name Administration Dates Next Due COVID-19 [...] encounter Miscellaneous Notes * Telephone Encounter - Meaghan Dominguez MD - 05/15/2024 5:58 PM EDT Signed Prescriptions: Disp Refills Famotidine 20 MG Oral Tablet (Pepcid) 60 Tab*5 Sig: Take 1 Tablet by mouth in the morning and 1 Tablet before bedtime. Authorizing Provider: MEAGHAN DOMINGUEZ * Telephone Encounter - Sharron Ruiz RP - 05/15/2024 1:23 PM EDT Pending Prescriptions: Disp Refills Famotidine 20 MG Oral Tablet (Pepcid) 60 Tab*0 Sig: Take 1 Tablet by mouth in the morning and 1 Tablet before bedtime. * Telephone Encounter - Sharron Ruiz RPh - 05/15/2024 1:23 PM EDT Forwarding to provider for further evaluation. Please approve and authorize additional refills if you would like patient to continue this medication. Thank you, Sharron Ruiz, PharmD Clinical Pharmacist [facility] 05/15/24 1:23 PM [phone] documented in this encounter Plan of Treatment Upcoming Encounters Date Type Department Care Team (Late st Contact Info) Description 06/10/2024 3:30 PM EDT Office Visit Cardiology, [facility] [address] [phone] Sonia Farrar CRNP [address] [address] 07/04/2024 3:00 PM EDT [facility] [address] [facility] [phone] Meaghan Dominguez MD [address], [place] [phone] 07/11/2024 11:40 AM EDT Office Visit Sleep Disorders Ctr [facility] [address] [place] [phone] Diamond Kwong DO [address] [place] [address] 08/05/2024 3:00 PM EDT Office Visit Nutrition & Weight Management, [facility] [address] [place] [address] Cande Do PA-C [address] [place] [address] 08/05/2024 3:50 PM EDT Nutrition Services Nutrition & Weight Management, [facility] [address] [place] [address] Merissa Shankar RDN [address] [place] [address] Scheduled Procedures Name Priority Associated Diagnoses Date/Ti me COLONOSCOPY FLEXIBLE PROXIMA L DIAGNOSTIC Recall Screening for colon cancer ROBOTIC ARTHROPLASTY KNEE TOTAL Knee osteoarthritis Health Maintenance Due Date Last Done Comments Pneumococcal Vaccine: Pediatrics (0 to 5 Years) and At-Risk Patients (6 to 64 Years) (1 of 2 - PCV) 1967 HIV Screening 1976 Hepatitis C Screening 1979 DTaP,Tdap,and Td Vaccines (1 - Tdap) 1980 Pap Smear 1982 Cervical Cancer Screening 1991 HPV/Co-Test 1991 Cologuard 2006 Fecal Occult Blood Test 2006 Sigmoidoscopy 2006 Zoster Vaccines (1 of 2) 2011 Depression Screening 05/19/2023 05/19/2022 COVID-19 Vaccine ( season) 2023 08/09/2022, 03/22/2022, 09/09/2021, Additional history exists Diabetic Eye Exam 03/27/2024 03/27/2023, , 02/07/2022, Additional history exists Mammogram 05/23/2024 05/23/2023, 05/16, 12/16/2019 Influenza Vaccine (FLU shot) (#1) 2024 08/09/2023, 08/09/2022, 08/09/2022 GFR 07/11/2024 07/11/2023, 08/0 04/2023, 01/30/2023, Additional history exists Diabetic Foot Exam 08/14/2024 08/14/2023, 08/14/2022 HbA1c [...] as of this encounter Visit Diagnoses Diagnosis Rash and nonspecific skin eruption Rash and other nonspecific skin eruption documented in this encounter Care Teams Keycase Assembler Relationship Specialty Start Date End Date Meaghan Dominguez MD [address] [place] [address] PCP - General Family Medicine 07/12/21 documented as of this encounter
--- OUTSIDE RECORDS SUMMARY | 2024-09-26 11:40 | External Medical Summary ---
Author Name Unknown Address Unknown Organization K01:[facility] - [address] [facility] [address] Laboratory Report Ordering Provider Test Date Status OSMAN FLOWER 07/14/2024 15:10:09 Final Observation Date Value Abnormality Reference (Units ) Status MYCODE SPECIMEN-SST 07/14/2024 15:10:09 Freezing of extracted DNA, whole blood and/or serum. Final Performing Location [facility] - [address] [facility] [address]
--- OUTSIDE RECORDS SUMMARY | 2024-09-26 11:40 | External Medical Summary | Summary of Care ---
Author Name Unknown Organization [facility] Address [address] [place] [address] Phone [phone] Care Team Providers Care Paper Baling Machine Operator Name Role Phone Mine Beverly MD Primary Care Provid er Reason for Visit * Reason Comments Follow Up Sleep Apnea Encounter Details Date Type Department Care Team (Late st Contact Info) Description 07/11/2024 11:40 AM EDT Office Visit Sleep Disorders Ctr [facility] [address] [place] [phone] Diamond Kwong [address] [place] [phone] Obstructive sleep apnea* Allergies Active Allergy Reactions Criticality Noted Date Comments Diphenhydramine Anaphylaxis High 03/12/2019 Shellfish-Derived Products High 2 anaphylaxis documented as of this encounter (statuses as of 07/11/2024) Medications Medication Sig Dispensed Refills Start Date [...] as of this encounter (statuses as of 07/11/2024) Active Problems Problem Noted Date Diagnosed Date [...] as of this encounter (statuses as of 07/11/2024) Immunizations Name Administration Dates Next Due COVID-19 [...] Sign Reading Time Taken Comments Blood Pressure 122/70 07/11/2024 11:34 AM EDT Pulse 62 07/11/2024 11:34 AM EDT Temperature 36.4 C (97.6 F) 07/11/2024 11:34 AM E DT Respiratory Rate 16 07/11/2024 11:34 AM EDT Oxygen Saturation 98% 07/11/2024 11:34 AM EDT Inhaled Oxygen Concentration - - Weight 117.5 kg (259 lb) 07/11/2024 11:34 AM EDT Height 167.6 cm (5' 6") 07/11/2024 11:34 AM EDT Body Mass Index 41.8 07/11/2024 11:34 AM EDT documented in this encounter Progress Notes * Diamond Kwong, - 07/11/2024 12:09 PM EDT Sleep Medicine Follow-Up HISTORY: Angy Shafer is a 64 year old female for follow up of KEELY. Initially diagnosed with KEELY after presenting with loud snoring, feeling "horrible" upon awakening. Initial split-night PSG 06/06/2002: AHI 18.5 (as reported within the 2010 PAP titration study report). Initially treated with CPAP. She had lost some weight then felt she no longer needed the CPAP for a while, then gained weight again. PAP titration 04/08/2010: titrated to BiPAP 24/20 cwp. She has subsequently had gastric sleeve surgery January 2021 and subsequent weight loss of 85 lbs (down 105-110 lbs total from her heaviest weight). Using autoBiPAP 5-17, PS 5 cmH2O. Pt had messaged in February about humidifier malfunction -- she turned it back up to 5, and it seems to be working again. Subjective PAP adherence: typically excellent, however: She has sometimes been accidentally fallingasleep without BiPAP on (unintentional), when she is reading or playing a game on her phone which is relaxing and helps her get to sleep. She has been falling asleep quickly, and sometimes will wake up after a couple hours or more of sleeping without the BiPAP; she feels "horrible" if she has slept part of the night without it. Sleep refreshing on PAP: yes Snoring on PAP: not that she is aware of Daytime sleepiness: no Drowsy driving: no Interface: nasal mask Dry nose or dry mouth: no Use humidifier? yes Aerophagia: no Morning headaches: not if she has had BiPAP on. She will wake up with a headache if she falls asleep without PAP. Recent weight change: stable lately [place] Sleepiness Scale: 2 Travel Screening Question 07/11/2024 11:23 AM EDT - Filed by Patient Do you have any of the following new or worsening symptoms? None of these Have you recently been in contact with someone who was sick? No / Unsure [place] Sleepiness Scale Question 07/11/2024 11:29 AM EDT - Filed by Patient What is the chance you will doze off in the following situation? Sitting and reading No chance of dozing Watching TV No chance of dozing Sitting inactive in a public place, such as a theater or meeting No chance of dozing As a passenger in a car for an hour without a break Slight chance of dozing Lying down to rest in the afternoon when circumstances permit Slight chance of dozing When sitting and talking to someone No chance of dozing When sitting quietly after lunch without alcohol No chance of dozing In a car, while stopped for a few minutes in traffic No chance of dozing Score (range: 0 - 24) 2 Flu Vaccine Questionnaire Question 07/11/2024 11:29 AM EDT - Filed by Patient Get your flu shot at your upcoming appointment. Please select one of the options below. I would like to discuss this with my clinician BiPAP Compliance: Report date: 07/08/24 % total days used: 100% % days used > 4 hours: 87% Average hours per day used: 6h 26m Large leak: occasional AHI: 0.7 /hr Median pressure: 10.9/5.9 cmH2O 95%ile pressure: 12.2/7.2 cmH2O Pressure settin-17, PS 5 cmH2O Equipment: DME Provider is Junaid [employer]ses [employer]. Patient Active Problem List Diagnosis Chronic midline back pain Gait disturbance Primary osteoarthritis of both knees H/O unilateral nephrectomy H/O bariatric surgery KEELY on CPAP Type 2 diabetes mellitus without complication, without long-term current use of insulin ([facility]) Acquired hypothyroidism Other insomnia GERD (gastroesophageal reflux disease) Frequent PVCs Long-term current use of benzodiazepine Severe allergy Morbid obesity due to excess calories ([facility]) Diet-controlled type 2 diabetes mellitus ([facility]) Body mass index (BMI) of 40.0 to 44.9 in adult ([facility]) Single kidney Current Outpatient Medications Medication Sig Dispense Refill Atorvastatin Calcium 20 MG Oral Tablet (Lipitor) Take 1 Tablet by mouth every other day. 45 Tablet 1 LORazepam 0.5 MG Oral Tablet (Ativan) Take 1 Tablet by mouth 2 times a day as needed for Anxiety. 60 Tablet 0 Pantoprazole Sodium 40 MG Oral Tablet Delayed Release (Protonix) Take 1 Tablet by mouth in the morning and 1 Tablet in the evening. 180 Tablet 3 Loratadine 10 MG Oral Tablet (Claritin) Take 1 Tablet by mouth in the morning and 1 Tablet before bedtime. 60 Tablet 3 Famotidine 20 MG Oral Tablet (Pepcid) Take 1 Tablet by mouth in the morning and 1 Tablet before bedtime. (Patient taking differently: Take 1 Tablet by mouth as needed.) 60 Tablet 5 Levothyroxine Sodium 112 MCG Oral Tablet (Levoxyl) Take 1 Tablet by mouth daily first thing in the morning. 30 min before other food or meds. 90 Tablet 0 Allopurinol 100 MG Oral Tablet (Zyloprim) TAKE TWO TABLETS BY MOUTH IN THE MORNING 180 Tablet 3 EpiPen 2-Caleb 0.3 MG/0.3ML Injection Solution Auto-injector For a severe reaction: Place orange end against the outer thigh, press firmly, hold in place for 10 seconds and go to the Emergency room. 2 Each 3 Gabapentin 300 MG Oral Capsule (Neurontin) TAKE 1 CAPSULE BY MOUTH AT BEDTIME 90 Capsule 3 Melatonin 5 MG Oral Capsule Take 1 Capsule by mouth at bedtime. Polyethylene Glycol 3350 17 GM Oral Packet Take 1 Packet by mouth as needed. BiPAP every night at bedtime . 20/16 Biotin 10 MG Oral Capsule Take 1 Capsule by mouth every other day. Take 1 tab by mouth every other day Vitamin B-12 1000 MCG Oral Tablet Take 0.5 Tablets by mouth in the morning. Vitamin C 250 MG Oral Tablet (Ascorbic Acid) Take 1 Tablet by mouth in the morning. Vitamin D3 50 MCG (2000 UT) Oral Capsule Take 1 Capsule by mouth in the morning. Zinc 50 MG Oral Tablet Take 1 Tablet by mouth every other day. Take 1 Tab by mouth every other day. Aspirin 81 MG Oral Tablet Delayed Release Take 2 Tablets by mouth in the morning. Docusate Sodium 250 MG Oral Capsule Take 1 Capsule by mouth. One-Daily Multi Vitamins Oral Tablet Take 1 Tablet by mouth. No current facility-administered medications for this visit. PHYSICAL EXAM: Filed Vitals: 07/11/24 1134 BP: 122/70 Pulse: 62 Resp: 16 Temp: 36.4 C (97.6 F) TempSrc: Tympanic SpO2: 98% Weight: 117.5 kg (259 lb) Height: 1.676 m (5' 6") Body mass index is 41.8 kg/m. General: alert, no acute distress Head: NC/AT Lungs: normal respiratory effort Neuro: speech clear and appropriate ASSESSMENT/PLAN: Obstructive sleep apnea - good adherence; encourage continued use of BiPAP with all sleep - mask fitting for [id number] nasal interface so she can put PAP on with glasses, to more reliably get the mask on prior to falling asleep. - excellent efficacy of therapy; continue autoBiPAP at current setting 5-17, PS 5 cmH2O - DME: [facility] - Routine cleaning and change of supplies as needed. - Continue to avoid driving when feeling sleepy/drowsy. Follow-up with Sleep Medicine PRN -- she notes anticipated move [id number] in May of 2025; discussed to establish care for ongoing sleep apnea management in her new location at that time. Diamond Kwong DO documented in this encounter Nursing Notes * Angy Watson LPN - 07/11/2024 11:36 AM EDT Chief Complaint Patient presents with Follow Up Sleep Apnea Bipap DME: [facility] Travel Screening Question 07/11/2024 11:23 AM EDT - Filed by Patient Do you have any of the following new or worsening symptoms? None of these Have you recently been in contact with someone who was sick? No / Unsure [place] Sleepiness Scale Question 07/11/2024 11:29 AM EDT - Filed by Patient What is the chance you will doze off in the following situation? Sitting and reading No chance of dozing Watching TV No chance of dozing Sitting inactive in a public place, such as a theater or meeting No chance of dozing As a passenger in a car for an hour without a break Slight chance of dozing Lying down to rest in the afternoon when circumstances permit Slight chance of dozing When sitting and talking to someone No chance of dozing When sitting quietly after lunch without alcohol No chance of dozing In a car, while stopped for a few minutes in traffic No chance of dozing Score (range: 0 - 24) 2 Flu Vaccine Questionnaire Question 07/11/2024 11:29 AM EDT - Filed by Patient Get your flu shot at your upcoming appointment. Please select one of the options below. I would like to discuss this with my clinician documented in this encounter Plan of Treatment Upcoming Encounters Date Type Department Care Team (Late st Contact Info) Description 07/14/2024 2:30 PM EDT Office Visit Orthopaedics [facility] [address] [facility] [place] [address] Jay Pacheco, [address] [facility] [place] [address] 07/19/2024 10:30 AM EDT Laboratory Laboratory, [facility] [address] [place] [phone] Ashlee Reyna [address] [place] [address] 07/21/2024 2:30 PM EDT Office Visit Orthopaedics [facility] [address] [facility] [place] [address] Jay Pacheco, DO [address] [place] [address] 07/28/2024 2:30 PM EDT Office Visit Orthopaedics [facility] [address] [facility] [place] [address] Jay Pacheco, DO [address] [place] [address] 08/05/2024 3:00 PM EDT Office Visit Nutrition & Weight Management, [facility] [address] [facility] [place] [address] Cande Do PA-C [address] [facility] [place] [address] 08/05/2024 3:50 PM EDT Nutrition Services Nutrition & Weight Management, [facility] [address] [facility] [place] [address] Merissa Shankar RDN [address] [facility] [place] [address] 01/01/2025 4:00 PM EDT Cardiac Studies Cardiac Studies, [facility] [address] [facility] [place] [address] 01/14/2025 3:30 PM EDT Office Visit Cardiology, [facility] [address] [facility] [place] [address] Sonia Farrar CRNP [address] [place] [address] 02/27/2025 4:00 PM EDT Office Visit [address] [phone] Mine Beverly [facility] [address] [facility] [place] [address] Scheduled Procedures Name Priority Associated Diagnoses [...] as of this encounter Visit Diagnoses Diagnosis Obstructive sleep apnea- Primary Obstructive sleep apnea (adult) (pediatric) documented in this encounter Care Teams Paper Baling Machine Operator Relationship Specialty Start Date End Date Mine Beverly MD [address] [place] [address] PCP - General Family Medicine 07/12/21 documented as of this encounter
--- OUTSIDE RECORDS SUMMARY | 2024-09-26 11:40 | External Medical Summary | Summary of Care ---
Author Name Unknown Organization [facility] Address [address] [place] [address] Phone [phone] Care Team Providers Care Repairer And Checker Name Role Phone Mine Beverly MD Primary Care Provid er Reason for Visit * Reason Comments Outpatient Testing Encounter Details Date Type Department Care Team (Late st Contact Info) Description 04/16/2024 11:20 AM EDT Laboratory Laboratory, [facility] [address] [place] [phone] [facility] [address], [place] [id number] Cellulitis Allergies Active Allergy Reactions Criticality Noted Date Comments Diphenhydramine Anaphylaxis High 03/12/2019 Shellfish-Derived Products High 2 anaphylaxis documented as of this encounter (statuses as of 04/16/2024) Medications Medication Sig Dispensed Refills Start Date [...] Sodium 40 MG Oral Tablet Delayed Release (Protonix)Indications :Gastroesophageal reflux disease with esophagitis without hemorrhage Take 1 Tablet by mouth in the morning and 1 Tablet in the evening. 180 Tablet 3 08/14/2023 Active Montelukast Sodium 10 MG Oral Tablet (Singulair)Indication s:Mild intermittent extrinsic asthma without complication Take 1 Tablet by mouth at bedtime. 90 Tablet 3 12/31/2023 Active Gabapentin 300 MG Oral Capsule (Neurontin)Indication s:Peripheral polyneuropathy TAKE 1 CAPSULE BY MOUTH AT [...] Active EpiPen 2-Caleb 0.3 MG/0.3ML Injection Solution Auto-injectorIndicati ons:Severe allergy, initial encounter For a severe reaction: Place orange end against the outer thigh, press firmly, hold in place for 10 seconds and go to the Emergency room. 2 Each 3 02/12/2024 Active Allopurinol 100 MG Oral Tablet (Zyloprim)Indications :H/O: gout TAKE TWO TABLETS BY MOUTH IN THE MORNING 180 Tablet 3 03/10/2024 Active Atorvastatin Calcium 20 MG Oral Tablet (Lipitor)Indications: takes in the evening TAKE 1 TABLET BY MOUTH EVERY OTHER DAY 45 Tablet 1 03/12/2024 Active Levothyroxine Sodium 112 MCG Oral Tablet (Levoxyl)Indications: Acquired hypothyroidism Take 1 Tablet by mouth daily first thing in the morning. 30 min before other food or meds. 90 Tablet 3 03/14/2024 Active LORazepam 0.5 MG Oral Tablet (Ativan)Indications:L blaine-term current use of benzodiazepine Take 1 Tablet by mouth 2 times a day as needed for Anxiety. 60 Tablet 03/24/2024 Active Loratadine 10 MG Oral Tablet (Claritin)Indications :Rash and nonspecific skin eruption Take 1 Tablet by mouth in the morning and 1 Tablet before bedtime. 60 Tablet 03/24/2024 Active Famotidine 20 MG Oral Tablet (Pepcid)Indications:R jade and nonspecific skin eruption Take 1 Tablet by mouth in the morning and 1 Tablet before bedtime. 60 Tablet 03/24/2024 Active documented as of this encounter (statuses as of 04/16/2024) Active Problems Problem Noted Date Diagnosed Date [...] as of this encounter (statuses as of 04/16/2024) Immunizations Name Administration Dates Next Due COVID-19 [...] Care Team (Late st Contact Info) Description 04/29/2024 3:00 PM EDT Office Visit Cardiology, [facility] [address] [facility] [place] [address] Caroline Morales CRNP [address] [facility] [place] [address] 07/04/2024 3:00 PM EDT Office Visit [facility] [address] [facility] [phone] Mine Beverly MD [address] [place] [facility] [place] [address] 07/11/2024 11:40 AM EDT Office Visit Sleep Disorders [facility] [address] [facility] [place] [phone] Diamond Kwong, [address] [place] [address] 08/05/2024 3:00 PM EDT Office Visit Nutrition & Weight Management, [facility] [address] [place] [address] Cande Do PA-C [address] [place] [address] 08/05/2024 3:50 PM EDT Nutrition Services Nutrition & Weight Management, [facility] [address] [place] [address] Merissa Shankar RDN [address] [place] [address] Pending Results Name Type Priority Associated Diagnoses Date /Time CBC WITH WBC DIFFERENTIAL Lab Routine Cellulitis 04/16/2024 12:47 PM EDT CBC Lab Routine Cellulitis 04/16/2024 12:47 PM EDT DIFFERENTIAL, AUTOMATED Lab Routine Cellulitis 04/16/2024 12:47 PM EDT Scheduled Procedures Name Priority Associated [...] 07/11/2023, 0804/2023, 01/30/2023, Additional history exists Diabetic Foot Exam [...] as of this encounter Visit Diagnoses Diagnosis Cellulitis Cellulitis and abscess of unspecified site documented in this encounter Care Teams Repairer And Checker Relationship Specialty Start Date End Date Mine Beverly MD [address] [place] [address] PCP - General Family Medicine 07/12/21 documented as of this encounter
--- OUTSIDE RECORDS SUMMARY | 2024-09-26 11:40 | External Medical Summary | Summary of Care ---
Author Name Unknown Organization [facility] Address [address] [place] [address] Phone [phone] Care Team Providers Care Bias Binding Cutter Name Role Phone Mine Beverly MD Primary Care Provid er Reason for Visit * Reason Onset Date Comments Durable Medical Equipment 07/11/2024 CPAP s upplies Encounter Details Date Type Department Care Team (Late st Contact Info) Description 07/11/2024 Telephone Sleep Disorders [facility] [address] [facility] [place] [phone] Diamond Kwong [address] [facility] [place] [address] Durable Medical Equipment (CPAP supplies ) Allergies [...] Telephone Encounter - Paola Poe OSA - 07/11/2024 2:08 PM EDT DME order for CPAP supplies submitted to [facility]. documented in this encounter Plan of Treatment Upcoming Encounters Date Type Department Care Team (Late st Contact Info) Description 07/14/2024 2:30 PM EDT Office Visit Orthopaedics [facility] [address] [facility] [place] [address] Jay Pacheco DO [address] [place] [address] 07/19/2024 10:30 AM EDT Laboratory Laboratory, [facility] [address] [facility] [place] [phone] [facility] [address] [facility] [place] [address] 07/21/2024 2:30 PM EDT [facility] [address] [place] [address] Jay Pacheco DO [address] [place] [address] 07/28/2024 2:30 PM EDT Office Visit Orthopaedics [facility] [address] [place] [address] Jay Pacheco DO [address] [place] [address] 08/05/2024 3:00 PM EDT Office Visit Nutrition & Weight Management, [facility] [place] [address] Cande Do PA-C [address] [place] [address] 08/05/2024 3:50 PM EDT Nutrition Services Nutrition & Weight Management, [facility] [address] [place] [address] Merissa Shankar RDN [address] [facility] [place] [address] 01/01/2025 4:00 PM EDT Cardiac Studies Cardiac Studies, [facility] [address] [facility] [place] [address] 01/14/2025 3:30 PM EDT Office Visit Cardiology, [facility] [address] [facility] [place] [address] Sonia Farrar CRNP [address] [place] [address] 02/27/2025 4:00 PM EDT Office Visit [facility] [address] [place] [phone] Mine Beverly MD [address] [place] [address] Scheduled Procedures Name Priority Associated Diagnoses Date/Ti [...] filedocumented as of this encounter Care Teams Bias Binding Cutter Relationship Specialty Start Date End Date Mine Beverly MD [address] [place] [address] PCP - General Family Medicine 07/12/21 documented as of this encounter
--- OUTSIDE RECORDS SUMMARY | 2024-09-26 11:40 | External Medical Summary ---
Author Name Unknown Address Unknown Organization K01:[facility] [place] [address] [place] [address] Laboratory Report Ordering Provider Test Date Status ANGELICA HARDING 07/14/2024 15:10:09 Final Observation Date Value Abnormality Reference (Units ) Status Vitamin B12 07/14/2024 15:10:09 1441 Above high normal [id number] (pg/mL) Final Performing Location [facility] - [address] [place] [address]
--- OUTSIDE RECORDS SUMMARY | 2024-09-26 11:40 | External Medical Summary | Summary of Care ---
Author Name Unknown Organization [facility] Address [address] [place] [address] Phone [phone] Care Team Providers Care Steam Table Worker Name Role Phone Mine Beverly MD Primary Care Provid er Reason for Referral * Precert (Diagnostic Medical) (Within 10 days (routine)) - Pending Review Specialty Diagnoses / Procedures Referred By Contac t Referred To Contact Cardiac Studies Diagnoses Aortic valve sclerosis HTN, goal below 130/80 Procedures ECHO, COMPLETE (2D), TRANS-THORACIC Sonia Farrar CRNP [address] [place] [address] Referral ID Status Reason Start Date Expiration Date Visits Requested Visits Authorized [id number] Pending Review Precert 01/01/2025 999 999 Reason for Visit * Reason Comments Follow Up Encounter Details Date Type Department Care Team (Late st Contact Info) Description 06/10/2024 3:30 PM EDT Office Visit Cardiology, [facility] [address] [place] [address] Sonia Farrar CRNP [address] [place] [address] Aortic valve sclerosis*; HTN, goal below 130/80; Dyslipidemia, goal LDL below 70; KEELY (obstructive sleep apnea) Allergies Active Allergy Reactions Criticality Noted Date Comments Diphenhydramine Anaphylaxis High 03/12/2019 Shellfish-Derived Products High 2 anaphylaxis documented as of this encounter (statuses as of 06/10/2024) Medications Medication Sig Dispensed Refills Start Date [...] the evening. 180 Tablet 3 08/14/2023 Active Gabapentin 300 MG Oral Capsule (Neurontin)Indicati [...] 03/12/2024 Active LORazepam 0.5 MG Oral Tablet (Ativan)Indications [...] 05/13/2024 Active Loratadine 10 MG Oral Tablet (Claritin)Indicatio ns:Rash [...] taking differently:20 mg OralPRN, Reported on 06/10/2024 LORazepam 0.5 MG Oral Tablet Take 1 Tablet by mouth. 4 Discontinu ed(Patient preference /discontin uation) Montelukast Sodium 10 MG Oral Tablet (Singulair)Indicati ons:Mild intermittent extrinsic asthma without complication Take 1 Tablet by mouth at bedtime. 90 Tablet 3 12/31/2023 4 Discontinu ed(Patient preference /discontin uation) buPROPion HCl ER (SR) 150 MG Oral Tablet Extended Release 12 Hour (Wellbutrin SR) Take 1 tab by mouth once a day for 1 week then take 1 tab twice a day (morning & late afternoon) 60 Tablet 2 01/22/2024 4 Discontinu ed(Patient preference /discontin uation) Naltrexone HCl 50 MG Oral Tablet (Revia) Take 1/2 tab by mouth once a day for 1 week then take 1/2 tab twice a day (morning & late afternoon) 30 Tablet 2 01/22/2024 4 Discontinu ed(Patient preference /discontin uation) documented as of this encounter (statuses as of 06/10/2024) Active Problems Problem Noted Date Diagnosed Date [...] as of this encounter (statuses as of 06/10/2024) Immunizations Name Administration Dates Next Due COVID-19 [...] Sign Reading Time Taken Comments Blood Pressure 98/56 06/10/2024 3:33 PM EDT Pulse 68 06/10/2024 3:33 PM EDT Temperature - - Respiratory Rate 16 06/10/2024 3:33 PM EDT Oxygen Saturation - - Inhaled Oxygen Concentration - - Weight 118.4 kg (261 lb 1.6 oz) 06/10/2024 3:33 PM EDT Height - - Body Mass Index 41.96 02/12/2024 9:03 AM EDT documented in this encounter Progress Notes * Sonia Farrar CRNP - 06/10/2024 3:30 PM EDT 06/10/2024 Cardiology Follow Up Primary Medical Radiation Tech: Dr. Moss Cardiac Problems: Angiographically normal coronary arteries per cardiac catheterization in 2017, due to false-positive stress testing Normal nuclear stress 10/2020 Hypertension KEELY, on BiPAP Morbid obesity, status post gastrectomy 01/2021 Type 2 diabetes Chronic ventricular ectopy Single kidney, status post right nephrectomy, 9 months of age Remote hx of PE approx 2011- on AC x 6 months. Familial history of aortic valve disease, mother and brother HPI: Angy Shafer is a 64 year old female presents for routine cardiology follow up. Patient was last seen office on October 03, 2023 by JAIRON Yeboah is a doing well from a cardiac perspective. patient had been diagnosed with influenza A and RSV September of 2023 and subsequent secondary infection therefore she was on antibiotics and steroids. Patient presents today feeling well from a cardiac perspective. Denies any chest pain, pressure or palpitations. NO shortness of breath, PND, pre-syncope, syncope or edema. Remains active. BP low normal today, but patient is asymptomatic. She is no longer on any anti-hypertensive therapies. Reviewed most recent echocardiogram with patient which demonstrates normal LVEF, no wall motion abnormalities and no significant valvular disease. Compliant on all medication therapies with no untoward effects. Most recent lipid panel within the past year shows stable results. REVIEW OF SYSTEMS: See HPI for pertinent positives. All others negative other than those noted in the HPI. CONSTITUTIONAL: No change in weight, No weakness, No fatigue and No fevers, No sweats or chills. PULMONARY: No cough, sputum, or hemoptysis, No wheezing, No shortness or breath and No recent change in breathing. CARDIOVASCULAR: No chest pain, No dyspnea on exertion, No edema, No palpitations and No syncope. GASTROINTESTINAL: No abdominal pain, No change in bowel habits, No significant heartburn, No nausea, No vomiting, No diarrhea, No constipation, No blood in stools or black tarry stools. No dysphagia. HEMATOLOGIC: No abnormal bleeding and No bruising. NEUROLOGICAL: Normal balance, No headaches and No weakness. Review of patient's allergies indicates: Allergen Reactions Diphenhydramine Anaphylaxis Shellfish-Derived Products anaphylaxis Current Outpatient Medications Medication Sig Dispense Refill [...] Take 1 Capsule by mouth at bedtime. Pantoprazole Sodium 40 MG Oral Tablet Delayed Release (Protonix) Take 1 Tablet by mouth in the morning and 1 Tablet in the evening. 180 Tablet 3 Gabapentin 300 MG Oral Capsule (Neurontin) TAKE 1 CAPSULE BY MOUTH AT BEDTIME 90 Capsule 3 Allopurinol 100 MG Oral Tablet (Zyloprim) TAKE TWO TABLETS BY MOUTH IN THE MORNING 180 Tablet 3 Atorvastatin Calcium 20 MG Oral Tablet (Lipitor) TAKE 1 TABLET BY MOUTH EVERY OTHER DAY 45 Tablet 1 LORazepam 0.5 MG Oral Tablet (Ativan) Take 1 Tablet by mouth 2 times a day as needed for Anxiety. 60 Tablet 0 Levothyroxine Sodium 112 MCG Oral Tablet (Levoxyl) Take 1 Tablet by mouth daily first thing in the morning. 30 min before other food or meds. 90 Tablet 0 Loratadine 10 MG Oral Tablet (Claritin) Take 1 Tablet by mouth in the morning and 1 Tablet before bedtime. 60 Tablet 0 Famotidine 20 MG Oral Tablet (Pepcid) Take 1 Tablet by mouth in the morning and 1 Tablet before bedtime. (Patient taking differently: Take 1 Tablet by mouth as needed.) 60 Tablet 5 EpiPen 2-Caleb 0.3 MG/0.3ML Injection Solution Auto-injector For a severe reaction: Place orange end against the outer thigh, press firmly, hold in place for 10 seconds and go to the Emergency room. 2 Each 3 No current facility-administered medications for this visit. Past Medical History: Diagnosis Date GERD (gastroesophageal reflux disease) Other insomnia Sleep apnea, obstructive Type 2 diabetes mellitus without complication, without long-term current use of insulin (HCC) diet controlled since bariatric surgery Family History Problem Relation Name Age of Onset Diabetes Mother Hypertension Mother Other (aortic stenosis s/p valve replacement) Mother Diabetes Father Hypertension Father Alzheimer's disease Father No Known Problems Brother in 20s Diabetes Grandmother (Maternal) Aortic stenosis Brother cardiomyopathy No Known Problems Son Breast Cancer No significant family history Social History Socioeconomic History Marital status: Occupational History Occupation: RN Employer: [employer] [id number] Tobacco Use Smoking status: Former Current packs/day: 0.00 Average packs/day: 1 pack/day for 5.0 years (5.0 ttl pk-yrs) Types: Cigarettes Start date: 10/15/1975 Quit date: 10/15/1980 Years since quittin.6 Smokeless tobacco: Never Vaping Use Vaping status: Never Used Substance and Sexual Activity Alcohol use: Never Drug use: Never Sexual activity: Never Social Determinants of Health Food Insecurity: No Food Insecurity (05/19/2022) Hunger Vital Sign Worried About Running Out of Food in the Last Year: Never true Ran Out of Food in the Last Year: Never true Social Connections OBJECTIVE/PHYSICAL EXAMINATION: BP 98/56 | Pulse 68 | Resp 16 | Wt 118.4 kg (261 lb 1.6 oz) | BMI 41.96 kg/m | BSA 2.35 m General: No acute distress. A+Ox3. HEENT: Normocephalic. Atraumatic. PERRL. EOMI. Conjunctiva and sclera clear. NECK: No carotid bruits. No JVD. Carotid upstrokes are brisk. Heart: RRR. S1 and S2 noted. No murmur. No rubs or gallops. PMI non displaced. Lungs: Clear to auscultation. No wheezes.No rhonchi. No rales. Abdomen: Normal bowel sounds. Soft. Nontender. No masses or organomegaly. No abdominal bruits. Extremities: No edema. No clubbing or cyanosis. Pulses: radial=2/4, posterior tibial=2/4, dorsalis pedis = 2/4. NEURO: No focal deficits. PSYCH: Appropriate affect and insight. DATA Labs & Imaging Reviewed Below: Echo 01/01/2024: Interpretation Summary The examination is adequate to evaluate the referral indication. The LV wall thickness is normal. The left ventricular wall motion is normal. The left ventricular diastolic function is mildly abnormal (grade I). Mild aortic valve sclerosis is present. Aortic stenosis is absent. The qualitative LV ejection fraction is 60-64% (normal). Compared to the previous study dated 12/29/2022, there has been no significant interval change Echo 12/2022 The examination is adequate to evaluate the referral indication. The qualitative LV ejection fraction is 60-64% (normal). The LV wall thickness is normal. The left ventricular wall motion is normal. The left atrium is mildly enlarged (35-41 ml/m^2). The left ventricular diastolic function is mildly abnormal (grade I). The aortic valve has three leaflets. There is aortic valve sclerosis without stenosis. Sclerosis involves primarily the non-coronary cusp. The aortic root and proximal ascending aorta are normal sized. Compared to prior study of 08/23/2021, there is no significant change. Echo 08/2021 The primary indication after review was deemed appropriate and the examination was performed. The qualitative LV ejection fraction is 60-64% (normal). The LV wall thickness is normal. The left ventricular wall motion is normal. The left atrium is moderately enlarged (42-48 ml/m^2). The left ventricular diastolic function is mildly abnormal (grade I). There is aortic valve sclerosis without stenosis. Sclerosis involves primarily the non-coronary cusp. The aortic root and proximal ascending aorta are normal sized. No prior study available for comparison. A trivial circumferential pericardial effusion is noted. Lipid Panel Results: Results for orders placed or performed in visit on 07/11/23 LIPID PANEL WITH DIRECT LDL IF TG IS HIGH Result Value Ref Range Triglycerides 55 <=174 mg/dL Cholesterol 156 <200 mg/dL HDL Cholesterol 81 >49 mg/dL Non-HDL Cholesterol 75 <=159 mg/dL LDL Cholesterol 64 <=129 mg/dL ASSESSMENT/PLAN: 64 year old year old female 1. Aortic valve sclerosis -Denies any change in her functional capacity -Significant family history of valvular heart disease. -Obtain echocardiogram at one year interval to assess overall structure and function - ECHO, COMPLETE (2D), TRANS-THORACIC; Future 2. HTN, goal below 130/80 -Well controlled. Not requiring any medication therapies - ECHO, COMPLETE (2D), TRANS-THORACIC; Future 3. Dyslipidemia, goal LDL below 70 -Recent labs stable, recommend yearly repeat -Continue Atorvastatin 4. KEELY (obstructive sleep apnea) -Continue on Bipap DISPOSITION: Follow up 5-6 months echo prior or if symptoms worsen/fail to improve. All questions were answered to the patients satisfaction. Patient advised to report to ED with any and all emergencies. The patient agrees to the above plan and will call with additional questions or concerns. JAIRON Womack [facility], [address] [address] I spent a total of 35 minutes on the date of service in preparation, delivery, and documentation ofthe care provided to Angy Shafer excluding any time spent in the performance of separately billed services. This chart was completed in part utilizing [employer] Speech Voice Recognition Software. Grammatical errors, random word insertions, pronoun errors, and incomplete sentences are an occasional consequence of this system due to software limitations, ambient noise, and hardware issues. Any formal questions or concerns about the content, text, or information contained within the body of this dictation should be directly addressed to the provider for clarification. documented in this encounter Nursing Notes * Cindi Vance CMA - 06/10/2024 3:23 PM EDT Chief Complaint Patient presents with Follow Up Examination Room: 3 Name: Angy Shafer Date of : (1960). Reason for Visit: 6 month follow up Interim Hospitalization(s): ER for post op complications, needed checked for infection and dvt Problems/Concerns: Denies concerns Chest Pain/SOB: Denies [facility] Discussed: Yes [facility] is a way you can talk to your provider online through e-mail. Would you like to sign up? I can activate it for you? ALREADY ACTIVE Patient was instructed to not get up on the exam table until directed and assisted by their provider; patient is to remain seated in the chair/ wheelchair/ exam table for fall prevention and safety reasons. Patient is aware to have assistance to step down off exam table with personnel. Patient voiced full comprehension of instructions. documented in this encounter Plan of Treatment Upcoming Encounters Date Type Department Care Team (Late st Contact Info) Description 07/04/2024 3:00 PM EDT Office Visit [facility] [address] [place] [address] Mine Beverly MD [address] [place] [address] 07/11/2024 11:40 AM EDT Office Visit Sleep Disorders Ctr [facility] [address] [facility] [place] [phone] Diamond Kwong, [address] [place] [address] 07/14/2024 2:30 PM EDT Office Visit Orthopaedics [facility] [address] [place] [address] Jay Pacheco, DO [address] [place] [address] 07/21/2024 2:30 PM EDT Office Visit Orthopaedics [facility] [address] [place] [address] Jay Pacheco, DO [address] [place] [address] 07/28/2024 2:30 PM EDT Office Visit Orthopaedics [facility] [address] [facility] [place] [address] Jay Pacheco, DO [address] [place] [address] 08/05/2024 3:00 PM EDT Office Visit Nutrition & Weight Management, [facility] [address] [facility] [place] [address] Cande Do PA-C [address] [facility] [place] [address] 08/05/2024 3:50 PM EDT Nutrition Services Nutrition & Weight Management, [facility] [address] [facility] [place] [place] [address] Merissa Shankar RDN [address] [facility] [place] [address] 01/01/2025 4:00 PM EDT Cardiac Studies Cardiac Studies, [facility] [address] [facility] [place] [address] 01/14/2025 3:30 PM EDT Office Visit Cardiology, [facility] [address] [facility] [place] [place] [address] Sonia Farrar CRNP [address] [place] [address] Scheduled Orders Name Type Priority Associated Diagnoses Orde r Schedule ECHO, COMPLETE (2D), TRANS-THORACIC Echocardiology Routine Aortic valve sclerosis HTN, goal below 130/80 Expected: 01/01/2025 (Approximate), Expires: 07/10/2026 Scheduled Procedures Name Priority Associated Diagnoses Date/Ti [...] 03/24/2025 024, 01/30/2023, 01/02/2022 TSH 03/24/2025 03/24/2024, 04/1 05/2023, 01/02/2022 Lipid Panel 07/11/2028 07/11/2023, 06/16, [...] as of this encounter Visit Diagnoses Diagnosis Aortic valve sclerosis- Primary Aortic valve disorders HTN, goal below 130/80 Unspecified essential hypertension Dyslipidemia, goal LDL below 70 Other and unspecified hyperlipidemia KEELY (obstructive sleep apnea) Obstructive sleep apnea (adult) (pediatric) documented in this encounter Care Teams Steam Table Worker Relationship Specialty Start Date End Date Mine Beverly MD [address] [place] [address] PCP - General Family Medicine 07/12/21 documented as of this encounter"
--- OUTSIDE RECORDS SUMMARY | 2024-09-26 11:40 | External Medical Summary | Summary of Care ---
Author Name Unknown Organization [facility] Address [address] [place] [address] Phone [phone] Care Team Providers Care Foreign Student Adviser Teacher Name Role Phone Mine Beverly MD Primary Care Provid er Reason for Visit * Reason Comments Follow Up Bilateral knee gelsy n Encounter Details Date Type Department Care Team (Latest Contact Info) Description 07/14/2024 2:30 PM EDT Office Visit Orthopaedics [facility] [address] [facility] [place] [address] Jay Pacheco, [address] [facility] [place] [address] Primary osteoarthritis of left knee*; Primary osteoarthritis [...] - 07/14/2024 2:30 PM EDT Angy Shafer [id number] Angy Shafer is a 64 year old female who presents for follow up of bilateral knee injury to [facility] Sports Medicine. Angy Shafer is here unaccompanied [...] complication, without long-term current use of insulin ([facility]) diet controlled since bariatric surgery Patient Active [...] allergy Morbid obesity due to excess calories ([facility]) Diet-controlled type 2 diabetes mellitus ([facility]) Body mass index (BMI) of 40.0 to 44.9 in adult ([facility]) Single kidney Current Outpatient Medications [...] Pacheco, DO Primary Care Sports Medicine Orthopaedics [address] [address] This chart was completed in part utilizing [employer] Voice Recognition Software. Grammatical errors, random [...] Pacheco DO Sports Medicine Primary Care Orthopaedics [facility] [address] [facility] [address] documented in this encounter Nursing Notes * Manuela Parada MED ASSIST - 07/14/2024 2:50 PM EDT Bilateral knee, 1st gelsyn documented in this encounter Plan of Treatment Upcoming Encounters Date Type Department Care Team (Late st Contact Info) Description 07/14/2024 3:10 PM EDT Imaging Radiology [place] [address] [place] [address] Arrived 07/14/2024 3:30 PM EDT Laboratory Laboratory, [address] [place] [address] Ashlee Reyna [address] [address] [employer] Other*[id number]; Long-term current use of benzodiazepine; Type 2 diabetes mellitus without complication, without long-term current use of insulin (HCC); Diet-controlled type 2 diabetes mellitus ([facility]); Acquired hypothyroidism; KEELY on CPAP; Frequent PVCs; Body mass index (BMI) of 40.0 to 44.9 in adult ([facility]); Gastroesophageal reflux disease, unspecified whether esophagitis present; Dyslipidemia, goal LDL below 70; Single kidney; Anxiety; Gastroesophageal reflux disease with esophagitis without hemorrhage 07/21/2024 2:30 PM EDT Office Visit [facility] [address] [place] [address] Jay Pacheco DO [address] [place] [address] 07/28/2024 2:30 PM EDT Office Visit [facility] [address] [place] [address] Jay Pacheco DO [address] [place] [address] 08/05/2024 3:00 PM EDT Office Visit Nutrition & Weight Management, [facility] [place] [address] Cande Do PA-C [address] [place] [address] 08/05/2024 3:50 PM EDT Nutrition Services Nutrition & Weight Management, [facility] [address] [place] [address] Merissa Shankar RDN [address] [place] [address] 01/01/2025 4:00 PM EDT Cardiac Studies Cardiac Studies, [facility] [address] [facility] [place] [address] 01/14/2025 3:30 PM EDT Office Visit Cardiology, [facility] [address] [place] [address] Sonia Farrar CRNP [address] [place] [address] 02/27/2025 4:00 PM EDT Office Visit Family [facility] [address] [place] [id number] Mine Beverly MD [address] [place] [address] Scheduled Orders Name Type Priority Associated Diagnoses [...] Primary localized osteoarthrosis, lower leg [employer] Other*[id number] Long-term current use of benzodiazepine Type 2 [...] Left documented in this encounter Care Teams Foreign Student Adviser Teacher Relationship Specialty Start Date End Date Mine Beverly MD [address] [place] [address] PCP - General Family Medicine 07/12/21 documented as of this encounter
--- OUTSIDE RECORDS SUMMARY | 2024-09-26 11:40 | External Medical Summary | Summary of Care ---
Author Name Unknown Organization [facility] Address [address] [place] [address] Phone [phone] Care Team Providers Care Altitude Chamber Technician Name Role Phone Meaghan Dominguez MD Primary Care Provid er Reason for Visit * Reason Onset Date Comments Medication Refill 05/12/2024 Encounter Details Date Type Department Care Team (Late st Contact Info) Description 05/12/2024 Refill [facility] [address] [facility] [place] [phone] Meaghan Dominguez MD [address] [place], [place] [phone] Acquired hypothyroidism; Rash and nonspecific skin eruption Allergies Active Allergy Reactions Criticality Noted Date Comments Diphenhydramine Anaphylaxis High 03/12/2019 Shellfish-Derived Products High 2 anaphylaxis documented as of this encounter (statuses as of 05/13/2024) Medications Medication Sig Dispensed Refills Start Date [...] needed for Anxiety. 60 Tablet 03/24/2024 Active Famotidine 20 MG Oral Tablet (Pepcid)Indications: Rash and nonspecific skin eruption Take 1 Tablet by mouth in the morning and 1 Tablet before bedtime. 60 Tablet 03/24/2024 Active Levothyroxine Sodium 112 MCG Oral Tablet (Levoxyl)Indications :Acquired hypothyroidism Take 1 Tablet by mouth daily first thing in the morning. 30 min before other food or meds. 90 Tablet 05/13/2024 Active Loratadine 10 MG Oral Tablet (Claritin)Indication s:Rash and nonspecific skin eruption Take 1 Tablet by mouth in the morning and 1 Tablet before bedtime. 60 Tablet 05/13/2024 Active Levothyroxine Sodium 112 MCG Oral Tablet (Levoxyl)Indications :Acquired hypothyroidism Take 1 Tablet by mouth daily first thing in the morning. 30 min before other food or meds. 90 Tablet 3 03/14/2024 4 Discontinue d(Refill) Loratadine 10 MG Oral Tablet (Claritin)Indication s:Rash and nonspecific skin eruption Take 1 Tablet by mouth in the morning and 1 Tablet before bedtime. 60 Tablet 03/24/2024 4 Discontinue d(Refill) documented as of this encounter (statuses as of 05/13/2024) Active Problems Problem Noted Date Diagnosed Date [...] as of this encounter (statuses as of 05/13/2024) Immunizations Name Administration Dates Next Due COVID-19 [...] encounter Miscellaneous Notes * Telephone Encounter - Ming Helm RPh - 05/13/2024 9:27 AM EDT RX authorized. Zero refills given until upcoming appt. 07/04/2024 Ming Helm RPh * Telephone Encounter - Ming Helm [facility] - 05/13/2024 9:27 AM EDTSigned Prescriptions: Disp Refills Levothyroxine Sodium 112 MCG Oral Tablet (*90 Tab*0 Sig: Take 1 Tablet by mouth daily first thing in the morning. 30 min before other food or meds. Authorizing Provider: MEAGHAN DOMINGUEZ Ordering User: MING HELM Loratadine 10 MG Oral Tablet (Claritin) 60 Tab*0 Sig: Take 1 Tablet by mouth in the morning and 1 T ablet before bedtime. Authorizing Provider: MEAGHAN DOMINGUEZ Ordering User: MING HELM documented in this encounter Plan of Treatment Upcoming Encounters Date Type Department Care Team (Late st Contact Info) Description 06/10/2024 3:30 PM EDT Office Visit Cardiology, [facility] [address] [facility] [place] [address] Sonia Farrar CRNP [address] [facility] [place] [address] 07/04/2024 3:00 PM EDT Office Visit [facility] [address] [facility] [phone] Meaghan Dominguez MD [address] [facility] [place] [address] 07/11/2024 11:40 AM EDT Office Visit Sleep Disorders [facility] [address] [facility] [place] [phone] Diamond Kwong DO [address] [place] [address] 08/05/2024 3:00 PM EDT Office Visit Nutrition & Weight Management, [facility] [address] [place] [address] Cande Do PA-C [address] [place] [address] 08/05/2024 3:50 PM EDT Nutrition Services Nutrition & Weight Management, [facility] [address] [place] [address] Merissa Shankar RDN [address] [place] [address] Scheduled Procedures Name Priority Associated Diagnoses Date/Ti [...] as of this encounter Visit Diagnoses Diagnosis Acquired hypothyroidism Unspecified hypothyroidism Rash and nonspecific skin eruption Rash and other nonspecific skin eruption documented in this encounter Care Teams Altitude Chamber Technician Relationship Specialty Start Date End Date Meaghan Dominguez MD [address] [facility] [place] [address] PCP - General Family Medicine 07/12/21 documented as of this encounter
--- OUTSIDE RECORDS SUMMARY | 2024-09-26 11:40 | External Medical Summary | Summary of Care ---
Author Name Unknown Organization [facility] Address [address] [place] [address] Phone [phone] Care Team Providers Care Editor Dictionary Name Role Phone Mine Beverly MD Primary Care Provid er Reason for Visit * Reason Comments eRx-Medication Refill Encounter Details Date Type Department Care Team (Late st Contact Info) Description 05/15/2024 Refill [facility] [address] [place] [phone] Mine Beverly MD [address] [place] [address] Rash and nonspecific skin eruption Allergies Active [...] 03/12/2024 Active LORazepam 0.5 MG Oral Tablet (Ativan)Indications:L [...] 05/13/2024 Active Loratadine 10 MG Oral Tablet (Claritin)Indications :Rash and nonspecific skin eruption Take 1 Tablet by mouth in the morning and 1 Tablet before bedtime. 60 Tablet 05/13/2024 Active documented as of this encounter (statuses [...] encounter Miscellaneous Notes * Telephone Encounter - Adam Pearson RPh - 05/15/2024 1:23 PM EDT Refused Prescriptions: Disp Refills Famotidine 20 MG Oral Tablet (Pepcid) 60 Tab*0 Sig: Take 1 Tablet by mouth in the morning and 1 Tablet before bedtime.Refused By: ADAM PEARSON for Refusal: Duplicate Request documented in this encounter Plan of Treatment Upcoming Encounters Date Type Department Care Team (Late st Contact Info) Description 06/10/2024 3:30 PM EDT Office Visit Cardiology, [facility] [address] [facility] [place] [address] Sonia Farrar CRNP [address] [place] [address] 07/04/2024 3:00 PM EDT Office Visit [place] [address] [place] [address] Mine Beverly MD [address] [place] [address] 07/11/2024 11:40 AM EDT Office Visit Sleep Disorders [facility] [address] [facility] [place] [phone] Diamond Kwong DO [address] [place] [address] 08/05/2024 3:00 PM EDT Office Visit Nutrition & Weight Management, [facility] [address] [place] [address] Cande Do PA-C [address] [place] [address] 08/05/2024 3:50 PM EDT Nutrition Services Nutrition & Weight Management, [facility] [address] [facility] [place] [address] Merissa Shankar RDN [address] [facility] [place] [address] Scheduled Procedures Name Priority Associated Diagnoses Date/Ti [...] 2011 Depression Screening 05/19/2023 05/19/2022 COVID-19 Vaccine (24 season) 2023 08/09/2022, 03/22/2022, 09/09/2021, Additional history [...] eruption documented in this encounter Care Teams Editor Dictionary Relationship Specialty Start Date End Date Mine Beverly MD [address] [place] [address] PCP - General Family Medicine 07/12/21 documented as of this encounter
--- OUTSIDE RECORDS SUMMARY | 2024-09-26 11:41 | External Medical Summary ---
Author Name Unknown Address Unknown Organization K01:LABORATORY [facility] [place] - [address] [facility] [place] [address] Laboratory Report Ordering Provider Test Date Status ADILENE COYLE 04/16/2024 12:47:27 Final Observation Date Value Abnormality Reference (Units ) Status SYNC LEUKOCYTES IN BLOOD BY AUTOMATED COUNT 04/16/2024 12:47:27 3.49 Below low normal 4.00-10.80 (K/uL) Final Segs 04/16/2024 12:47:27 48.0 40.0-75.0 (%) Final Lymphs % 04/16/2024 12:47:27 32.7 18.0-42.0 (%) Final Monos 04/16/2024 12:47:27 13.5 Above high normal 1.0-11.0 (%) Final Eosinophils 04/16/2024 12:47:27 3.2 0.0-6.0 (%) Final Basos 04/16/2024 12:47:27 2.6 Above high normal 0.0-2.0 (%) Final Immature Granulocyte, Percent 04/16/2024 12:47:27 0.0 0.0-2.0 (%) Final Absolute Segs 04/16/2024 12:47:27 1.68 Below low normal 1.80-7.70 (K/uL) Final Lymphs, absolute 04/16/2024 12:47:27 1.14 1.00-4.80 (K/ul) Final Monos, Abs 04/16/2024 12:47:27 0.47 0.00-1.10 (K/uL) Final Eos, Abs 04/16/2024 12:47:27 0.11 0.00-0.70 (K/uL) Final Basos, Abs 04/16/2024 12:47:27 0.09 0.00-0.20 (K/uL) Final Immature Granulocytes, Number 04/16/2024 12:47:27 0.00 0.00-0.20 (K/uL) Final Performing Location LABORATORY [facility] [place] - [facility] [place] [address]
--- OUTSIDE RECORDS SUMMARY | 2024-09-26 11:41 | External Medical Summary | Summary of Care ---
Author Name Unknown Organization [facility] Address [address] [place] [address] Phone [phone] Care Team Providers Care Pneumatic Tube Operator Name Role Phone Mine Beverly MD Primary Care Provid er Reason for Visit * Reason Comments Outpatient Testing Encounter Details Date Type Department Care Team (Late st Contact Info) Description 04/16/2024 11:20 AM EDT Laboratory [facility], [place] [address] [place] [phone] [place] [address] [place], [place] [phone] Arrived Allergies Active Allergy Reactions Criticality Noted Date [...] 04/29/2024 3:00 PM EDT Office Visit Cardiology, [facility] [address] [facility] [place] [address] Caroline Morales CRNP [address] [facility] [place] [address] 07/04/2024 3:00 PM EDT [facility] [address] [facility] [phone] Mine Beverly MD [address] [place] [address] 07/11/2024 11:40 AM EDT Office Visit Sleep Disorders [facility] [address] [facility] [place] [phone] Diamond Kwong, [address] [place] [address] 08/05/2024 3:00 PM EDT Office Visit Nutrition & Weight Management, [facility] [address] [place] [address] Cande Do PA-C [address] [place] [address] 08/05/2024 3:50 PM EDT Nutrition Services Nutrition & Weight Management, [facility] [address] [place] [address] Merissa Shankar RDN [address] [place] [address] Scheduled Procedures Name Priority Associated Diagnoses Date/Ti [...] filedocumented as of this encounter Care Teams Pneumatic Tube Operator Relationship Specialty Start Date End Date Mine Beverly MD [address] [place] [address] PCP - General Family Medicine 07/12/21 documented as of this encounter
--- OUTSIDE RECORDS SUMMARY | 2024-09-26 11:41 | External Medical Summary ---
Author Name Unknown Address Unknown Organization K01:LABORATORY [facility] [place] - [facility] [address] [facility] [address] Laboratory Report Ordering Provider Test Date Status ADILENE COYLE 04/16/2024 12:47:27 Final Observation Date Value Abnormality Reference (Units ) Status WBC, Total 04/16/2024 12:47:27 3.49 Below low normal 4.00-10.80 (K/uL) Final RBC 04/16/2024 12:47:27 4.32 3.85-5.15 (M/uL) Final Hemoglobin 04/16/2024 12:47:27 13.2 12.0-15.3 (g/dL) Final HCT 04/16/2024 12:47:27 39.5 36.0-45.2 (%) Final MCV 04/16/2024 12:47:27 91.4 81.5-97.5 (fL) Final MCH 04/16/2024 12:47:27 30.6 27.0-34.0 (pg) Final MCHC 04/16/2024 12:47:27 33.4 32.0-36.0 (g/dL) Final RDW 04/16/2024 12:47:27 13.6 11.5-15.5 (%) Final Platelets 04/16/2024 12:47:27 302 140-400 (K/uL) Final MPV 04/16/2024 12:47:27 10.2 6.6-11.1 (fL) Final Nucleated erythrocytes/100 leukocytes [Ratio] in Blood by Automated count 04/16/2024 12:47:27 0 <=0 (/100 WBCs) Final Performing Location LABORATORY [facility] [place] - [address] [facility] [address]
[2024-09-26] MEDS ORDERED: ATORVASTATIN 20 MG TAB PO SCH (21:00)
== END 2024-09-25 18:15 | disposition home or self-care (01) ==
LOC: 4W 20:07 → ED 20:07 → 4W 09-25 00:45